=== PATIENT | male | born 1960 | race Caucasian/White ===

== ENCOUNTER → 2021-03-15 12:26 | Outpatient (CLI) | payer MEDICARE, SELFPAY ==
--- NOTE | ~2021-03-15 | MR_ITS ---
EXAMINATION: MR lumbar spine wo con DATE: 03/15/2021 13:18 INDICATION: Lumbar radicular pain. TECHNIQUE: Magnetic resonance imaging (MRI) of the lumbar spine was performed without intravenous con trast. Sequences included sagittal T2-weighted FSE, sagittal STIR FSE, sagittal T2-weighted FS FSE, s agittal T1-weighted FSE, and axial T2-weighted FSE. COMPARISON: Lumbar spine MRI 03/05/2014 FINDINGS: There is 3 degrees levocurvature of lumbar spine. There are chronic bilateral L5 pars defec ts. There is 10 mm anterolisthesis of L5 on S1. There is 3 mm retrolisthesis of L3 on L4 and L4 on L5 . Vertebral body heights are normal. There is moderately decreased disc height at L3-L4 and L5-S1 wit h endplate remodeling. Osseous central spinal canal developmentally small from L2 to L4. The distal s jhon cord signal intensity is normal. The conus medullaris is at T12-L1. The following disc levels a re specifically discussed: L1-L2: The disc is bulging and has an annular fissure. There is severe bilateral facet joint osteoart hritis. There is mild bilateral neural foraminal stenosis. There is mild central canal stenosis. L2-L3: The disc is bulging and has an annular fissure. There is mild bilateral facet joint osteoarthr itis. There is mild bilateral neural foraminal stenosis. There is mild central canal stenosis. L3-L4: The disc is bulging and has an annular fissure. There is moderate right and mild left facet miguel int osteoarthritis. There is moderate bilateral neural foraminal stenosis. There is mild central miah l stenosis. L4-L5: The disc is bulging and has an annular fissure. There is severe bilateral facet joint osteoart hritis. There is moderate bilateral neural foraminal stenosis. There is mild central canal stenosis. L5-S1: The disc is bulging and has an annular fissure. There is moderate bilateral facet joint osteoa rthritis. There is moderate bilateral neural foraminal stenosis. There is no central canal stenosis. IMPRESSION: 1. Moderate lumbar spondylosis, stable from 03/05/2014. 2. Chronic bilateral L5 pars defects with grade 1 anterolisthesis of L5 on S1. Reviewed, dictated and finalized at location D. [employer]
== END ==
PROVIDERS: PCP Internal Medicine
DX: M47.26 Other spondylosis with radiculopathy, lumbar region (principal)
CPT/HCPCS: 72148

== ENCOUNTER 2021-05-31 07:35 | Outpatient (CLI) | payer MEDICARE, SELFPAY ==
--- NOTE | ~2021-05-31 | CT_ITS ---
EXAMINATION: CT lung screening DATE: 05/31/2021 07:56 INDICATION: Personal history of tobacco dependence. TECHNIQUE: Computed tomography (CT) of the chest was performed without intravenous contrast. The dose -length product was 563.54 mGy-cm. Automated exposure control and iterative reconstruction technique were employed. COMPARISON: Chest dated 02/20/2007 FINDINGS: There are pleural calcifications, consistent with previous asbestos exposure. Heart size no rmal. No significant pleural or pericardial effusion. There are gallstones with distention of the gal lbladder. No thoracic lymphadenopathy. There is mediastinal lipomatosis. There is focal sclerosis of the left humerus proximally. Recommend plain film correlation. There are degenerative changes of the acromioclavicular joints. Mild thoracic spondylosis.There is a 2 mm right upper lobe nodule, image 51 . There is a 2 mm left upper lobe nodule, image 30. There is a 4 mm left lower lobe nodule, image 102 . There is mild nodular thickening of the minor fissure. No endobronchial lesions. IMPRESSION: 1. Lung-RADS category 2: Benign appearance or behavior. Continue annual screening with noncontrast lo w-dose chest CT in 12 months. Reviewed, dictated and finalized at location B. IMPRESSION: 1. Lung-RADS category 2: Benign appearance or behavior. Continue annual screeni ng with noncontrast low-dose chest CT in 12 months.
== END 2021-05-31 07:36 | disposition home or self-care (01) ==
PROVIDERS: PCP Internal Medicine; Visit Provider Internal Medicine
DX: Z12.2 Encounter for screening for malignant neoplasm of respiratory organs (principal); Z87.891 Personal history of nicotine dependence
CPT/HCPCS: 71271

== ENCOUNTER 2022-08-06 10:09 | Outpatient (CLI) | payer MEDICARE, SELFPAY ==
--- NOTE | ~2022-08-06 | CT_ITS ---
EXAMINATION: CT lung screening DATE: 08/06/2022 10:29 INDICATION: TECHNIQUE: Computed tomography (CT) of the chest was performed without intravenous contrast. The dose -length product was 598.13 mGy-cm. Automated exposure control and iterative reconstruction technique were employed. COMPARISON: CT dated 05/31/2021 9 FINDINGS: Interval development of enlarged mediastinal lymph nodes. For example right paratracheal ly mph node measures 12 mm short axis compared with 7 mm on prior examination. No significant pleural or pericardial effusion. Heart size normal. No significant pleural or pericardial effusion. There are g allstones. There are pleural calcifications on the left. There are new areas of patchy airspace conso lidation in both lungs, which may represent atelectasis and/or pneumonia. Mildly elevated right diaph ragm. There are left pleural calcifications, consistent with previous asbestos exposure. Stable 4 mm left lower lobe nodule, axial image 91 and coronal image 81. No new pulmonary nodules or masses. IMPRESSION: 1. Lung-RADS category 2: Benign appearance or behavior. Continue annual screening with noncontrast lo w-dose chest CT in 12 months. 2: Interval development of patchy bilateral consolidation in both lungs which may represent atelecta sis and/or pneumonia. 3: Interval development of mediastinal lymph node enlargement, likely reactive. 4: Cholelithiasis. Reviewed, dictated and finalized at location B. IMPRESSION: 1. Lung-RADS category 2: Benign appearance or behavior. Continue annual screeni ng with noncontrast low-dose chest CT in 12 months. 2: Interval development of patchy bilateral consolidation in both lungs which may represent atelectasis and/or pneumonia. 3: Interval development of mediastinal lymph node enlargement, likely reactive. 4: Cholelithiasis.
== END 2022-08-06 10:10 | disposition home or self-care (01) ==
PROVIDERS: PCP Family Medicine; Visit Provider Nurse Practitioner
DX: Z12.2 Encounter for screening for malignant neoplasm of respiratory organs (principal); Z87.891 Personal history of nicotine dependence; K80.20 Calculus of gallbladder without cholecystitis without obstruction
CPT/HCPCS: 71271

== ENCOUNTER 2022-09-19 09:15 | Outpatient (CLI) | payer MEDICARE, SELFPAY ==
--- NOTE | 2022-10-08 16:43 | WPDHOMESLEEP ---
Sleep Study - Home Unattended Date of Study: 09/19/22 Ordering Provider: Christopher Kirk APRN Interpreting Provider: Cici Kasper, DO Home Sleep Study Type: Watch PAT Height: 1.78 m Weight: 140.614 kg Body Mass Index: 44.4 Neck Circumference (inches): 21 [place]: 11 Reason for Sleep Study Daytime hypersomnia Sleep History The patient is a 62-year-old male with diabetes, hypertension, hyperlipidemia, neuropathy, chronic pain and history of tobacco use that had a sleep study ordered by his primary care for evaluation of sleep apnea. The patient denies awakening from sleep short of breath. He denies awakening at night with heartburn, belching or cough. He constantly snores loudly enough that others complain. He denies having trouble sleeping when he has a cold. He denies waking up gasping for air throughout the night. He denies having breathing problems at night observed by himself or others. He denies sweating excessively at night. He denies having heart palpitations or irregular heartbeats during the night. He constantly falls asleep during the day but never while driving. He denies sleep paralysis and cataplexy. He denies having trouble at school or work due to sleepiness. He rarely experiences vivid dreamlike scenes upon awakening or falling asleep. He denies feeling afraid of going to sleep. He denies having nightmares. He occasionally remembers his dreams. He occasionally has thoughts racing through his mind. He occasionally feels sad, depressed and anxious. He rarely has muscular tension. He occasionally notices parts of his body jerk. He denies kicking during the night. He frequently has crawling and aching feelings in his legs and frequently has leg pain during the night. He denies grinding his teeth during sleep and denies awakening with morning jaw pain. He is constantly bothered by pain during the day and frequently awakened by pain during the night. He frequently wakes up feeling stiff in the morning. He constantly wakes up with sore or achy muscles. He constantly wakes up with pain in the neck, spine or other joints. He goes to bed between 9-10 p.m. on both weekdays and weekends. It takes him 10 minutes to fall asleep. He wakes up 4-5 times throughout the night for unknown reasons and is able to fall back asleep within 5-10 minutes. He wakes up between 5-6 a.m. on both weekdays and weekends. He typically gets 6 hours of sleep per night. He will stay in bed for 5-10 minutes after waking up in the morning. He currently lives with his sister. He does not consume any caffeinated beverages within 2 hours of bedtime. He does not engage in physical exercise before bedtime. He will watch television before falling asleep. He will take naps in the afternoon or the evening but they are refreshing. He consumes 12 oz of caffeinated beverage per day. He quit smoking cigarettes 2 years ago. He denies alcohol and recreational drug use. [facility] Past Medical History Medical History Arthritis Change in bowel function Drowsiness High blood sugar High cholesterol Hypertension Leg pain Numbness Sexual dysfunction Snoring Swollen feet Tired Surgical History Surgical History History of tonsillectomy Family History Family History Father Diabetes mellitus Hypertension Mother Cancer of kidney Sibling Malignant neoplasm of prostate Grandparent Lung cancer Grandparent Lung cancer Other Family history of arthritis Social History Social History Smoking packs per day: 1.5 Smoking cigarettes per day: 30.0 Years smoked: 40 Smoking pack-years: 60.00 Smoking status: Former smoker Tobacco type: cigarettes Second hand tobacco smoke exposure: Yes Smoking end da
[2022-10-08 16:56] VITALS: BMI 44.4
--- NOTE | 2022-10-24 11:35 | SLEEP ---
NEW CALLS [id number]
== END 2022-09-21 09:50 | disposition home or self-care (01) ==
LOC: ANHCSM 09:15
PROVIDERS: PCP Family Medicine; Visit Provider Nurse Practitioner
DX: R06.83 Snoring (principal); R53.83 Other fatigue; G47.33 Obstructive sleep apnea (adult) (pediatric)
CPT/HCPCS: 95800

== ENCOUNTER 2022-10-16 08:43 | Outpatient (CLI) | payer MEDICARE, SELFPAY ==
--- NOTE | ~2022-10-16 | XR_ITS ---
Clinical Indication: Smoking history PA and lateral views of the chest: Comparison: 02/20/2007 Findings: There is linear scarring or atelectasis right midlung. The lungs are otherwise clear, witho ut evidence of focal consolidation or pleural effusion. Cardiomediastinal silhouette is within mariangel l limits. Bones and soft tissues are unremarkable. Impression: Linear scarring or atelectasis right midlung, otherwise unremarkable exam. Reviewed, dictated and finalized at location M. Impression: Linear scarring or atelectasis right midlung, otherwise unremarkable exam.
== END 2022-10-16 08:44 | disposition home or self-care (01) ==
PROVIDERS: PCP Family Medicine; Visit Provider Nurse Practitioner
DX: Z12.2 Encounter for screening for malignant neoplasm of respiratory organs (principal); Z87.891 Personal history of nicotine dependence; J98.4 Other disorders of lung
CPT/HCPCS: 71046

== ENCOUNTER 2023-08-14 19:50 | Inpatient (IN) | payer MEDICARE, SELFPAY ==
[2023-08-14] VITALS (9 sets, daily range): BP systolic 100–158; BP diastolic 55–84; PULSE 92–110; RESP 19–26; TEMP 35.6–36.5; O2SAT 90–97; BMI 49.8
--- NOTE | ~2023-08-14 | CT_ITS ---
EXAMINATION:CT diagnostic chest wo con DATE: 08/15/2023 14:41 INDICATION: Congestive heart failure. Pleural effusion. TECHNIQUE: Computed tomography (CT) of the chest was performed without intravenous contrast. Automate d exposure control and iterative reconstruction technique were employed. The dose-length product (DLP ) was 1133.18 mGy-cm. COMPARISON: Chest CT 08/06/2022 FINDINGS: There is moderate atelectasis in the lungs with a dependent predominance. There is a calcif ied pleural plaque on the left. There is a small right pleural effusion. The heart size is normal. Th ere are coronary artery calcifications. No pericardial effusion. The central pulmonary arteries are e nlarged, consistent with pulmonary arterial hypertension. There are gallstones in the gallbladder, wh ich is distended. Body wall edema is noted. There are old healed right rib fractures. There is mild t horacic spondylosis. IMPRESSION: 1. Small right pleural effusion. 2. Cholelithiasis. Gallbladder distention may be secondary to fasting. Correlate with physical exam t o exclude acute cholecystitis. Reviewed, dictated and finalized at location A. IMPRESSION: 1. Small right pleural effusion. 2. Cholelithiasis. Gallbladder distention may be secondary to fasting. Correlat e with physical exam to exclude acute cholecystitis.
--- NOTE | ~2023-08-14 | US_ITS ---
EXAMINATION: US renal BI DATE: 08/16/2023 09:03 INDICATION: Acute on chronic kidney disease. TECHNIQUE: Multiple ultrasound grayscale images of the kidneys were obtained. COMPARISON: Chest CT 08/15/2023 FINDINGS: The right kidney measures 12.0 x 5.9 x 5.9 cm. The left kidney measures 12.6 x 6.1 x 5.3 cm. The kidn eys demonstrate normal parenchymal echogenicity. There is no hydronephrosis. The bladder is decompres sed by a Chan catheter. IMPRESSION: 1. Normal kidneys. No hydronephrosis. Reviewed, dictated and finalized at location A.
--- NOTE | ~2023-08-14 | US_ITS ---
BILATERAL LOWER EXTREMITY VENOUS ULTRASOUND Ordering provider: Rasta Diaz MD History: . R/O DVT . Comparison: None. FINDINGS: RIGHT LOWER EXTREMITY VEINS: --COMMON FEMORAL: Patent and free of thrombus. Normal compressibility, phasic flow and augmentation. --PROXIMAL SUPERFICIAL FEMORAL: Patent and free of thrombus. Normal compressibility, phasic flow and augmentation. --DISTAL SUPERFICIAL FEMORAL: Patent and free of thrombus. Normal compressibility, phasic flow and au gmentation. --POPLITEAL: Patent and free of thrombus. Normal compressibility, phasic flow and augmentation. --POSTERIOR TIBIAL: Patent and free of thrombus. Normal compressibility, phasic flow and augmentation . Solidus is not demonstrated. Lesser saphenous is also not demonstrated. LEFT LOWER EXTREMITY VEINS: --COMMON FEMORAL: Patent and free of thrombus. Normal compressibility, phasic flow and augmentation. --PROXIMAL SUPERFICIAL FEMORAL: Patent and free of thrombus. Normal compressibility, phasic flow and augmentation. --DISTAL SUPERFICIAL FEMORAL: Patent and free of thrombus. Normal compressibility, phasic flow and au gmentation. --POPLITEAL: Patent and free of thrombus. Normal compressibility, phasic flow and augmentation. --POSTERIOR TIBIAL: Patent and free of thrombus. Normal compressibility, phasic flow and augmentation . Solidus is not demonstrated. Lesser saphenous is also not demonstrated. IMPRESSION: Negative bilateral lower extremity venous US. No deep vein thrombosis. Reviewed, dictated and finalized at location A.
--- NOTE | ~2023-08-14 | US_ITS ---
EXAMINATION: US venous doppler [facility] DATE: 08/15/2023 16:06 INDICATION: Right lower limb pain and swelling. TECHNIQUE: Grayscale ultrasound images without and with compression and Doppler ultrasound images of the bilateral lower extremity veins were obtained. COMPARISON: None. FINDINGS: The visualized portions of right common femoral vein, profunda (deep) femoral vein, femoral vein, pop liteal vein, peroneal veins, posterior tibial veins, and greater saphenous vein outflow are patent. The visualized portions of left common femoral vein, profunda femoral vein, femoral vein, popliteal v ein, peroneal veins, posterior tibial veins, and greater saphenous vein outflow are patent. IMPRESSION: 1. No deep venous thrombosis. Reviewed, dictated and finalized at location A.
--- NOTE | ~2023-08-14 | XR_ITS ---
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 RESULT: Lines, tubes, and devices: None. Lungs and pleura: Low volumes with crowding. Patchy subsegmental bibasilar airspace disease. Linear lower lung opacities, likely representing atelectasis. Mild bilateral costophrenic angle blunting. Cardiomediastinal silhouette: Stable. Other: No acute osseous or upper abdominal finding. IMPRESSION: Subsegmental bibasilar atelectasis/consolidation. Possible small bilateral effusions. Reviewed, dictated and finalized at location K. IMPRESSION: Subsegmental bibasilar atelectasis/consolidation. Possible small bilateral effu sions.
--- NOTE | ~2023-08-14 | XR_ITS ---
EXAMINATION: XR chest 1V portable DATE: 08/22/2023 11:11 INDICATION: Hypoxia. TECHNIQUE: A single frontal view of the chest was obtained. COMPARISON: Chest single view 08/14/2023, chest CT 08/15/2023 FINDINGS: There is mild atelectasis in the mid and lower lung zones. No pleural effusion or pneumotho rax. The heart size is normal. IMPRESSION: 1. Mild atelectasis in the mid and lower lung zones. Reviewed, dictated and finalized at location A.
--- NOTE | ~2023-08-14 | CT_ITS ---
EXAMINATION: CTA chest PE protocol DATE: 08/22/2023 16:27 INDICATION: Hypoxia. TECHNIQUE: Computed tomography angiography (CTA) of the chest was performed with 200 mL Omnipaque-350 intravenous contrast timed to evaluate the pulmonary arteries. Coronal maximum intensity projection 3D-reconstructions were created by the technologist. Automated exposure control and iterative reconst ruction technique were employed. The dose-length product was 2027.88 mGy-cm. COMPARISON: Chest CT 08/15/2023 FINDINGS: The lungs demonstrate moderate atelectasis with dependent predominance. There is a calcifie d pleural plaque at left lung base. No pleural effusion. The heart size is normal. No pericardial eff usion. There is no pulmonary embolus. The gallbladder is distended and contains gallstones. There is mildly enlarged right hilar lymph node, likely reactive. There is mild thoracic spondylosis. IMPRESSION: 1. No pulmonary embolus. 2. Moderate atelectasis in the lungs again seen. 3. Cholelithiasis. Gallbladder distention may secondary to fasting. Correlate with physical exam for evidence of acute cholecystitis. Reviewed, dictated and finalized at location A. IMPRESSION: 1. No pulmonary embolus. 2. Moderate atelectasis in the lungs again seen. 3. Cholelithiasis. Gallbladder distention may secondary to fasting. Correlate w ith physical exam for evidence of acute cholecystitis.
--- NOTE | 2023-08-14 19:54 | ECG_ITS ---
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 Measurements Intervals [place] Rate: 104 P: 53 DC: 185 QRS: 24 QRSD: 105 T: 34 QT: 326 QTc: 430 Interpretive Statements SINUS TACHYCARDIA DELAYED PRECORDIAL R/S TRANSITION POSSIBLE INFERIOR MYOCARDIAL INFARCTION , PROBABLY OLD BORDERLINE ST-T WAVE ABNORMALITY- LAT/HIGH LAT LEADS ABNORMAL ECG No previous ECG available for comparison Electronically Signed On 08-15-2023 09:23:58 CDT by Onesimo Pedraza D.O.
[2023-08-14] MEDS: FUROSEMIDE INJ 40 MG/4 ML VIAL IV PUSH (20:05)
[2023-08-14] MEDS: Please add drug allergy info to patient profile. 1 EACH XX (20:06)
[2023-08-14 20:14] LABS: Basophils Absolute Auto 0.1 K/mm3 (0.0-0.1); Basophils Percent Auto 0.4 % (0.2-1.2); Hemoglobin 17.6 g/dL (14.0-18.0); Immature Granulocyte Absolute 0.19 K/mm3 (0.00-0.031); Immature Granulocyte Percent A 1.5 % (0-0.5); Lymphocytes Absolute Auto 0.92 K/mm3 (0.9-3.2); Lymphocytes Percent Auto 7.2 % (18.3-44.2); Mean Corpuscular HGB Conc 29.8 g/dl (32-36); Mean Corpuscular Hemoglobin 31.3 pg (26-34); Mean Platelet Volume 10.6 fl (7.4-10.4); Monocytes Absolute Auto 2.1 K/mm3 (0.1-0.6); Monocytes Percent Auto 16.5 % (2.6-8.5); Neutrophils Absolute Auto 9.4 K/mm3 (1.3-6.7); Neutrophils Percent Auto 74.4 % (45.5-73.1); Platelet Count Result 214 k/mm3 (150-375); Red Blood Count 5.62 M/mm3 (4.6-6.20); Red Cell Distribution Width 16.9 % (11.5-14.5); White Blood Count 12.7 K/mm3 (4.5-10.0)
[2023-08-14 20:24] LABS: Ethanol < 10 mg/dL (<10)
[2023-08-14 20:25] LABS: Alanine Aminotransferase 38 U/L (6-50); Albumin Level 4.7 g/dL (3.5-5.1); Alkaline Phosphatase 92 U/L (38-126); Anion Gap 14 mmol/L (4-12); Aspartate Amino Transferase 71 U/L (17-59); Bilirubin,Total 2.1 mg/dL (0.2-1.3); Blood Urea Nitrogen 24 mg/dL (9-20); Calcium 8.4 mg/dL (8.4-10.2); Carbon Dioxide 23 mmol/L (22-30); Chloride 101 mmol/L (98-107); Estimated CRCL calculation 64 ml/min; Estimated Glomerular Filt Rate 47; Glucose 336 mg/dL (65-110); INR 1.3; Lipase 272 U/L (23-300); Magnesium 2.4 mg/dL (1.6-2.3); Potassium 5.4 mmol/L (3.4-5.0); Sodium 138 mmol/L (137-145)
[2023-08-14 20:26] LABS: Partial Thromboplastin Time 29.6 Seconds (22.3-36.8)
[2023-08-14 20:35] LABS: Lactic Acid Reflex 5.5 mmol/L (0.7-2.0)
[2023-08-14 20:40] LABS: Alveolar/Arterial O2 Gradient 567.1 mmHg; Base Excess ABG -8.1 mEq/l (+/-2.0); Fractional Inspired Oxygen 100 %; HCO3 ABG 23.3 mEq/l (22.0-26.0); Oxygen Content ABG 22.4 %vol (16.0-22.0); Oxygen Saturation ABG 88.5 % (95.0-100.0); Oxyhemoglobin 89.2 % THb (90.0-100.0); PO2 ABG 72.6 mmHg (80.0-100.0); PO2 FiO2 Ratio Arterial Blood 0.73 %; Total Hemoglobin 17.9 g/dL (12.0-18.0)
[2023-08-14 20:43] LABS: Device BIPAP; Modified Allen's Test Pass; PCO2 ABG 73.3 mmHg (35.0-45.0); Site Drawn RIGHT RADIAL; pH ABG 7.121 (7.350-7.450)
[2023-08-14 20:44] LABS: Expiratory Pressure 8 cmH2O; Inspiratory Pressure 18 cmH2O
[2023-08-14 20:50] LABS: NT Pro B Type Natriuretic Pept 5670 pg/mL (19.9-100); Troponin I 0.091 ng/mL (0.000-0.034)
[2023-08-14 20:50] LABS: Influenza A QL RT-PCR Negative (Negative); Influenza B QL RT-PCR Negative (Negative); RSV RNA, RT-PCR Negative (Negative); SARS-CoV-2 RNA PCR Negative (Negative)
[2023-08-14 20:55] LABS: Procalcitonin 0.3 ng/mL
--- NOTE | 2023-08-14 21:16 | PM.IMHP ---
H&P: HPI History of Present Illness Date/Time: 08/14/23 21:16 Chief Complaint: shortness of breath Narrative: This is a 62-year-old male with past medical history significant for obstructive sleep apnea, on CPAP, morbid obesity, congestive heart failure, patient was brought to the emergency room due to altered mental status History taking is limited as patient is on BiPAP at the time of my visit. Preliminary workup was significant for CBC with WBC count of 12, ABG was significant for a pH of 7.121, pCO2 of 73, PO2 of 70 patient was placed on BiPAP. A chest x-ray showed infiltrates. EXAMINATION:? XR chest 1V portable Exam Date/Time:? 08/14/2023 20:25 CDT HISTORY: dyspnea LOW O2 STATS [employer] [place] ? Comparison:? 10/16/2022. RESULT: Lines, tubes, and devices:? None. Lungs and pleura:? Low volumes with crowding. Patchy subsegmental bibasilar airspace disease. Linear lower lung opacities, likely representing atelectasis. Mild bilateral costophrenic angle blunting. Cardiomediastinal silhouette:? Stable. Other:? No acute osseous or upper abdominal finding. ? IMPRESSION: Subsegmental bibasilar atelectasis/consolidation. Possible small bilateral effusions. Review of Systems Review of Systems: shortness of breath ROS unobtainable: Yes unobtainable due to mental status and other ( patient on BiPAP) [facility] Social History Social History Smoking status: Former smoker Alcohol intake: never Substance use: never Do You Feel Safe in your Home?: Yes Lack of Transportation: No Lack of Food: Never True Current Housing: I Have Housing Concerned About Future Housing: No Difficulty Paying Gas/Electric Bills: No Difficulty Paying for Meds: No Currently Unemployed: No Education: High School Diploma/GED Difficulty w/ Childcare or Family Care: No Spiritual care concerns: No Meds Home Medications and Allergies Allergies Allergy/AdvReac Type Severity Reaction Status Date / Time No Known Allergies Allergy Verified 08/14/23 20:05 Vital Signs Vital Signs - 24 hr 08/14/23 19:48 08/14/23 19:58 08/14/23 19:58 Temperature 96.1 F L Pulse Rate 104 H 105 H Respiratory Rate 19 Blood Pressure 128/55 L Pulse Oximetry 96 97 Oxygen Delivery Non-Rebreather Mask Non-Rebreather Mask Oxygen Flow Rate 15 15 08/14/23 20:00 08/14/23 20:02 Temperature 96.1 F L Pulse Rate 110 H Respiratory Rate 19 Blood Pressure 128/55 L Pulse Oximetry 97 97 Oxygen Delivery BiPAP Oxygen Flow Rate Exam Narrative: patient is laying in a stretcher Const: General: comfortable, no acute distress, well developed, awake, ill appearing chronically, obese and other ( on BiPAP) Nutritional Appearance: obese morbidly obese Orientation/consciousness: oriented to person HENMT: Head: normal to inspection, normocephalic and atraumatic Ears: hearing grossly normal bilaterally Face/Nose/Sinus: normal facial exam Face and sinus: normal facial exam Eyes: General: appearance normal, both eyes and all related structures Pupils: Equal, round and reactive pupils present EOM: EOMs intact bilaterally Neck: Neck: full ROM, no lymphadenopathy and no JVD Thyroid: thyroid normal Lymphatic: no lymphadenopathy noted Resp: Effort & Inspection: normal respiratory effort, not labored, no paradoxical thoraco-abdom movements, no respiratory distress, not tachypneic, no use of accessory muscles, symmetric chest movement and other ( on BiPAP) Auscultation: clear to auscultation bilaterally Cardio: Jugular venous distension: no JVD Rate: regular rate Rhythm: regular rhythm Heart sounds: S1 normal heart sound present and S2 normal heart sound present GI: Inspection: Pannus present and obesity GI Palp: Yes Soft to palpation and Yes No hepatosplenomegaly present : General: Yes deferred Skin: Rashes: no rashes Wounds: no wounds Neuro: General: orie
--- NOTE | 2023-08-14 21:22 | ED.GENADULT ---
HPI - General Adult General Chief complaint: Shortness of Breath/Dyspnea Stated complaint: LOW O2, LETHARGIC, NOT ACTING RIGHT Time Seen by Provider: 08/14/23 19:53 History of Present Illness HPI narrative: Patient is a 62-year-old gentleman presents emergency department chief complaint of shortness of breath. Family reports the patient has been short of breath for some time and is actually been having shortness of breath with exertion for several months patient used swim a lot and now is at a point where he cannot even go swimming the patient has had significant increasing edema over the last several weeks and now has been short of breath with any form of ambulation. Related Data Allergies Allergy/AdvReac Type Severity Reaction Status Date / Time No Known Allergies Allergy Verified 08/14/23 20:05 Review of Systems Review of Systems: A 10 system review of systems was completed on the patient and is negative except for what is stated in the HPI. Nursing and ancillary documentation was reviewed. Exam Narrative: GENERAL: ill-appearing, well-nourished, and in mild acute respiratorydistress. HEAD: Normocephalic, atraumatic. EYES: PERRLA and EOMI. ENT: Nares clear, no rhinorrhea or epistaxis. Mucous membranes moist. NECK: Supple. CHEST: crackles to auscultation. mild respiratory distress. HEART: Regular rate and rhythm. No murmur heard. Normal peripheral pulses. ABDOMEN: Soft, nontender, nondistended, normal active bowel sounds. EXTREMITIES: Normal range of motion. 3+ edema. SKIN: Warm, dry, no rash. NEURO: No focal deficits. Alert and oriented x3. PSYCH: Normal mood and affect. Course Vital Signs Vital signs: Vital Signs Temperature 35.6 C L 08/14/23 19:48 Pulse Rate 104 H 08/14/23 19:48 Respiratory Rate 08/14/23 19:48 Blood Pressure 128/55 L 08/14/23 19:48 Pulse Oximetry 96 08/14/23 19:48 Oxygen Delivery Non-Rebreather Mask 08/14/23 19:48 Oxygen Flow Rate 15 08/14/23 19:48 Temperature 35.6 C L 08/14/23 20:00 Pulse Rate 110 H 08/14/23 20:00 Respiratory Rate 19 08/14/23 20:00 Blood Pressure 128/55 L 08/14/23 20:00 Pulse Oximetry 97 05/29/24 20:02 Oxygen Delivery BiPAP 08/14/23 20:02 Oxygen Flow Rate 15 08/14/23 19:[address] [facility] Narrative Medical decision making narrative: differential diagnosis includes pneumonia, CHF, ACS, electrolyte abnormality, renal failure, viral illness laboratory studies were obtained on the patient showed a white count 12.7 lactate was elevated ABG showed pH 7.121 pCO2 was 73.3. The patient was started on BiPAP electrolytes showed a BUN of 24 and creatinine 1.5 patient's lactate was 5.5 troponin 0.091 BNP was 5670 patient received IV Lasix in the emergency department also given the patient does have some consolidation on the chest x-ray and also a leukocytosis and elevated lactate the patient was empirically covered for community-acquired pneumonia. Case was discussed with the hospitalist the patient will receive further care in the inpatient setting Vital Signs Vital Signs: Vital Signs Temperature 35.6 C L 08/14/23 19:48 Pulse Rate 104 H 08/14/23 19:48 Respiratory Rate 08/14/23 19:48 Blood Pressure 128/55 L 08/14/23 19:48 Pulse Oximetry 96 08/14/23 19:48 Oxygen Delivery Non-Rebreather Mask 08/14/23 19:48 Oxygen Flow Rate 15 08/14/23 19:48 Temperature 35.6 C L 08/14/23 20:00 Pulse Rate 110 H 08/14/23 20:00 Respiratory Rate 08/14/23 20:00 Blood Pressure 128/55 L 08/14/23 20:00 Pulse Oximetry 97 08/14/23 20:02 Oxygen Delivery BiPAP 08/14/23 20:02 Oxygen Flow Rate 15 08/14/23 19:58 Lab Data 08/14/23 20:00 08/14/23 20:00 Labs: Lab Results 08/14/23 08/14/23 08/14/23 Range/Units 20:00 20:03 20:33 WBC 12.7 H (4.5-10.0) K/mm3 RBC 5.62 (4.6-6.20) M/mm3 Hgb 17.6 (14.0-18.0) g/dL Hct 59.0 H
[2023-08-14] MEDS: ASPIRIN 81 MG CHEWABLE TABLET 324 MG PO (21:26)
--- NOTE | 2023-08-14 21:42 | PC.NURSE ---
Pt O2 at 88% on bipap. MD Miguel notified. ED Respiratory notified that MD would like bipap settings changed.
[2023-08-14 22:34] LABS: Amphetamine Screen Urine Negative (Negative); Barbiturate Screen Urine Negative (Negative); Benzodiazepines Screen Urine Negative (Negative); Cannabinoid Screen Urine Negative (Negative); Cocaine Screen Urine Negative (Negative); Methadone Screen Urine Negative (Negative); Opiate Screen Urine Positive (Negative); Phencyclidine Screen Urine Negative (Negative)
[2023-08-14 22:50] LABS: Appearance Urine Clear (Clear); Bacteria Urine None Seen /hpf; Bilirubin Urine 1+ (Negative); Blood Urine Negative (Negative); Color Urine Dark Yellow (Yellow); Glucose Urine UA 3+ mg/dL (Negative); Ketones Urine Negative (Negative); Leukocyte Esterase Ur Negative LEU/UL (Negative); Need Manual Microscopic Reviewed; Nitrate Urine Negative (Negative); Non Pathogenic Casts >20; Protein Urine 1+ mg/dL (Negative); RBC Urine 0-2 /hpf (0-2); Specific Grav Ur 1.021 (1.001-1.035); Squamous Epithelial Cell Urine None Seen /hpf (Few); WBC Urine 0-5 /hpf (0-3)
[2023-08-14 22:51] LABS: Add Urine Microscopic? YES
--- NOTE | 2023-08-14 22:58 | ADMGEN ---
This patient, Walter Chavez, was admitted to IMU Room 203-01. Patient/family oriented to hospital policies and general routines including ID bracelet, bed and alarms, visiting hours, pain management, procedures, bathroom and other care routines, personal items, smoking policy, room service/diet, and visiting hours. Information on how to activate the Rapid Response Team has been discussed. Patient/Family are encouraged to report perceived risks to care and to ask questions if they do not understand what they are told or what they should do.
[2023-08-14 23:12] LABS: Reflex Lactic Acid Yes or No Add Lactic
[2023-08-14] MEDS: AZITHROMYCIN 500 MG/NS 250 ML 500 MG/250 ML BAG 250 MG IVPB (23:13)
[2023-08-14 23:51] LABS: Lactic Acid 2.1 mmol/L (0.7-2.0)
[2023-08-15] VITALS (31 sets, daily range): BP systolic 110–138; BP diastolic 61–112; PULSE 71–93; RESP 20–33; TEMP 36.5–36.9; O2SAT 88–97
[2023-08-15 00:10] LABS: Troponin I 0.576 ng/mL (0.000-0.034)
[2023-08-15] MEDS: FUROSEMIDE INJ 40 MG/4 ML VIAL IV PUSH ×3 (01:13→20:22)
[2023-08-15 01:49] LABS: Base Excess ABG -3.8 mEq/l (+/-2.0); Fractional Inspired Oxygen 100 %; HCO3 ABG 26.3 mEq/l (22.0-26.0); Oxygen Content ABG 22.7 %vol (16.0-22.0); Oxygen Saturation ABG 88.6 % (95.0-100.0); Oxyhemoglobin 89.8 % THb (90.0-100.0); PO2 ABG 67.2 mmHg (80.0-100.0); PO2 FiO2 Ratio Arterial Blood 0.67 %
[2023-08-15 01:50] LABS: PCO2 ABG 67.8 mmHg (35.0-45.0); pH ABG 7.206 (7.350-7.450)
[2023-08-15 01:51] LABS: Device NON-INVASIVE VENT; Modified Allen's Test Pass; Site Drawn RIGHT RADIAL
[2023-08-15 01:52] LABS: Non-Invasive Expiratory Pressure 12 CMH2O; Non-Invasive Inspiratory Pressure 22 CMH2O; Non-Invasive Vent Rate 25 /MIN
--- NOTE | 2023-08-15 06:00 | ECHO_ITS ---
Patient Info Name: Walter Chavez Age: 62 years : 1960 Gender: Male Ht: 70 in Wt: 347 lbs BSA: 2.87 m2 HR: 78 bpm BP: 142 / 65 mmHg Technical Quality: Fair Exam Date: 08/15/2023 7:44 AM Exam Location: Echo Lab Patient Status: Inpatient Admit Date: 08/14/2023 Staff Ordering Physician: Alen Rivera MD Palliative Nurse: Gaetano Franco RDCS Attending Provider: Bryn Alvarez MD Referring Physician: Miguel SZYMANSKI; Exam Type: CA echo dop color flow w con Study Info Indications - dyspnea - new onset chf Complete two-dimensional, color flow and Doppler transthoracic echocardiogram is performed with contrast to opacify the left ventricle and to improve the deliniation of the left ventricle endocardial borders. Contrast/Agitated Saline Contrast/Ag. Saline: Definity Amount: 5.00 ml Summary 1. Definity contrast administered improved wall motion interpretation. 2. Left ventricular chamber dimension is normal. 3. Left ventricular systolic function is normal, estimated at 60-65%. 4. There is mild concentric increased left ventricular wall thickness. 5. The left ventricular diastolic function is grade I diastolic dysfunction. 6. E/e' 7 is not elevated. 7. The mitral valve has mildly calcified leaflets. 8. No pulmonary hypertension, estimated pulmonary arterial systolic pressure is 35 mmHg. 9. Dilated inferior vena cava with >50% collapse upon inspiration consistent with elevated right atrial pressure, 10 mmHg. Left Ventricle Definity contrast administered improved wall motion interpretation. E/e' 7 is not elevated. Left ventricular chamber dimension is normal. Left ventricular systolic function is normal, estimated at 60-65%. There is mild concentric increased left ventricular wall thickness. The left ventricular diastolic function is grade I diastolic dysfunction. Right Ventricle Right ventricular chamber dimension is not well visualized. Left Atria Left atrial chamber dimension is normal. Right Atria Right atrial chamber dimension is normal. Aortic Valve The aortic valve is trileaflet. There is no aortic valve stenosis. There is no aortic valve regurgitation. Pulmonic Valve There is no pulmonic regurgitation. Mitral Valve The mitral valve has mildly calcified leaflets. There is no mitral valve stenosis. There is no mitral valve regurgitation. Tricuspid Valve There is no tricuspid valve regurgitation. No pulmonary hypertension, estimated pulmonary arterial systolic pressure is 35 mmHg. Pericardium/Pleural There is no pericardial effusion. Inferior Vena Cava Dilated inferior vena cava with >50% collapse upon inspiration consistent with elevated right atrial pressure, 10 mmHg. Aorta The aortic root size at the sinus of Valsalva is normal. Left Ventricular Outflow Tract Name Value Normal LVOT 2D LVOT Diameter 2.40 cm LVOT Doppler LVOT Peak Gradient 4 mmHg LVOT Mean Gradient 2 mmHg LVOT VTI 19.65 cm LVOT VTI/AV VTI Ratio 1.18 LVOT Stroke Volume 88.65 ml LVOT CO
[2023-08-15] MEDS: ASPIRIN 81 MG CHEWABLE TABLET PO (08:20)
[2023-08-15] MEDS: PERFLUTREN LIPID MICROSPHERES 1.5 ML VIAL DILUTED TO 10 ML TOTAL VOLUME IV PUSH (08:57)
--- NOTE | 2023-08-15 08:57 | IVDEFINITY ---
Prior to administration of IV Definity the patient was educated on the risks and benefits of the imaging enhancing agent including potential adverse side effects. The patient verbalized understanding. Allergies were verified. No exclusion criteria were identified and at least one of the following inclusion criteria were met: 1) physician request, 2) patient technically difficult to image (per the [place] [employer] guidelines of two or more segments not discernable within the apical view), or 3) questionable left ventricular function. ?
[2023-08-15 09:10] LABS: Alveolar/Arterial O2 Gradient 521.8 mmHg; Base Excess ABG -1.3 mEq/l (+/-2.0); Device NON-INVASIVE VENT; Fractional Inspired Oxygen 90 %; HCO3 ABG 26.4 mEq/l (22.0-26.0); Oxygen Content ABG 22.8 %vol (16.0-22.0); Oxygen Saturation ABG 89.9 % (95.0-100.0); Oxyhemoglobin 90.8 % THb (90.0-100.0); PCO2 ABG 54.8 mmHg (35.0-45.0); PO2 ABG 63.7 mmHg (80.0-100.0); PO2 FiO2 Ratio Arterial Blood 0.71 %; Site Drawn LEFT BRACHIAL; Total Hemoglobin 17.9 g/dL (12.0-18.0); pH ABG 7.301 (7.350-7.450)
[2023-08-15 09:11] LABS: Non-Invasive Expiratory Pressure 12 CMH2O; Non-Invasive Inspiratory Pressure 22 CMH2O; Non-Invasive Vent Rate 25 /MIN
[2023-08-15 09:42] LABS: Basophils Percent Auto 0.4 % (0.2-1.2); Eosinophils Percent Auto 0.2 % (0-4.4); Hematocrit 55.1 % (42.0-52.0); Immature Granulocyte Absolute 0.06 K/mm3 (0.00-0.031); Immature Granulocyte Percent A 0.6 % (0-0.5); Lymphocytes Absolute Auto 1.12 K/mm3 (0.9-3.2); Lymphocytes Percent Auto 10.8 % (18.3-44.2); Mean Corpuscular HGB Conc 30.9 g/dl (32-36); Mean Corpuscular Hemoglobin 31.2 pg (26-34); Mean Corpuscular Volume 101.1 fl (80-100); Mean Platelet Volume 10.6 fl (7.4-10.4); Monocytes Absolute Auto 1.5 K/mm3 (0.1-0.6); Monocytes Percent Auto 14.8 % (2.6-8.5); Neutrophils Absolute Auto 7.6 K/mm3 (1.3-6.7); Neutrophils Percent Auto 73.2 % (45.5-73.1); Nucleated Red Blood Cells Perc 1.6 % (0.0-0.2); Platelet Count Result 161 k/mm3 (150-375); Red Blood Count 5.45 M/mm3 (4.6-6.20); Red Cell Distribution Width 16.5 % (11.5-14.5); White Blood Count 10.3 K/mm3 (4.5-10.0)
[2023-08-15 10:01] LABS: Lactic Acid Reflex 1.3 mmol/L (0.7-2.0)
[2023-08-15 10:06] LABS: Anion Gap 6 mmol/L (4-12); Blood Urea Nitrogen 33 mg/dL (9-20); Calcium 8.4 mg/dL (8.4-10.2); Carbon Dioxide 32 mmol/L (22-30); Chloride 101 mmol/L (98-107); Estimated CRCL calculation 70 ml/min; Estimated Glomerular Filt Rate 47; Glucose 127 mg/dL (65-110); Magnesium 2.2 mg/dL (1.6-2.3); Phosphorus 3.6 mg/dL (2.5-4.5); Potassium 4.4 mmol/L (3.4-5.0); Sodium 139 mmol/L (137-145)
--- NOTE | 2023-08-15 11:24 | PC.NURSE ---
Spoke with Dr. Alvarez regarding pt's home medications. New order to continue all home medications starting now, except for the meloxicam and metformin; hold those medications until further notice. May start pt on moderate dose sliding scale. Orders enterd by AIDA
[2023-08-15 11:35] LABS: Glucose Point of Care 125 mg/dl (65-105)
--- NOTE | 2023-08-15 12:01 | PC.NURSE ---
Updated Dr. Brown with pt's condition. New order to continue to trend troponin until they peak. No need to call Field Test Engineer with critical troponin results, unless pt develops of chest pain.
--- NOTE | 2023-08-15 12:13 | PM.CNCAR ---
Assessment and Plan Assessment and plan (1) Acute hypercapnic respiratory failure: Code(s): J96.02 - Acute respiratory failure with hypercapnia Status: Acute Assessment and Plan: On BIPAP. Pulmonary has been consulted. (2) Congestive heart failure: Code(s): I50.9 - Heart failure, unspecified Status: Acute Assessment and Plan: Agree with IV Lasix for now. Please monitor strict I/Os. Continue Jardiance. (3) Lung infiltrate: Code(s): R91.8 - Other nonspecific abnormal finding of lung field Status: Acute Assessment and Plan: On antibiotics for possible pneumonia, management as per primary team. (4) NILDA (acute kidney injury): Code(s): N17.9 - Acute kidney failure, unspecified Status: Acute Assessment and Plan: SCr elevated at 1.5. Baseline levels unknown. (5) Elevated troponin: Code(s): R79.89 - Other specified abnormal findings of blood chemistry Status: Acute Assessment and Plan: No chest pain, EKG without ischemic changes. Echocardiogram with LVEF 60-65% without appreciable wall motion abnormalities. In setting of altered mental status, acute hypercarbic respiratory failure with pH of 7.1 on blood gas, CHF, NILDA. Will continue to trend troponins until peak. Continue ASA 81mg once daily. Will stop home Lovastatin and start high-intensity statin instead. Continue Toprol. Will determine need for ischemic evaluation depending on clinical course. (6) Morbid obesity with BMI of 45.0-49.9, adult: Code(s): E66.01 - Morbid (severe) obesity due to excess calories; Z68.42 - Body mass index [BMI] 45.0-49.9, adult Status: Acute Assessment and Plan: Recommend weight loss. Consider weight loss medication as an outpatient or outpatient referral to Bariatric surgery. (7) Diabetes mellitus: Code(s): E11.9 - Type 2 diabetes mellitus without complications Status: Acute Assessment and Plan: Management as per primary team. Will check Hgb A1c level. History of Present Illness History of Present Illness Consult date/time: 08/15/23 12:13 Requesting physician: Bryn Alvarez MD Consult reason: Other (Elevated troponin) Reason For Visit: Shortness of breath, CHF, Hypercapnic respiratory Narrative: We are consulted for elevated troponin. This is a 62 year old male with morbid obesity with BMI of 50, GIRISH, hypertension, diabetes who presented with altered mental status and acute respiratory failure. Patient reports shortness of breath for the past few weeks, mostly with exertion. Has chronic lower extremity edema, but thinks the swelling has been worse. Patient states he used to go swimming 1 mile a day, everyday, but has not been able to do that now; last time he went swimming was 2 months ago. Workup in the ER showed WBC 12.7, lactate was elevated at 2.1. ABG showed pH of 7.121, pCO2 73. CXR showed patchy subsegmental bibasilar airspace disease, possible small bilateral pleural effusions. The patient was placed on BIPAP. He was given IV Lasix. Patient denies any prior cardiac issues, does not see a warehouse operator. Troponins are 0.091, 0.576, 1.290, 2.090. NT pro BNP elevated at 5670. UDS is positive for opiates (Hydrocodone-Acetaminophen is listed as a home medication). EKG shows sinus tachycardia, nonspecific STTW abnormality. No prior EKG available for comparison. Echocardiogram shows LVEF 60-65%, grade 1 diastolic dysfunction, dilated IVC with >50% collapse. Review of Systems Review of Systems: All systems reviewed & are unremarkable except as noted in HPI and below (HPI) [facility] Social History Social History Smoking status: Former smoker Alcohol intake: never Substance use: never Do You Feel Safe in your Home?: Yes Lack of Transportation: No Lack of Food: Never True Current Housing: I Have Housing Concerned About Future Housing: No Difficulty Paying Ga
[2023-08-15 12:57] LABS: Hemoglobin A1C 6.4 % (<5.7)
[2023-08-15] MEDS: GABAPENTIN 300 MG CAPSULE PO ×2 (13:05→16:47)
[2023-08-15] MEDS: amLODIPine BESYLATE 5 MG TABLET PO (13:06)
[2023-08-15] MEDS: GLIMEPIRIDE 2 MG TABLET 4 MG PO (13:06)
[2023-08-15] MEDS: EMPAGLIFLOZIN 10 MG TABLET BY MOUTH (13:06)
[2023-08-15] MEDS: METOPROLOL TARTRATE 50 MG TAB PO ×2 (13:06→20:22)
[2023-08-15] MEDS: PIOGLITAZONE HCL 45 MG TABLET PO (13:06)
[2023-08-15] MEDS: CYCLOBENZAPRINE HCL 10 MG TABLET PO (13:06)
[2023-08-15 13:07] LABS: Cholesterol 107 mg/dL (0-200); HDL Direct 27 mg/dL; Triglycerides 119 mg/dL (<150)
[2023-08-15 13:18] LABS: LDL Cholesterol Direct 65 mg/dL
--- NOTE | 2023-08-15 13:19 | PM.CNPUL ---
Assessment and Plan Assessment and plan (1) Morbid obesity with BMI of 45.0-49.9, adult: Code(s): E66.01 - Morbid (severe) obesity due to excess calories; Z68.42 - Body mass index [BMI] 45.0-49.9, adult Status: Acute (2) Acute hypercapnic respiratory failure: Code(s): J96.02 - Acute respiratory failure with hypercapnia Status: Acute Assessment and Plan: The patient, who has a history of severe obesity and potential obstructive sleep apnea without home ventilation support, has been experiencing a gradually increasing shortness of breath over several weeks. The diagnosis is hypercapnic and hypoxemic respiratory failure, likely due to obesity hypoventilation and congestive heart failure. Initial arterial blood gases revealed both respiratory and metabolic acidosis due to elevated lactic acid levels. Since his admission, the patient's lactic acid levels have decreased and he has been receiving diuretics for his congestive heart failure. He is also being treated with antibiotics for a suspected lower respiratory tract infection, despite the absence of infection symptoms. As for the treatment plan, we will proceed with a non-contrast chest CT scan. The BiPAP settings and FiO2 have been adjusted to reduce pressure and FiO2 levels. We concur with the diuretic treatment. New blood gases will be drawn. A lower extremity study for DVT will also be conducted. Needs to go on DVT prophylaxis. I would repeat PT INR. The patient's condition will be closely monitored in collaboration with you. (3) Congestive heart failure: Code(s): I50.9 - Heart failure, unspecified Status: Acute (4) Lactic acidosis: Code(s): E87.20 - Acidosis, unspecified Status: Acute (5) Lung infiltrate: Code(s): R91.8 - Other nonspecific abnormal finding of lung field Status: Acute (6) Elevated troponin: Code(s): R79.89 - Other specified abnormal findings of blood chemistry Status: Acute (7) Diabetes mellitus: Code(s): E11.9 - Type 2 diabetes mellitus without complications Status: Acute History of Present Illness History of Present Illness Consult date: 08/15/23 Chief complaint: Shortness of breath, CHF, Hypercapnic respiratory Narrative: A 62-year-old male presented with escalating shortness of breath and increasing lower extremity edema over several weeks. He reported experiencing breathlessness during activities, which began 3-4 weeks prior to his admission, along with worsening lower extremity edema. He denied having any fever, chills, hemoptysis, chest pain, cough, or wheezing. Upon examination in the emergency room, he was diagnosed with hypoxemic hypercapnic respiratory failure and was provided with BiPAP support. He exhibited some acute changes in his mental state; however, his cognitive function has improved over the last 24 hours with BiPAP support. Currently, he is fully conscious while receiving BiPAP support with pressures set at 22/12, a respiratory rate of 25, and an FiO2 of 0.8. Initial chest x-ray revealed bilateral lower lobe infiltrates, likely atelectasis, small bilateral pleural effusions, and possible cardiomegaly. His BNP was significantly elevated, exceeding 5000. Admission arterial blood gases indicated combined respiratory and metabolic acidosis, likely chronic respiratory with an additional metabolic acidosis. His lactic acid levels were also high upon admission. He mentioned having undergone a sleep study elsewhere but he is not on home ventilatory support. Review of Systems Review of Systems: All systems reviewed & are unremarkable except as noted in HPI and below PMFSH Social History Social History Smoking status: Former smoker Alcohol intake: never Substance use: never Do You Feel Safe in your Home?: Yes Lack of Transportation: No Lack of Food: Never True Current Housing: I Have Housing Concerned Abo
[2023-08-15 13:37] LABS: Thyroid Stimulating Hormone 0.095 uIU/mL (0.465-4.680)
[2023-08-15 14:13] LABS: Alveolar/Arterial O2 Gradient 308.8 mmHg; Base Excess ABG 0.4 mEq/l (+/-2.0); Fractional Inspired Oxygen 60 %; HCO3 ABG 27.3 mEq/l (22.0-26.0); Oxygen Content ABG 22.3 %vol (16.0-22.0); Oxygen Saturation ABG 89.9 % (95.0-100.0); Oxyhemoglobin 90.2 % THb (90.0-100.0); PCO2 ABG 52.2 mmHg (35.0-45.0); PO2 ABG 61.6 mmHg (80.0-100.0); PO2 FiO2 Ratio Arterial Blood 1.03 %; Total Hemoglobin 17.6 g/dL (12.0-18.0); pH ABG 7.337 (7.350-7.450)
[2023-08-15 14:14] LABS: Device NON-INVASIVE VENT; Modified Allen's Test Pass; Site Drawn LEFT RADIAL
[2023-08-15 14:15] LABS: Non-Invasive Expiratory Pressure 6 CMH2O; Non-Invasive Inspiratory Pressure 14 CMH2O; Non-Invasive Vent Rate 16 /MIN
[2023-08-15] MEDS: HYDROcodone/acetaminophen (*CRX) 10-325 MG TABLET 1 TAB PO (16:48)
--- NOTE | 2023-08-15 19:07 | PM.IMPN ---
Progress Note: A&P Assessment and Plan (1) Acute hypercapnic respiratory failure: Code(s): J96.02 - Acute respiratory failure with hypercapnia Status: Acute Assessment and Plan: Admit to IMU under full inpatient status On continuous BiPAP Serial ABGs show slow improvement Pulmonary consult given for evaluation (2) Lung infiltrate: Code(s): R91.8 - Other nonspecific abnormal finding of lung field Status: Acute Assessment and Plan: patient started on antibiotics cultures in progress Follow-up with Pulmonary (3) Congestive heart failure: Code(s): I50.9 - Heart failure, unspecified Status: Acute Assessment and Plan: Continue with IV diuresis Daily intake and output Cardiology consult given for evaluation (4) Morbid obesity with BMI of 45.0-49.9, adult: Code(s): E66.01 - Morbid (severe) obesity due to excess calories; Z68.42 - Body mass index [BMI] 45.0-49.9, adult Status: Acute Assessment and Plan: lifestyle and diet modifications (5) Lactic acidosis: Code(s): E87.20 - Acidosis, unspecified Status: Acute Assessment and Plan: will hold metformin likely multifactorial Downtrending 5.5 > 2.1 > 1.3 ... Resolved (6) NIDLA (acute kidney injury): Code(s): N17.9 - Acute kidney failure, unspecified Status: Acute Assessment and Plan: will hold meloxicam daily intake and output renal ultrasound in a.m. Considered Nephrology evaluation (7) Diabetes mellitus: Code(s): E11.9 - Type 2 diabetes mellitus without complications Status: Acute Assessment and Plan: Continue diabetic meds Hold metformin Accu-Cheks qAC and qHS ordered with low-dose insulin coverage as per protocol (8) Elevated troponin: Code(s): R79.89 - Other specified abnormal findings of blood chemistry Status: Acute Assessment and Plan: Patient has elevated troponins secondary to likely myocardial demand ischemia versus NSTEMI Troponin peaked at 2.090, now slowly downtrending 2D echo ordered Cardiology evaluated the patient and monitor closely Ischemic evaluation as per Cardiology once patient is more stable Plan ? Patient seen and examined at bedside during my morning rounds ? Collaborated with patient's nurse at the bedside in detail and addressed all concerns ? Labs, electrolytes, radiology, investigations and test results reviewed ? Consult/Nursing/Ancilliary notes on the chart reviewed and appreciated ? Spoke with patient/sister at the bedside and answered all the questions that they had Repeat labs in a.m. Electrolyte replacement as per protocol. Patient will be monitored very closely on the floor. Further recommendations as per the hospital course. Time Spent With Patient Time with patient: 15 - 25 minutes Subjective Date/time seen: 08/15/23 19:07 Interval history: Patient seen and evaluated bedside. Continuing with BiPAP which is helping with his breathing. Seen by both Pulmonary and Cardiology for his breathing and elevated cardiac enzymes. Spoke with both patient and the sister at bedside in detail. Review of Systems Review of Systems: 14 systems were reviewed with pertinent positives and negatives per HPI. Except as documented in the HPI/progress notes, all other systems were reviewed and are negative. All systems reviewed & are unremarkable except as noted in HPI and below Exam Narrative: PHYSICAL EXAMINATION: Vital signs: Please see the chart General physical exam: Morbidly obese male, lying in bed with BiPAP in place, feels tired and fatigued Head/eyes: Atraumatic, EOMI, PERRLA ENT: Moist mucous membranes, nasal passages clear Neck: Supple, full range of motion, trachea midline CVS: S1 + S2, regular rate and rhythm, no murmurs Respiratory: Bilaterally poor air entry in both lung zarate, mild B/L crackles, +++ scattered bilateral rales and rhonchi, coarse bilateral breath so
[2023-08-15] MEDS: ENOXAPARIN 30 MG/0.3 ML SYRINGE SUB-Q (20:22)
[2023-08-15] MEDS: AZITHROMYCIN 500 MG/NS 250 ML 500 MG/250 ML BAG 250 MG IVPB (21:28)
[2023-08-15 21:37] LABS: Glucose Point of Care 111 mg/dl (65-105)
[2023-08-16] VITALS (28 sets, daily range): BP systolic 119–145; BP diastolic 59–76; PULSE 65–96; RESP 18–27; TEMP 36.2–36.5; O2SAT 91–97
[2023-08-16 00:05] LABS: Glucose Point of Care 101 mg/dl (65-105)
[2023-08-16] MEDS: HYDROcodone/acetaminophen (*CRX) 10-325 MG TABLET 1 TAB PO ×2 (00:52→08:21)
[2023-08-16 05:51] LABS: Basophils Percent Auto 0.3 % (0.2-1.2); Eosinophils Absolute Auto 0.1 K/mm3 (0-0.3); Hematocrit 52.9 % (42.0-52.0); Hemoglobin 16.7 g/dL (14.0-18.0); Immature Granulocyte Absolute 0.05 K/mm3 (0.00-0.031); Immature Granulocyte Percent A 0.5 % (0-0.5); Lymphocytes Absolute Auto 1.22 K/mm3 (0.9-3.2); Lymphocytes Percent Auto 12.2 % (18.3-44.2); Mean Corpuscular HGB Conc 31.6 g/dl (32-36); Mean Corpuscular Volume 98.1 fl (80-100); Mean Platelet Volume 10.8 fl (7.4-10.4); Monocytes Absolute Auto 1.7 K/mm3 (0.1-0.6); Monocytes Percent Auto 16.6 % (2.6-8.5); Neutrophils Percent Auto 69.4 % (45.5-73.1); Nucleated Red Blood Cells Perc 0.5 % (0.0-0.2); Platelet Count Result 161 k/mm3 (150-375); Red Blood Count 5.39 M/mm3 (4.6-6.20); Red Cell Distribution Width 15.9 % (11.5-14.5)
[2023-08-16 06:31] LABS: Anion Gap 6 mmol/L (4-12); Blood Urea Nitrogen 33 mg/dL (9-20); Calcium 8.4 mg/dL (8.4-10.2); Carbon Dioxide 32 mmol/L (22-30); Chloride 103 mmol/L (98-107); Estimated CRCL calculation 94 ml/min; Estimated Glomerular Filt Rate > 60; Glucose 52 mg/dL (65-110); Potassium 3.5 mmol/L (3.4-5.0); Sodium 141 mmol/L (137-145); Troponin I 0.809 ng/mL (0.000-0.034)
[2023-08-16] MEDS: DEXTROSE 50% 25 GM/50 ML SYRINGE IV PUSH ×2 (06:42→20:34)
[2023-08-16 07:03] LABS: Glucose Point of Care 92 mg/dl (65-105)
[2023-08-16] MEDS: GABAPENTIN 300 MG CAPSULE PO ×3 (08:21→18:00)
[2023-08-16] MEDS: amLODIPine BESYLATE 5 MG TABLET PO (08:21)
[2023-08-16] MEDS: FLUTICASONE PROPIONATE 0.05% NA SPR 16 GM BTL (*BKC) 1 SPRAY NASAL (08:21)
[2023-08-16] MEDS: EMPAGLIFLOZIN 10 MG TABLET BY MOUTH (08:21)
[2023-08-16] MEDS: ATORVASTATIN 40 MG TABLET 80 MG PO (08:22)
[2023-08-16] MEDS: METOPROLOL TARTRATE 50 MG TAB PO ×2 (08:22→20:45)
[2023-08-16] MEDS: PIOGLITAZONE HCL 45 MG TABLET PO (08:22)
[2023-08-16] MEDS: ASPIRIN 81 MG CHEWABLE TABLET PO (08:22)
[2023-08-16] MEDS: FUROSEMIDE INJ 40 MG/4 ML VIAL IV PUSH ×2 (08:22→20:45)
--- NOTE | 2023-08-16 09:18 | PM.PNPUL ---
Progress Note: A&P Assessment and Plan (1) Acute hypercapnic respiratory failure: Code(s): J96.02 - Acute respiratory failure with hypercapnia Status: Acute (2) Morbid obesity with BMI of 45.0-49.9, adult: Code(s): E66.01 - Morbid (severe) obesity due to excess calories; Z68.42 - Body mass index [BMI] 45.0-49.9, adult Status: Acute (3) Obesity hypoventilation syndrome: Code(s): E66.2 - Morbid (severe) obesity with alveolar hypoventilation Status: Acute Assessment and Plan: A 62-year-old male with a medical history of severe obesity and chronic lower limb edema has been suffering from progressively worsening shortness of breath spanning several weeks. Upon his admission, he was diagnosed with acute on chronic hypercapnic respiratory failure and metabolic acidosis, caused by high lactic acid levels. He has responded positively to noninvasive ventilatory support via BiPAP, although his pCO2 levels remain elevated according to the most recent ABG test. His respiratory status has been slowly improving with the aid of BiPAP and diuretics. A chest CT scan has shown predominantly atelectatic changes in the bases of his lungs, more notably on the right side. The treatment plan includes the continuation of BiPAP support at night, moving from the bed to a chair, and the addition of incentive spirometry. Considering the patient's clinical history and current symptoms, the case suggests a diagnosis of obesity hypoventilation syndrome. This syndrome refers to the combination of obesity and hypoventilation, which can lead to hypercapnia. To manage this condition, the use of a home ventilator with AVAPS mode seems appropriate. This mode of treatment differs from the traditional use of BiPAP support as it provides consistent ventilatory support adapted to the patient's needs, enhancing CO2 elimination, improving the symptoms and quality of life, and decreasing rate of hospitalizations associated with obesity hypoventilation syndrome. (4) Congestive heart failure: Code(s): I50.9 - Heart failure, unspecified Status: Acute (5) Lung infiltrate: Code(s): R91.8 - Other nonspecific abnormal finding of lung field Status: Acute (6) Diabetes mellitus: Code(s): E11.9 - Type 2 diabetes mellitus without complications Status: Acute Subjective Date/time seen: 08/16/23 09:18 Interval history: Patient has no new respiratory symptoms at this a.m.. Slept well last night on BiPAP support. Currently on chest supplemental oxygen. Exam Narrative: GENERAL APPEARANCE: Well developed, well nourished, alert and cooperative, appears to be in mild respiratory distress while on room air SKIN: Inspection of the skin reveals no rashes, ulcerations or petechiae. HEENT: Sclerae anicteric and conjunctivae pink and moist. Extraocular movements were intact and pupils were equal. NECK: Supple. There was no thyroid enlargement, and no tenderness, or masses were felt. LUNGS: Decreased breath sounds and crackles at bases posteriorly no wheezing CARDIAC: There was a regular rate and rhythm without any murmurs, gallops, rubs. ABDOMEN: Soft and nontender with normal bowel sounds. LYMPH NODES: No lymphadenopathy was appreciated in the neck. EXTREMITIES: No cyanosis, clubbing; chronic stasis dermatitis changes along with edema in lower extremities. NEUROLOGIC: Alert and oriented x 3, moving all extremities. Objective Data Vital Signs Vital Signs: Vital Signs - 24 hr 08/15/23 10:00 08/15/23 11:17 08/15/23 12:00 Temperature 36.8 C Pulse Rate 86 84 Respiratory Rate 26 H Blood Pressure 113/66 Pulse Oximetry 97 92 Oxygen Delivery BiPAP Oxygen Flow Rate Fraction of Inspired Oxygen 80 08/15/23 11:47 08/15/23 12:01 08/15/23 13:06 Temperature Pulse Rate 84 87 Respiratory Rate 26 H Blood Pressure Pulse Oximetry 94 93 Oxygen Delivery BiPAP BiPAP Oxygen Flow Rate Fraction
[2023-08-16 10:52] LABS: Free T4 Free Thyroxine 1.92 ng/mL (0.78-2.19)
[2023-08-16 11:59] LABS: Glucose Point of Care 49 mg/dl (65-105)
[2023-08-16 12:18] LABS: MRSA (PCR) NOT DETECTED (NOT DETECTE)
[2023-08-16 12:19] LABS: Glucose Point of Care 344 mg/dl (65-105)
--- NOTE | 2023-08-16 12:26 | PM.PNCARD ---
Progress Note: A&P Assessment and Plan (1) Obesity hypoventilation syndrome: Code(s): E66.2 - Morbid (severe) obesity with alveolar hypoventilation Status: Acute (2) Elevated troponin: Code(s): R79.89 - Other specified abnormal findings of blood chemistry Status: Acute Plan This is a 62-year-old man with obesity hypoventilation syndrome and hypercapnic respiratory failure with severe acidosis on presentation. His troponin levels were sampled and are moderately elevated now declining. This is the situation known as type 2 myocardial infarction related to the primary problem which is hypoventilation, hypercapnic respiratory failure and acidosis. Noninvasive ventilator support has been recommended and is being arranged. I do not believe there is any other reason to suspect an acute coronary syndrome. I would tend not to pursue ischemia evaluation at this point because given his body habitus there are no great options for noninvasive testing, Lexiscan nuclear stress test can be done at some point but the likelihood of there being a normal scan in this patient's body habitus are close to 0. This would lead to a difficult conversation regarding an angiogram which would be otherwise unnecessary. Will follow with you while he is in the hospital but at this point I do not believe further cardiac testing is needed Rasta Smith MD [facility] Subjective Date/time seen: Date of service: 08/16/23 12:26 Interval history: Follow-up visit in this 62-year-old man with: Elevated troponin appears to be the result of hypercapnic respiratory failure with morbid obesity and obstructive apnea. Patient has no symptoms of ischemia, no ECG changes of ACS and troponin levels that were elevated in this setting. Laboratory data on arrival also was remarkable for severe acidemia. He currently is comfortable, essentially asymptomatic and currently just on nasal cannula oxygen. Exam Const: General: comfortable and no acute distress Other: Morbidly obese white male watching television in no distress at this time HENMT: Mouth: Yes moist mucous membranes Eyes: Sclera: sclerae normal Neck: Neck: supple Other: No ability to assess venous distention given his body habitus Resp: Effort & Inspection: normal respiratory effort Other: Breath sounds are distant but essentially clear Cardio: Rate: regular rate Rhythm: regular rhythm Other: PMI is not palpable GI: GI Palp: Yes Soft to palpation Auscultation: normal bowel sounds Skin: General skin exam: normal color Neuro: Other: Alert and oriented x3 Extrem: Other: Adequate perfusion, chronic venous insufficiency noted Objective Data Vital Signs Vital Signs: Vital Signs - 24 hr 08/15/23 13:06 08/15/23 13:06 08/15/23 14:00 Temperature Pulse Rate 87 86 74 Respiratory Rate 26 H Blood Pressure Pulse Oximetry 92 Oxygen Delivery BiPAP Oxygen Flow Rate Fraction of Inspired Oxygen 08/15/23 14:08 08/15/23 14:47 08/15/23 16:00 Temperature 36.9 C Pulse Rate 71 74 74 Respiratory Rate 25 H 29 H 26 H Blood Pressure 138/112 H Pulse Oximetry 92 92 93 Oxygen Delivery BiPAP BiPAP Oxygen Flow Rate Fraction of Inspired Oxygen 08/15/23 16:10 08/15/23 16:00 08/15/23 16:20 Temperature Pulse Rate 71 Respiratory Rate 27 H Blood Pressure Pulse Oximetry 92 90 89 L Oxygen Delivery BiPAP BiPAP High Flow Nasal Cannula Oxygen Flow Rate 10 Fraction of Inspired Oxygen 50 08/15/23 16:00 08/15/23 17:53 08/15/23 20:18 Temperature Pulse Rate 72 76 93 Respiratory Rate 20 Blood Pressure Pulse Oximetry 90 Oxygen Delivery High Flow Nasal Cannula Oxygen Flow Rate 10 Fraction of Inspired Oxygen 08/15/23 20:22 08/15/23 20:24 08/15/23 20:00 Temperature 36.6 C Pulse Rate 83 81 81 Respiratory Rate 22 H 22 H Blood Pressure 124/65 Pulse Oximetry 96 96 Oxygen Deliv
--- NOTE | 2023-08-16 12:35 | PC.NURSE ---
Follow-up blood glucose after treatment was 78.
[2023-08-16 12:39] LABS: Glucose Point of Care 78 mg/dl (65-105)
[2023-08-16] MEDS: GLIMEPIRIDE 2 MG TABLET 4 MG PO (13:02)
[2023-08-16] MEDS: POTASSIUM CHLORIDE 20 MEQ ER TABLET 40 MEQ PO (13:02)
[2023-08-16] MEDS: ENOXAPARIN 30 MG/0.3 ML SYRINGE SUB-Q ×2 (13:06→20:45)
--- NOTE | 2023-08-16 14:45 | PCRCNOTE ---
Pt has been approved for non-invasive vent for home use thru [facility]. Setting and order has been scanned into EMR. JAKI WITH [facility] WILL HAVE RT SET UP PT ON MACHINE IN HOSPITAL THE NIGHT PRIOR TO D/C TO ENSURE HE IS COMFORTABLE WITH IT. CONTACT JAKI WITH [employer] FOR ASSISTANCE AT [facility] SETTINGS: Vt 550ML MAX PRESSURE 25 cmH2o MIN PRESSURE 12 cmH2o EPAP MAX 18 cm H2o EPAP MIN 5 cmH2o
[2023-08-16 15:59] LABS: Glucose Point of Care 94 mg/dl (65-105)
--- NOTE | 2023-08-16 17:32 | PM.IMPN ---
Progress Note: A&P Assessment and Plan (1) Acute hypercapnic respiratory failure: Code(s): J96.02 - Acute respiratory failure with hypercapnia Status: Acute Assessment and Plan: Admit to IMU under full inpatient status Patient weaned off from continuous BiPAP ... Now on a high flow oxygen Serial ABGs show slow improvement Pulmonary consult given for evaluation (2) Lung infiltrate: Code(s): R91.8 - Other nonspecific abnormal finding of lung field Status: Acute Assessment and Plan: patient started on antibiotics cultures in progress Follow-up with Pulmonary (3) Congestive heart failure: Code(s): I50.9 - Heart failure, unspecified Status: Acute Assessment and Plan: Continue with IV diuresis Daily intake and output Cardiology consult given for evaluation (4) Morbid obesity with BMI of 45.0-49.9, adult: Code(s): E66.01 - Morbid (severe) obesity due to excess calories; Z68.42 - Body mass index [BMI] 45.0-49.9, adult Status: Acute Assessment and Plan: lifestyle and diet modifications (5) Lactic acidosis: Code(s): E87.20 - Acidosis, unspecified Status: Acute Assessment and Plan: will hold metformin likely multifactorial Downtrending 5.5 > 2.1 > 1.3 ... Resolved (6) NILDA (acute kidney injury): Code(s): N17.9 - Acute kidney failure, unspecified Status: Acute Assessment and Plan: will hold meloxicam daily intake and output renal ultrasound in a.m. Considered Nephrology evaluation (7) Diabetes mellitus: Code(s): E11.9 - Type 2 diabetes mellitus without complications Status: Acute Assessment and Plan: Continue diabetic meds Hold metformin Accu-Cheks qAC and qHS ordered with low-dose insulin coverage as per protocol (8) Elevated troponin: Code(s): R79.89 - Other specified abnormal findings of blood chemistry Status: Acute Assessment and Plan: Patient has elevated troponins secondary to likely myocardial demand ischemia versus NSTEMI Troponin peaked at 2.090, now slowly downtrending 2D echo ordered which showed preserved left ventricular function with EF 60-65 % Patient has the mild concentric increased left ventricular wall thickness consistent with LVH Continue with beta-randy and cardiac meds as per cardiology Cardiology evaluated the patient and want to monitor him closely He is not a candidate for aggressive workup and intervention given his obesity-hypoventilation syndrome and multiple chronic medical issues Plan ? Patient seen and examined at bedside during my morning rounds ? Collaborated with patient's nurse at the bedside in detail and addressed all concerns ? Labs, electrolytes, radiology, investigations and test results reviewed ? Consult/Nursing/Ancilliary notes on the chart reviewed and appreciated ? Spoke with patient/sister at the bedside and answered all the questions that they had Repeat labs in a.m. Electrolyte replacement as per protocol. Patient will be monitored very closely on the floor. Further recommendations as per the hospital course. Time Spent With Patient Time with patient: 15 - 25 minutes Subjective Date/time seen: 08/16/23 17:32 Interval history: Patient lying in bed during my morning rounds. He has been weaned off his BiPAP. Currently on high-flow oxygen. Followed closely by Cardiology and Pulmonary. Review of Systems Review of Systems: 14 systems were reviewed with pertinent positives and negatives per HPI. Except as documented in the HPI/progress notes, all other systems were reviewed and are negative. All systems reviewed & are unremarkable except as noted in HPI and below ROS unobtainable: Yes other ( patient on BiPAP) Exam Narrative: PHYSICAL EXAMINATION: Vital signs: Please see the chart General physical exam: Morbidly obese male, lying in bed with BiPAP in place, feels tired and fatigued Head/eyes: Atra
[2023-08-16 20:20] LABS: Glucose Point of Care 41 mg/dl (65-105)
[2023-08-16] MEDS: CYCLOBENZAPRINE HCL 10 MG TABLET PO (20:45)
[2023-08-16 21:06] LABS: Glucose Point of Care 118 mg/dl (65-105)
[2023-08-16 21:06] LABS: Glucose Point of Care 57 mg/dl (65-105)
[2023-08-16] MEDS: AZITHROMYCIN 500 MG/NS 250 ML 500 MG/250 ML BAG 250 MG IVPB (21:24)
[2023-08-16] MEDS: DEXTROSE 10% 1,000 ML 75 ML IV CONT (22:21)
[2023-08-16 23:32] LABS: Glucose Point of Care 84 mg/dl (65-105)
[2023-08-16 23:39] LABS: Glucose Point of Care 107 mg/dl (65-105)
[2023-08-17] VITALS (27 sets, daily range): BP systolic 101–133; BP diastolic 64–92; PULSE 71–93; RESP 20–35; TEMP 36.4–37.4; O2SAT 89–96
[2023-08-17 02:03] LABS: Glucose Point of Care 89 mg/dl (65-105)
[2023-08-17 04:28] LABS: Basophils Percent Auto 0.4 % (0.2-1.2); Eosinophils Absolute Auto 0.1 K/mm3 (0-0.3); Eosinophils Percent Auto 1.6 % (0-4.4); Hematocrit 53.4 % (42.0-52.0); Hemoglobin 16.7 g/dL (14.0-18.0); Immature Granulocyte Absolute 0.03 K/mm3 (0.00-0.031); Immature Granulocyte Percent A 0.4 % (0-0.5); Lymphocytes Absolute Auto 0.94 K/mm3 (0.9-3.2); Lymphocytes Percent Auto 11.5 % (18.3-44.2); Mean Corpuscular HGB Conc 31.3 g/dl (32-36); Mean Corpuscular Hemoglobin 30.4 pg (26-34); Mean Corpuscular Volume 97.3 fl (80-100); Mean Platelet Volume 10.6 fl (7.4-10.4); Monocytes Absolute Auto 1.5 K/mm3 (0.1-0.6); Monocytes Percent Auto 18.4 % (2.6-8.5); Neutrophils Absolute Auto 5.5 K/mm3 (1.3-6.7); Neutrophils Percent Auto 67.7 % (45.5-73.1); Nucleated Red Blood Cells Perc 0.4 % (0.0-0.2); Platelet Count Result 168 k/mm3 (150-375); Red Blood Count 5.49 M/mm3 (4.6-6.20); Red Cell Distribution Width 15.5 % (11.5-14.5); White Blood Count 8.2 K/mm3 (4.5-10.0)
[2023-08-17 04:44] LABS: Anion Gap 6 mmol/L (4-12); Blood Urea Nitrogen 26 mg/dL (9-20); Calcium 8.3 mg/dL (8.4-10.2); Carbon Dioxide 34 mmol/L (22-30); Chloride 100 mmol/L (98-107); Estimated CRCL calculation 126 ml/min; Estimated Glomerular Filt Rate > 60; Glucose 67 mg/dL (65-110); Potassium 3.5 mmol/L (3.4-5.0); Sodium 140 mmol/L (137-145)
[2023-08-17 04:54] LABS: Glucose Point of Care 67 mg/dl (65-105)
[2023-08-17 05:30] LABS: Glucose Point of Care 91 mg/dl (65-105)
[2023-08-17] MEDS: HYDROcodone/acetaminophen (*CRX) 10-325 MG TABLET 1 TAB PO ×2 (05:31→15:06)
[2023-08-17 07:14] LABS: Glucose Point of Care 102 mg/dl (65-105)
[2023-08-17 07:28] LABS: Glucose Point of Care 91 mg/dl (65-105)
[2023-08-17] MEDS: POTASSIUM CHLORIDE 20 MEQ ER TABLET 40 MEQ PO (09:44)
[2023-08-17] MEDS: ATORVASTATIN 40 MG TABLET 80 MG PO (09:44)
[2023-08-17] MEDS: amLODIPine BESYLATE 5 MG TABLET PO (09:45)
[2023-08-17] MEDS: GABAPENTIN 300 MG CAPSULE PO ×3 (09:45→17:00)
[2023-08-17] MEDS: ASPIRIN 81 MG CHEWABLE TABLET PO (09:45)
[2023-08-17] MEDS: METOPROLOL TARTRATE 50 MG TAB PO ×2 (09:45→21:06)
[2023-08-17] MEDS: FUROSEMIDE INJ 40 MG/4 ML VIAL IV PUSH ×2 (09:47→21:06)
[2023-08-17] MEDS: ENOXAPARIN 30 MG/0.3 ML SYRINGE SUB-Q ×2 (09:48→09:50)
[2023-08-17] MEDS: FLUTICASONE PROPIONATE 0.05% NA SPR 16 GM BTL (*BKC) 1 SPRAY NASAL (09:55)
[2023-08-17 09:56] LABS: Glucose Point of Care 122 mg/dl (65-105)
[2023-08-17 11:44] LABS: Glucose Point of Care 100 mg/dl (65-105)
[2023-08-17 14:19] LABS: Glucose Point of Care 185 mg/dl (65-105)
[2023-08-17] MEDS: DEXTROSE 10% 1,000 ML 75 ML IV CONT (15:12)
--- NOTE | 2023-08-17 15:21 | PM.IMPN ---
Progress Note: A&P Assessment and Plan (1) Acute hypercapnic respiratory failure: Code(s): J96.02 - Acute respiratory failure with hypercapnia Status: Acute Assessment and Plan: Admit to IMU under full inpatient status Patient weaned off from continuous BiPAP ... Now on high flow oxygen to be weaned off as tolerated keeping O2 sats around 94% Serial ABGs show slow improvement Pulmonary consult and recommendations reviewed, appreciated and agreed with (2) Lung infiltrate: Code(s): R91.8 - Other nonspecific abnormal finding of lung field Status: Acute Assessment and Plan: patient started on antibiotics in the form of IV Rocephin and Zithromax cultures in progress Follow-up closely with Pulmonary (3) Congestive heart failure: Code(s): I50.9 - Heart failure, unspecified Status: Acute Assessment and Plan: Continue with IV diuresis Daily intake and output Cardiology consult and recommendations reviewed, appreciated and agreed with (4) Morbid obesity with BMI of 45.0-49.9, adult: Code(s): E66.01 - Morbid (severe) obesity due to excess calories; Z68.42 - Body mass index [BMI] 45.0-49.9, adult Status: Acute Assessment and Plan: lifestyle and diet modifications (5) Lactic acidosis: Code(s): E87.20 - Acidosis, unspecified Status: Acute Assessment and Plan: will hold metformin likely multifactorial Lactic acidosis Downtrending 5.5 > 2.1 > 1.3 ... Resolved (6) NILDA (acute kidney injury): Code(s): N17.9 - Acute kidney failure, unspecified Status: Acute Assessment and Plan: will hold meloxicam daily intake and output renal ultrasound shows normal kidneys with The renal functions are slowly improving and currently stable (7) Diabetes mellitus: Code(s): E11.9 - Type 2 diabetes mellitus without complications Status: Acute Assessment and Plan: Continue diabetic meds Hold metformin Accu-Cheks qAC and qHS ordered with low-dose insulin coverage as per protocol (8) Elevated troponin: Code(s): R79.89 - Other specified abnormal findings of blood chemistry Status: Acute Assessment and Plan: Patient has elevated troponins secondary to likely myocardial demand ischemia versus NSTEMI Troponin peaked at 2.090, now slowly downtrending 2D echo ordered which showed preserved left ventricular function with EF 60-65 % Patient has the mild concentric increased left ventricular wall thickness consistent with LVH Continue with beta-randy and cardiac meds as per cardiology Cardiology evaluated the patient and want to monitor him closely He is not a candidate for aggressive workup and intervention given his obesity-hypoventilation syndrome and multiple chronic medical issues Plan ? Patient seen and examined at bedside during my morning rounds ? Collaborated with patient's nurse at the bedside in detail and addressed all concerns ? Labs, electrolytes, radiology, investigations and test results reviewed ? Consult/Nursing/Ancilliary notes on the chart reviewed and appreciated ? Spoke with patient/sister at the bedside and answered all the questions that they had Repeat labs in a.m. Electrolyte replacement as per protocol. Patient will be monitored very closely on the floor. Further recommendations as per the hospital course. I am signing off. Patient's medical care will be taken over by my covering hospitalist provider in am. Time Spent With Patient Time with patient: 15 - 25 minutes Subjective Date/time seen: 08/17/23 15:21 Interval history: Patient seen and evaluated at bedside. Shortness of breath continues to improve gradually. He is still on high-flow oxygen via nasal cannula. Review of Systems Review of Systems: 14 systems were reviewed with pertinent positives and negatives per HPI. Except as documented in the HPI/progress notes, all other systems were reviewed and are negative.
[2023-08-17 16:44] LABS: Glucose Point of Care 128 mg/dl (65-105)
[2023-08-17 20:56] LABS: Glucose Point of Care 144 mg/dl (65-105)
[2023-08-17] MEDS: AZITHROMYCIN 500 MG/NS 250 ML 500 MG/250 ML BAG 250 MG IVPB (21:04)
[2023-08-17] MEDS: CYCLOBENZAPRINE HCL 10 MG TABLET PO (21:06)
[2023-08-17 23:37] LABS: Glucose Point of Care 139 mg/dl (65-105)
[2023-08-18] VITALS (19 sets, daily range): BP systolic 116–149; BP diastolic 63–77; PULSE 76–106; RESP 16–32; TEMP 36.1–37.2; O2SAT 91–98
[2023-08-18] MEDS: HYDROcodone/acetaminophen (*CRX) 10-325 MG TABLET 1 TAB PO ×3 (03:44→20:18)
[2023-08-18 04:42] LABS: Basophils Percent Auto 0.3 % (0.2-1.2); Eosinophils Absolute Auto 0.1 K/mm3 (0-0.3); Eosinophils Percent Auto 1.1 % (0-4.4); Hematocrit 51.2 % (42.0-52.0); Hemoglobin 16.3 g/dL (14.0-18.0); Immature Granulocyte Absolute 0.02 K/mm3 (0.00-0.031); Immature Granulocyte Percent A 0.2 % (0-0.5); Lymphocytes Absolute Auto 0.85 K/mm3 (0.9-3.2); Lymphocytes Percent Auto 8.7 % (18.3-44.2); Mean Corpuscular HGB Conc 31.8 g/dl (32-36); Mean Corpuscular Hemoglobin 30.7 pg (26-34); Mean Corpuscular Volume 96.4 fl (80-100); Mean Platelet Volume 10.7 fl (7.4-10.4); Monocytes Percent Auto 20.7 % (2.6-8.5); Neutrophils Absolute Auto 6.7 K/mm3 (1.3-6.7); Nucleated Red Blood Cells Perc 0.2 % (0.0-0.2); Platelet Count Result 150 k/mm3 (150-375); Red Blood Count 5.31 M/mm3 (4.6-6.20); Red Cell Distribution Width 15.2 % (11.5-14.5); White Blood Count 9.8 K/mm3 (4.5-10.0)
[2023-08-18 05:00] LABS: Anion Gap 4 mmol/L (4-12); Blood Urea Nitrogen 18 mg/dL (9-20); Calcium 8.4 mg/dL (8.4-10.2); Carbon Dioxide 38 mmol/L (22-30); Chloride 96 mmol/L (98-107); Estimated CRCL calculation 140 ml/min; Estimated Glomerular Filt Rate > 60; Glucose 107 mg/dL (65-110); Potassium 3.5 mmol/L (3.4-5.0); Sodium 138 mmol/L (137-145)
[2023-08-18 07:59] LABS: Glucose Point of Care 97 mg/dl (65-105)
--- NOTE | 2023-08-18 08:35 | PM.IMPN ---
Progress Note: A&P Assessment and Plan (1) Obesity hypoventilation syndrome: Code(s): E66.2 - Morbid (severe) obesity with alveolar hypoventilation Status: Acute (2) Diabetes mellitus: Code(s): E11.9 - Type 2 diabetes mellitus without complications Status: Acute (3) Elevated troponin: Code(s): R79.89 - Other specified abnormal findings of blood chemistry Status: Acute (4) NILDA (acute kidney injury): Code(s): N17.9 - Acute kidney failure, unspecified Status: Acute (5) Lung infiltrate: Code(s): R91.8 - Other nonspecific abnormal finding of lung field Status: Acute (6) Lactic acidosis: Code(s): E87.20 - Acidosis, unspecified Status: Acute (7) Morbid obesity with BMI of 45.0-49.9, adult: Code(s): E66.01 - Morbid (severe) obesity due to excess calories; Z68.42 - Body mass index [BMI] 45.0-49.9, adult Status: Acute (8) Acute hypercapnic respiratory failure: Code(s): J96.02 - Acute respiratory failure with hypercapnia Status: Acute Plan (1) Acute hypercapnic respiratory failure: ?Code(s): J96.02 - Acute respiratory failure with hypercapnia ?Status:?Acute ?Assessment and Plan: Admit to IMU under full inpatient status Patient weaned off from continuous BiPAP ...? Now on high flow oxygen to be weaned off as tolerated keeping O2 sats around 94% Serial ABGs show slow improvement Pulmonary consult and recommendations reviewed, appreciated and agreed with (2) Lung infiltrate: ?Code(s): R91.8 - Other nonspecific abnormal finding of lung field ?Status:?Acute ?Assessment and Plan: ?patient started on antibiotics in the form of IV Rocephin and Zithromax ?cultures in progress ?Follow-up closely with Pulmonary (3) Congestive heart failure: ?Code(s): I50.9 - Heart failure, unspecified ?Status:?Acute ?Assessment and Plan: Continue with IV diuresis Daily intake and output Cardiology consult and recommendations reviewed, appreciated and agreed with (4) Morbid obesity with BMI of 45.0-49.9, adult: ?Code(s): E66.01 - Morbid (severe) obesity due to excess calories; Z68.42 - Body mass index [BMI] 45.0-49.9, adult ?Status:?Acute ?Assessment and Plan: ?lifestyle and diet modifications (5) Lactic acidosis: ?Code(s): E87.20 - Acidosis, unspecified ?Status:?Acute ?Assessment and Plan: ?will hold metformin ?likely multifactorial Lactic acidosis Downtrending 5.5 > 2.1 > 1.3 ...? Resolved (6) NILDA (acute kidney injury): ?Code(s): N17.9 - Acute kidney failure, unspecified ?Status:?Acute ?Assessment and Plan: ?will hold meloxicam ?daily intake and output ?renal ultrasound shows normal kidneys with The renal functions are slowly improving and currently stable (7) Diabetes mellitus: ?Code(s): E11.9 - Type 2 diabetes mellitus without complications ?Status:?Acute ?Assessment and Plan: Continue diabetic meds Hold metformin Accu-Cheks qAC and qHS ordered with low-dose insulin coverage as per protocol (8) Elevated troponin: ?Code(s): R79.89 - Other specified abnormal findings of blood chemistry ?Status:?Acute ?Assessment and Plan: Patient has elevated troponins secondary to likely myocardial demand ischemia versus NSTEMI Troponin peaked at 2.090, now slowly downtrending 2D echo ordered which showed preserved left ventricular function with EF 60-65 % Patient has the mild concentric increased left ventricular wall thickness consistent with LVH Continue with beta-randy and cardiac meds as per cardiology Cardiology evaluated the patient and want to monitor him closely He is not a candidate for aggressive workup and intervention given his obesity-hypoventilation syndrome and multiple chronic medical issues consult PT OT Subjective Date/time seen: 08/18/23 08:35 Interval history: I saw and exam patient today. Vandana
[2023-08-18] MEDS: METOPROLOL TARTRATE 50 MG TAB PO ×2 (10:08→20:21)
[2023-08-18] MEDS: ENOXAPARIN 30 MG/0.3 ML SYRINGE SUB-Q ×2 (10:08→20:26)
[2023-08-18] MEDS: GABAPENTIN 300 MG CAPSULE PO ×3 (10:08→18:01)
[2023-08-18] MEDS: FUROSEMIDE INJ 40 MG/4 ML VIAL IV PUSH ×2 (10:08→20:22)
[2023-08-18] MEDS: FLUTICASONE PROPIONATE 0.05% NA SPR 16 GM BTL (*BKC) 1 SPRAY NASAL ×2 (10:08→20:23)
[2023-08-18] MEDS: amLODIPine BESYLATE 5 MG TABLET PO (10:08)
[2023-08-18] MEDS: ATORVASTATIN 40 MG TABLET 80 MG PO (10:09)
[2023-08-18] MEDS: ASPIRIN 81 MG CHEWABLE TABLET PO (10:09)
[2023-08-18 12:13] LABS: Glucose Point of Care 164 mg/dl (65-105)
[2023-08-18 15:49] LABS: Glucose Point of Care 171 mg/dl (65-105)
[2023-08-18] MEDS: CYCLOBENZAPRINE HCL 10 MG TABLET PO (20:21)
[2023-08-18 20:29] LABS: Glucose Point of Care 195 mg/dl (65-105)
[2023-08-18] MEDS: AZITHROMYCIN 500 MG/NS 250 ML 500 MG/250 ML BAG 250 MG IVPB (22:21)
[2023-08-19] VITALS (19 sets, daily range): BP systolic 120–142; BP diastolic 53–68; PULSE 72–107; RESP 19–28; TEMP 36.4–37.1; O2SAT 90–98
[2023-08-19 04:35] LABS: Basophils Percent Auto 0.3 % (0.2-1.2); Eosinophils Absolute Auto 0.1 K/mm3 (0-0.3); Eosinophils Percent Auto 0.7 % (0-4.4); Hematocrit 51.7 % (42.0-52.0); Hemoglobin 16.5 g/dL (14.0-18.0); Immature Granulocyte Absolute 0.04 K/mm3 (0.00-0.031); Immature Granulocyte Percent A 0.4 % (0-0.5); Lymphocytes Absolute Auto 0.67 K/mm3 (0.9-3.2); Lymphocytes Percent Auto 6.3 % (18.3-44.2); Mean Corpuscular HGB Conc 31.9 g/dl (32-36); Mean Corpuscular Hemoglobin 30.4 pg (26-34); Mean Corpuscular Volume 95.2 fl (80-100); Monocytes Absolute Auto 2.6 K/mm3 (0.1-0.6); Monocytes Percent Auto 24.1 % (2.6-8.5); Neutrophils Absolute Auto 7.3 K/mm3 (1.3-6.7); Neutrophils Percent Auto 68.2 % (45.5-73.1); Platelet Count Result 151 k/mm3 (150-375); Red Blood Count 5.43 M/mm3 (4.6-6.20); Red Cell Distribution Width 14.9 % (11.5-14.5); White Blood Count 10.6 K/mm3 (4.5-10.0)
[2023-08-19 05:24] LABS: Anion Gap 4 mmol/L (4-12); Blood Urea Nitrogen 18 mg/dL (9-20); Calcium 8.3 mg/dL (8.4-10.2); Carbon Dioxide 39 mmol/L (22-30); Chloride 93 mmol/L (98-107); Estimated CRCL calculation 123 ml/min; Estimated Glomerular Filt Rate > 60; Glucose 187 mg/dL (65-110); Potassium 3.3 mmol/L (3.4-5.0); Sodium 136 mmol/L (137-145)
[2023-08-19 07:47] LABS: Glucose Point of Care 223 mg/dl (65-105)
[2023-08-19 08:22] LABS: NT Pro B Type Natriuretic Pept 641 pg/mL (19.9-100)
[2023-08-19] MEDS: amLODIPine BESYLATE 5 MG TABLET PO (08:25)
[2023-08-19] MEDS: METOPROLOL TARTRATE 50 MG TAB PO ×2 (08:25→21:00)
[2023-08-19] MEDS: ENOXAPARIN 30 MG/0.3 ML SYRINGE SUB-Q ×2 (08:25→20:58)
[2023-08-19] MEDS: FUROSEMIDE INJ 40 MG/4 ML VIAL IV PUSH (08:25)
[2023-08-19] MEDS: ASPIRIN 81 MG CHEWABLE TABLET PO (08:25)
[2023-08-19] MEDS: ATORVASTATIN 40 MG TABLET 80 MG PO (08:25)
[2023-08-19] MEDS: GABAPENTIN 300 MG CAPSULE PO ×3 (08:25→16:29)
[2023-08-19] MEDS: INSULIN ASPART (*BKC) 100 UNITS/ML SUB-Q (08:26)
[2023-08-19] MEDS: HYDROcodone/acetaminophen (*CRX) 10-325 MG TABLET 1 TAB PO ×2 (09:20→20:59)
--- NOTE | 2023-08-19 09:25 | PM.IMPN ---
Progress Note: A&P Assessment and Plan (1) Obesity hypoventilation syndrome: Code(s): E66.2 - Morbid (severe) obesity with alveolar hypoventilation Status: Acute (2) Diabetes mellitus: Code(s): E11.9 - Type 2 diabetes mellitus without complications Status: Acute (3) Elevated troponin: Code(s): R79.89 - Other specified abnormal findings of blood chemistry Status: Acute (4) NILDA (acute kidney injury): Code(s): N17.9 - Acute kidney failure, unspecified Status: Acute (5) Lung infiltrate: Code(s): R91.8 - Other nonspecific abnormal finding of lung field Status: Acute (6) Lactic acidosis: Code(s): E87.20 - Acidosis, unspecified Status: Acute (7) Morbid obesity with BMI of 45.0-49.9, adult: Code(s): E66.01 - Morbid (severe) obesity due to excess calories; Z68.42 - Body mass index [BMI] 45.0-49.9, adult Status: Acute (8) Acute hypercapnic respiratory failure: Code(s): J96.02 - Acute respiratory failure with hypercapnia Status: Acute Plan (1) Acute hypercapnic respiratory failure: ?Code(s): J96.02 - Acute respiratory failure with hypercapnia ?Status:?Acute ?Assessment and Plan: Admit to IMU under full inpatient status Patient weaned off from continuous BiPAP ...? Now on high flow oxygen to be weaned off as tolerated keeping O2 sats around 94% Serial ABGs show slow improvement Pulmonary consult and recommendations reviewed, appreciated and agreed with (2) Lung infiltrate: ?Code(s): R91.8 - Other nonspecific abnormal finding of lung field ?Status:?Acute ?Assessment and Plan: ?patient started on antibiotics in the form of IV Rocephin and Zithromax ?cultures in progress ?Follow-up closely with Pulmonary, vertical borer considers less likely infection, discontinue antibiotics (3) Congestive heart failure: ?Code(s): I50.9 - Heart failure, unspecified ?Status:?Acute ?Assessment and Plan: Continue with IV diuresis Daily intake and output Cardiology consult patient still has a significant fluid overload, will increase his Lasix from 40 mg b.i.d. to 60 mg b.i.d., and Bumex 1 mg once and daily follow-up input output (4) Morbid obesity with BMI of 45.0-49.9, adult: ?Code(s): E66.01 - Morbid (severe) obesity due to excess calories; Z68.42 - Body mass index [BMI] 45.0-49.9, adult ?Status:?Acute ?Assessment and Plan: ?lifestyle and diet modifications (5) Lactic acidosis: ?Code(s): E87.20 - Acidosis, unspecified ?Status:?Acute ?Assessment and Plan: ?will hold metformin ?likely multifactorial Lactic acidosis Downtrending 5.5 > 2.1 > 1.3 ...? Resolved (6) NILDA (acute kidney injury): ?Code(s): N17.9 - Acute kidney failure, unspecified ?Status:?Acute ?Assessment and Plan: ?will hold meloxicam ?daily intake and output ?renal ultrasound shows normal kidneys with The renal functions are slowly improving and currently stable (7) Diabetes mellitus: ?Code(s): E11.9 - Type 2 diabetes mellitus without complications ?Status:?Acute ?Assessment and Plan: Continue diabetic meds Hold metformin Accu-Cheks qAC and qHS ordered with low-dose insulin coverage as per protocol (8) Elevated troponin: ?Code(s): R79.89 - Other specified abnormal findings of blood chemistry ?Status:?Acute ?Assessment and Plan: Patient has elevated troponins secondary to likely myocardial demand ischemia versus NSTEMI Troponin peaked at 2.090, now slowly downtrending 2D echo ordered which showed preserved left ventricular function with EF 60-65 % Patient has the mild concentric increased left ventricular wall thickness consistent with LVH Continue with beta-randy and cardiac meds as per cardiology Cardiology evaluated the patient and want to monitor him closely He is not a candidate for aggressive workup and intervention given his obesity-hypove
[2023-08-19 10:14] LABS: Alveolar/Arterial O2 Gradient 340.4 mmHg; Base Excess ABG 12.3 mEq/l (+/-2.0); HCO3 ABG 38.3 mEq/l (22.0-26.0); Oxygen Content ABG 23.6 %vol (16.0-22.0); Oxygen Saturation ABG 94.3 % (95.0-100.0); Oxyhemoglobin 93.4 % THb (90.0-100.0); PCO2 ABG 51.8 mmHg (35.0-45.0); PO2 ABG 66.7 mmHg (80.0-100.0); PO2 FiO2 Ratio Arterial Blood 1.03 %; pH ABG 7.487 (7.350-7.450)
[2023-08-19 10:15] LABS: Device HIGH FLOW NASAL CANN; Fractional Inspired Oxygen 60 %; Modified Allen's Test Pass; Site Drawn RIGHT RADIAL
[2023-08-19 11:31] LABS: Glucose Point of Care 148 mg/dl (65-105)
--- NOTE | 2023-08-19 11:38 | PM.PNPUL ---
Progress Note: A&P Assessment and Plan (1) Obesity hypoventilation syndrome: Code(s): E66.2 - Morbid (severe) obesity with alveolar hypoventilation Status: Acute Assessment and Plan: A 62-year-old male with a medical history of severe obesity and chronic lower limb edema has been suffering from progressively worsening shortness of breath spanning several weeks. Upon his admission, he was diagnosed with acute on chronic hypercapnic respiratory failure and metabolic acidosis, caused by high lactic acid levels. He has responded positively to noninvasive ventilatory support via BiPAP, although his pCO2 levels remain elevated according to the most recent ABG test. His respiratory status has been slowly improving with the aid of BiPAP and diuretics. A chest CT scan has shown predominantly atelectatic changes in the bases of his lungs, more notably on the right side. TSH 0.95 on 08/16/2023. Free T4 1.92 on 08/16/2023. 08/16/23: The treatment plan includes the continuation of BiPAP support at night, moving from the bed to a chair, and the addition of incentive spirometry. Considering the patient's clinical history and current symptoms, the case suggests a diagnosis of obesity hypoventilation syndrome. This syndrome refers to the combination of obesity and hypoventilation, which can lead to hypercapnia. To manage this condition, the use of a home ventilator with AVAPS mode seems appropriate. This mode of treatment differs from the traditional use of BiPAP support as it provides consistent ventilatory support adapted to the patient's needs, enhancing CO2 elimination, improving the symptoms and quality of life, and decreasing rate of hospitalizations associated with obesity hypoventilation syndrome. noninvasive ventilation order form was placed through via [employer]. Rate auto, target tidal volume 550, EPAP minimum 5, EPAP maximum 18, pressure support minimum 12, pressure support maximum 25. 08/19/23: patient has been on BiPAP last night and said that he wore it for about 4 hours and then woke up anxious. I switched him to an AVAPS mode setting and he said this was more comfortable. Currently the patient is on 10 L nasal cannula saturations 95%. Plan: I will change the patient to hospital AVAPS with a rate of 20, tidal volume 550, EPAP 5, minimal inspiratory pressure 12, maximal inspiratory pressure 25 and 44% FiO2. I will check an ABG prior to removal in the morning and an overnight oximetry. I have spoken with the loan coordinator and per [facility] and they can set up his home machine the night prior to his discharge. Will discuss with the hospitalist team and once we have a discharge date will implement this plan. Discussed with Dr. Pang, Will follow with you. (2) Congestive heart failure: Code(s): I50.9 - Heart failure, unspecified Status: Acute Assessment and Plan: 08/19/23: Creatinine 0.8, white blood cell count 10.6, net diuresis since admission is 6.7 L on Lasix 40 L b.i.d.. BNP has improved from 5670 to 641 today. his weight today is 151.6 kg with an admission weight of 157.8 kg. plan: agree with as aggressive diuresis as tolerated by his cardiac and renal systems per the hospitalist team (3) Lung infiltrate: Code(s): R91.8 - Other nonspecific abnormal finding of lung field Status: Acute Assessment and Plan: 08/19/23: Patient was initially treated for community-acquired pneumonia with ceftriaxone and azithromycin started on 08/14/2023. He has no evidence of a focal infiltrate and has bibasilar dependent atelectasis. Plan: Today is day 6 of antibiotics and I will discontinue his antibiotics. Subjective Date/time seen: 08/19/23 11:38 Interval history: 08/14 New pulmonary consult A 62-year-old male presented with escalating shortness of breath and increasing lower extremity edema over several weeks. He reported experiencing breathlessness during activities, which bega
[2023-08-19] MEDS: BUMETANIDE INJ 1 MG/4 ML VIAL IV PUSH (16:29)
[2023-08-19 16:34] LABS: Glucose Point of Care 135 mg/dl (65-105)
[2023-08-19 19:22] LABS: T3 Free 2.6
[2023-08-19 20:43] LABS: Glucose Point of Care 188 mg/dl (65-105)
[2023-08-19] MEDS: FUROSEMIDE INJ 40 MG/4 ML VIAL 60 MG IV PUSH (20:55)
[2023-08-19] MEDS: CYCLOBENZAPRINE HCL 10 MG TABLET PO (21:00)
[2023-08-19] MEDS: FLUTICASONE PROPIONATE 0.05% NA SPR 16 GM BTL (*BKC) 1 SPRAY NASAL (21:23)
[2023-08-20] VITALS (21 sets, daily range): BP systolic 105–144; BP diastolic 48–79; PULSE 72–97; RESP 12–26; TEMP 36.4–36.7; O2SAT 88–100
[2023-08-20 05:07] LABS: Basophils Percent Auto 0.4 % (0.2-1.2); Eosinophils Absolute Auto 0.2 K/mm3 (0-0.3); Hematocrit 55.4 % (42.0-52.0); Hemoglobin 17.4 g/dL (14.0-18.0); Immature Granulocyte Absolute 0.04 K/mm3 (0.00-0.031); Immature Granulocyte Percent A 0.4 % (0-0.5); Lymphocytes Percent Auto 8.3 % (18.3-44.2); Mean Corpuscular HGB Conc 31.4 g/dl (32-36); Mean Corpuscular Hemoglobin 30.5 pg (26-34); Mean Platelet Volume 10.8 fl (7.4-10.4); Monocytes Absolute Auto 2.1 K/mm3 (0.1-0.6); Monocytes Percent Auto 21.3 % (2.6-8.5); Neutrophils Absolute Auto 6.5 K/mm3 (1.3-6.7); Neutrophils Percent Auto 67.6 % (45.5-73.1); Platelet Count Result 162 k/mm3 (150-375); Red Blood Count 5.71 M/mm3 (4.6-6.20); Red Cell Distribution Width 14.8 % (11.5-14.5); White Blood Count 9.7 K/mm3 (4.5-10.0)
[2023-08-20 05:24] LABS: Blood Urea Nitrogen 20 mg/dL (9-20); Calcium 8.6 mg/dL (8.4-10.2); Carbon Dioxide > 40 mmol/L (22-30); Chloride 90 mmol/L (98-107); Estimated CRCL calculation 123 ml/min; Estimated Glomerular Filt Rate > 60; Glucose 163 mg/dL (65-110); Potassium 3.1 mmol/L (3.4-5.0); Sodium 137 mmol/L (137-145)
[2023-08-20 08:01] LABS: Glucose Point of Care 181 mg/dl (65-105)
--- NOTE | 2023-08-20 08:46 | PM.IMPN ---
Progress Note: A&P Assessment and Plan (1) Obesity hypoventilation syndrome: Code(s): E66.2 - Morbid (severe) obesity with alveolar hypoventilation Status: Acute (2) Diabetes mellitus: Code(s): E11.9 - Type 2 diabetes mellitus without complications Status: Acute (3) Elevated troponin: Code(s): R79.89 - Other specified abnormal findings of blood chemistry Status: Acute (4) NILDA (acute kidney injury): Code(s): N17.9 - Acute kidney failure, unspecified Status: Acute (5) Lung infiltrate: Code(s): R91.8 - Other nonspecific abnormal finding of lung field Status: Acute (6) Lactic acidosis: Code(s): E87.20 - Acidosis, unspecified Status: Acute (7) Morbid obesity with BMI of 45.0-49.9, adult: Code(s): E66.01 - Morbid (severe) obesity due to excess calories; Z68.42 - Body mass index [BMI] 45.0-49.9, adult Status: Acute (8) Acute hypercapnic respiratory failure: Code(s): J96.02 - Acute respiratory failure with hypercapnia Status: Acute Plan (1) Acute hypercapnic respiratory failure: ?Code(s): J96.02 - Acute respiratory failure with hypercapnia ?Status:?Acute ?Assessment and Plan: Admit to IMU under full inpatient status Patient weaned off from continuous BiPAP ...? Now on high flow oxygen to be weaned off as tolerated keeping O2 sats around 94% Serial ABGs show slow improvement Pulmonary consult and recommendations reviewed, appreciated and agreed with (2) Lung infiltrate: ?Code(s): R91.8 - Other nonspecific abnormal finding of lung field ?Status:?Acute ?Assessment and Plan: ?patient started on antibiotics in the form of IV Rocephin and Zithromax ?cultures in progress ?Follow-up closely with Pulmonary, design engineering specialist considers less likely infection, discontinue antibiotics (3) Congestive heart failure: ?Code(s): I50.9 - Heart failure, unspecified ?Status:?Acute ?Assessment and Plan: Continue with IV diuresis Daily intake and output Cardiology consult patient still has a significant fluid overload, will increase his Lasix from 40 mg b.i.d. to 60 mg b.i.d., and Bumex 1 mg once and daily follow-up input output: -ve 4310 ml till 4 pm today c/w current treatment (4) Morbid obesity with BMI of 45.0-49.9, adult: ?Code(s): E66.01 - Morbid (severe) obesity due to excess calories; Z68.42 - Body mass index [BMI] 45.0-49.9, adult ?Status:?Acute ?Assessment and Plan: ?lifestyle and diet modifications (5) Lactic acidosis: ?Code(s): E87.20 - Acidosis, unspecified ?Status:?Acute ?Assessment and Plan: ?will hold metformin ?likely multifactorial Lactic acidosis Downtrending 5.5 > 2.1 > 1.3 ...? Resolved (6) NILDA (acute kidney injury): ?Code(s): N17.9 - Acute kidney failure, unspecified ?Status:?Acute ?Assessment and Plan: ?will hold meloxicam ?daily intake and output ?renal ultrasound shows normal kidneys with The renal functions are slowly improving and currently stable (7) Diabetes mellitus: ?Code(s): E11.9 - Type 2 diabetes mellitus without complications ?Status:?Acute ?Assessment and Plan: Continue diabetic meds Hold metformin Accu-Cheks qAC and qHS ordered with low-dose insulin coverage as per protocol (8) Elevated troponin: ?Code(s): R79.89 - Other specified abnormal findings of blood chemistry ?Status:?Acute ?Assessment and Plan: Patient has elevated troponins secondary to likely myocardial demand ischemia versus NSTEMI Troponin peaked at 2.090, now slowly downtrending 2D echo ordered which showed preserved left ventricular function with EF 60-65 % Patient has the mild concentric increased left ventricular wall thickness consistent with LVH Continue with beta-randy and cardiac meds as per cardiology Cardiology evaluated the patient and want to monitor him closely He is not a candidate for aggre
[2023-08-20] MEDS: ASPIRIN 81 MG CHEWABLE TABLET PO (08:57)
[2023-08-20] MEDS: METOPROLOL TARTRATE 50 MG TAB PO ×2 (08:58→20:58)
[2023-08-20] MEDS: GABAPENTIN 300 MG CAPSULE PO ×3 (08:58→16:38)
[2023-08-20] MEDS: amLODIPine BESYLATE 5 MG TABLET PO (08:58)
[2023-08-20] MEDS: POTASSIUM CHLORIDE 20 MEQ PACKET (FOR LIQUID) 40 MEQ PO (08:58)
[2023-08-20] MEDS: BUMETANIDE INJ 1 MG/4 ML VIAL IV PUSH (08:59)
[2023-08-20] MEDS: ATORVASTATIN 40 MG TABLET 80 MG PO (08:59)
[2023-08-20] MEDS: FUROSEMIDE INJ 40 MG/4 ML VIAL 60 MG IV PUSH ×2 (08:59→20:58)
[2023-08-20] MEDS: FLUTICASONE PROPIONATE 0.05% NA SPR 16 GM BTL (*BKC) 1 SPRAY NASAL ×2 (09:00→20:58)
[2023-08-20] MEDS: ENOXAPARIN 30 MG/0.3 ML SYRINGE SUB-Q ×2 (09:00→20:58)
[2023-08-20] MEDS: HYDROcodone/acetaminophen (*CRX) 10-325 MG TABLET 1 TAB PO ×3 (10:20→22:11)
[2023-08-20 12:04] LABS: Glucose Point of Care 245 mg/dl (65-105)
[2023-08-20] MEDS: LORATADINE 10 MG TABLET PO (12:08)
[2023-08-20] MEDS: INSULIN ASPART (*BKC) 100 UNITS/ML SUB-Q ×2 (12:08→20:59)
--- NOTE | 2023-08-20 13:54 | PC.NURSE ---
pt's oxygen level was at 80%, pt on 5L of oxygen, placed pt on bipap, oxygen level increased to 91%.
--- NOTE | 2023-08-20 14:39 | PCPTNOTE ---
Attempted to see patyient for PT, however patient was getting set up with [facility] and reported it will be 20 minutes. Patient unable to be seen at this time.
--- NOTE | 2023-08-20 16:02 | PM.PNPUL ---
Progress Note: A&P Assessment and Plan (1) Obesity hypoventilation syndrome: Code(s): E66.2 - Morbid (severe) obesity with alveolar hypoventilation Status: Acute Assessment and Plan: A 62-year-old male with a medical history of severe obesity and chronic lower limb edema has been suffering from progressively worsening shortness of breath spanning several weeks. Upon his admission, he was diagnosed with acute on chronic hypercapnic respiratory failure and metabolic acidosis, caused by high lactic acid levels. He has responded positively to noninvasive ventilatory support via BiPAP, although his pCO2 levels remain elevated according to the most recent ABG test. His respiratory status has been slowly improving with the aid of BiPAP and diuretics. A chest CT scan has shown predominantly atelectatic changes in the bases of his lungs, more notably on the right side. TSH 0.95 on 08/16/2023. Free T4 1.92 on 08/16/2023. 08/16/23: The treatment plan includes the continuation of BiPAP support at night, moving from the bed to a chair, and the addition of incentive spirometry. Considering the patient's clinical history and current symptoms, the case suggests a diagnosis of obesity hypoventilation syndrome. This syndrome refers to the combination of obesity and hypoventilation, which can lead to hypercapnia. To manage this condition, the use of a home ventilator with AVAPS mode seems appropriate. This mode of treatment differs from the traditional use of BiPAP support as it provides consistent ventilatory support adapted to the patient's needs, enhancing CO2 elimination, improving the symptoms and quality of life, and decreasing rate of hospitalizations associated with obesity hypoventilation syndrome. noninvasive ventilation order form was placed through via [employer]. Rate auto, target tidal volume 550, EPAP minimum 5, EPAP maximum 18, pressure support minimum 12, pressure support maximum 25. 08/19/23: patient has been on BiPAP last night and said that he wore it for about 4 hours and then woke up anxious. I switched him to an AVAPS mode setting and he said this was more comfortable. Currently the patient is on 10 L nasal cannula saturations 95%. Plan: I will change the patient to hospital AVAPS with a rate of 20, tidal volume 550, EPAP 5, minimal inspiratory pressure 12, maximal inspiratory pressure 25 and 44% FiO2. I will check an ABG prior to removal in the morning and an overnight oximetry. I have spoken with the digital marketing coordinator and per Kirsten and they can set up his home machine the night prior to his discharge. Will discuss with the hospitalist team and once we have a discharge date will implement this plan. 08/20/2023: Patient wore the hospital noninvasive ventilator with the AVAPS mode last night and said he did well with this. Patient has dyspnea on exertion. Plan: Patient is scheduled to have his home noninvasive ventilator set up in the hospital today with the above-mentioned settings with 6 L bleed in. Will obtain ABG prior to removal an overnight oximetry on these settings to assess oxygenation. Is oxygenation in ABG are acceptable on 08/21/2023 would be stable from discharge from a pulmonary perspective. Discussed with Dr. Pang, Will follow with you. (2) Congestive heart failure: Code(s): I50.9 - Heart failure, unspecified Status: Acute Assessment and Plan: 08/19/23: Creatinine 0.8, white blood cell count 10.6, net diuresis since admission is 6.7 L on Lasix 40 L b.i.d.. BNP has improved from 5670 to 641 today. his weight today is 151.6 kg with an admission weight of 157.8 kg. plan: agree with as aggressive diuresis as tolerated by his cardiac and renal systems per the hospitalist team. 08/20/23:Bumex was added and his Lasix was increased per the hospitalist team and he diuresed 2.7 L yesterday and cumulative diuresis since admission is 10 L. he still has anasarca. Plan: As ag
[2023-08-20] MEDS: POTASSIUM CHLORIDE 20 MEQ PACKET (FOR LIQUID) PO (16:38)
[2023-08-20 16:39] LABS: Glucose Point of Care 160 mg/dl (65-105)
[2023-08-20 20:44] LABS: Glucose Point of Care 245 mg/dl (65-105)
[2023-08-20] MEDS: CYCLOBENZAPRINE HCL 10 MG TABLET PO (20:58)
[2023-08-21] VITALS (25 sets, daily range): BP systolic 105–146; BP diastolic 51–90; PULSE 72–95; RESP 12–24; TEMP 36.4–36.9; O2SAT 88–95
[2023-08-21 04:53] LABS: Alveolar/Arterial O2 Gradient 202.1 mmHg; Base Excess ABG 14.3 mEq/l (+/-2.0); Fractional Inspired Oxygen 45 %; HCO3 ABG 40.6 mEq/l (22.0-26.0); Oxygen Content ABG 22.2 %vol (16.0-22.0); Oxygen Saturation ABG 90.4 % (95.0-100.0); Oxyhemoglobin 88.9 % THb (90.0-100.0); PCO2 ABG 53.2 mmHg (35.0-45.0); PO2 ABG 54.6 mmHg (80.0-100.0); PO2 FiO2 Ratio Arterial Blood 1.23 %; Total Hemoglobin 17.8 g/dL (12.0-18.0)
[2023-08-21 04:54] LABS: Device OTHER DEVICE; Modified Allen's Test Pass; Site Drawn RIGHT RADIAL
[2023-08-21 04:55] LABS: Liters per Minute 6.5 LPM
[2023-08-21 07:42] LABS: Glucose Point of Care 175 mg/dl (65-105)
--- NOTE | 2023-08-21 08:34 | P.PNIM_ITS ---
Progress Note: A&P Assessment and Plan (1) Obesity hypoventilation syndrome: Code(s): E66.2 - Morbid (severe) obesity with alveolar hypoventilation Status: Acute (2) Diabetes mellitus: Code(s): E11.9 - Type 2 diabetes mellitus without complications Status: Acute (3) Elevated troponin: Code(s): R79.89 - Other specified abnormal findings of blood chemistry Status: Acute (4) NILDA (acute kidney injury): Code(s): N17.9 - Acute kidney failure, unspecified Status: Acute (5) Lung infiltrate: Code(s): R91.8 - Other nonspecific abnormal finding of lung field Status: Acute (6) Lactic acidosis: Code(s): E87.20 - Acidosis, unspecified Status: Acute (7) Morbid obesity with BMI of 45.0-49.9, adult: Code(s): E66.01 - Morbid (severe) obesity due to excess calories; Z68.42 - Body mass index [BMI] 45.0-49.9, adult Status: Acute (8) Acute hypercapnic respiratory failure: Code(s): J96.02 - Acute respiratory failure with hypercapnia Status: Acute Plan (1) Acute hypercapnic respiratory failure: ?Code(s): J96.02 - Acute respiratory failure with hypercapnia ?Status:?Acute ?Assessment and Plan: Admit to IMU under full inpatient status Patient weaned off from continuous BiPAP ...? Now on high flow oxygen to be weaned off as tolerated keeping O2 sats around 94% Serial ABGs show slow improvement Pulmonary consult and recommendations reviewed, appreciated and agreed with (2) Lung infiltrate: ?Code(s): R91.8 - Other nonspecific abnormal finding of lung field ?Status:?Acute ?Assessment and Plan: ?patient started on antibiotics in the form of IV Rocephin and Zithromax ?cultures in progress ?Follow-up closely with Pulmonary, endoscopy support specialist considers less likely infection, discontinue antibiotics (3) Congestive heart failure: ?Code(s): I50.9 - Heart failure, unspecified ?Status:?Acute ?Assessment and Plan: Continue with IV diuresis Daily intake and output Cardiology consult patient still has a significant fluid overload, will increase his Lasix from 40 mg b.i.d. to 60 mg b.i.d., and Bumex 1 mg once and daily follow-up input output: -ve 4540 ml till today c/w current treatment (4) Morbid obesity with BMI of 45.0-49.9, adult: ?Code(s): E66.01 - Morbid (severe) obesity due to excess calories; Z68.42 - Body mass index [BMI] 45.0-49.9, adult ?Status:?Acute ?Assessment and Plan: ?lifestyle and diet modifications (5) Lactic acidosis: ?Code(s): E87.20 - Acidosis, unspecified ?Status:?Acute ?Assessment and Plan: ?will hold metformin ?likely multifactorial Lactic acidosis Downtrending 5.5 > 2.1 > 1.3 ...? Resolved (6) NILDA (acute kidney injury): ?Code(s): N17.9 - Acute kidney failure, unspecified ?Status:?Acute ?Assessment and Plan: ?will hold meloxicam ?daily intake and output ?renal ultrasound shows normal kidneys with The renal functions are slowly improving and currently stable (7) Diabetes mellitus: ?Code(s): E11.9 - Type 2 diabetes mellitus without complications ?Status:?Acute ?Assessment and Plan: Continue diabetic meds Hold metformin Accu-Cheks qAC and qHS ordered with low-dose insulin coverage as per protocol (8) Elevated troponin: ?Code(s): R79.89 - Other specified abnormal findings of blood chemistry ?Status:?Acute ?Assessment and Plan: Patient has elevated t
[2023-08-21 09:07] LABS: Basophils Percent Auto 0.2 % (0.2-1.2); Eosinophils Absolute Auto 0.2 K/mm3 (0-0.3); Eosinophils Percent Auto 2.8 % (0-4.4); Hematocrit 52.2 % (42.0-52.0); Hemoglobin 16.4 g/dL (14.0-18.0); Immature Granulocyte Absolute 0.02 K/mm3 (0.00-0.031); Immature Granulocyte Percent A 0.2 % (0-0.5); Lymphocytes Absolute Auto 0.66 K/mm3 (0.9-3.2); Lymphocytes Percent Auto 7.7 % (18.3-44.2); Mean Corpuscular HGB Conc 31.4 g/dl (32-36); Mean Corpuscular Hemoglobin 29.9 pg (26-34); Mean Corpuscular Volume 95.3 fl (80-100); Mean Platelet Volume 10.8 fl (7.4-10.4); Monocytes Absolute Auto 1.6 K/mm3 (0.1-0.6); Monocytes Percent Auto 18.3 % (2.6-8.5); Neutrophils Percent Auto 70.8 % (45.5-73.1); Platelet Count Result 186 k/mm3 (150-375); Red Blood Count 5.48 M/mm3 (4.6-6.20); Red Cell Distribution Width 14.5 % (11.5-14.5); White Blood Count 8.5 K/mm3 (4.5-10.0)
[2023-08-21] MEDS: LORATADINE 10 MG TABLET PO (09:14)
[2023-08-21] MEDS: ASPIRIN 81 MG CHEWABLE TABLET PO (09:14)
[2023-08-21] MEDS: ATORVASTATIN 40 MG TABLET 80 MG PO (09:14)
[2023-08-21] MEDS: HYDROcodone/acetaminophen (*CRX) 10-325 MG TABLET 1 TAB PO ×2 (09:14→20:48)
[2023-08-21] MEDS: FUROSEMIDE INJ 40 MG/4 ML VIAL 60 MG IV PUSH ×2 (09:18→20:49)
[2023-08-21] MEDS: FLUTICASONE PROPIONATE 0.05% NA SPR 16 GM BTL (*BKC) 1 SPRAY NASAL ×2 (09:24→21:00)
[2023-08-21] MEDS: BUMETANIDE INJ 1 MG/4 ML VIAL IV PUSH (09:25)
[2023-08-21] MEDS: ENOXAPARIN 30 MG/0.3 ML SYRINGE SUB-Q ×2 (09:25→20:49)
[2023-08-21] MEDS: METOPROLOL TARTRATE 50 MG TAB PO ×2 (09:25→20:48)
[2023-08-21] MEDS: amLODIPine BESYLATE 5 MG TABLET PO (09:25)
[2023-08-21] MEDS: GABAPENTIN 300 MG CAPSULE PO ×3 (09:25→17:29)
[2023-08-21] MEDS: POTASSIUM CHLORIDE 20 MEQ PACKET (FOR LIQUID) PO (09:26)
[2023-08-21 09:30] LABS: Blood Urea Nitrogen 23 mg/dL (9-20); Calcium 8.4 mg/dL (8.4-10.2); Carbon Dioxide > 40 mmol/L (22-30); Chloride 88 mmol/L (98-107); Estimated CRCL calculation 98 ml/min; Estimated Glomerular Filt Rate > 60; Glucose 266 mg/dL (65-110); Magnesium 1.9 mg/dL (1.6-2.3); Phosphorus 2.8 mg/dL (2.5-4.5); Potassium 3.3 mmol/L (3.4-5.0); Sodium 135 mmol/L (137-145)
--- NOTE | 2023-08-21 09:39 | PM.PNPUL ---
Progress Note: A&P Assessment and Plan (1) Obesity hypoventilation syndrome: Code(s): E66.2 - Morbid (severe) obesity with alveolar hypoventilation Status: Acute Assessment and Plan: A 62-year-old male with a medical history of severe obesity and chronic lower limb edema has been suffering from progressively worsening shortness of breath spanning several weeks. Upon his admission, he was diagnosed with acute on chronic hypercapnic respiratory failure and metabolic acidosis, caused by high lactic acid levels. He has responded positively to noninvasive ventilatory support via BiPAP, although his pCO2 levels remain elevated according to the most recent ABG test. His respiratory status has been slowly improving with the aid of BiPAP and diuretics. A chest CT scan has shown predominantly atelectatic changes in the bases of his lungs, more notably on the right side. TSH 0.95 on 08/16/2023. Free T4 1.92 on 08/16/2023. 08/16/23: The treatment plan includes the continuation of BiPAP support at night, moving from the bed to a chair, and the addition of incentive spirometry. Considering the patient's clinical history and current symptoms, the case suggests a diagnosis of obesity hypoventilation syndrome. This syndrome refers to the combination of obesity and hypoventilation, which can lead to hypercapnia. To manage this condition, the use of a home ventilator with AVAPS mode seems appropriate. This mode of treatment differs from the traditional use of BiPAP support as it provides consistent ventilatory support adapted to the patient's needs, enhancing CO2 elimination, improving the symptoms and quality of life, and decreasing rate of hospitalizations associated with obesity hypoventilation syndrome. noninvasive ventilation order form was placed through via [employer]. Rate auto, target tidal volume 550, EPAP minimum 5, EPAP maximum 18, pressure support minimum 12, pressure support maximum 25. 08/19/23: patient has been on BiPAP last night and said that he wore it for about 4 hours and then woke up anxious. I switched him to an AVAPS mode setting and he said this was more comfortable. Currently the patient is on 10 L nasal cannula saturations 95%. Plan: I will change the patient to hospital AVAPS with a rate of 20, tidal volume 550, EPAP 5, minimal inspiratory pressure 12, maximal inspiratory pressure 25 and 44% FiO2. I will check an ABG prior to removal in the morning and an overnight oximetry. I have spoken with the customer supply coordinator and per Kirsten and they can set up his home machine the night prior to his discharge. Will discuss with the hospitalist team and once we have a discharge date will implement this plan. 08/20/2023: Patient wore the hospital noninvasive ventilator with the AVAPS mode last night and said he did well with this. Patient has dyspnea on exertion. Plan: Patient is scheduled to have his home noninvasive ventilator set up in the hospital today with the above-mentioned settings with 6 L bleed in. Will obtain ABG prior to removal an overnight oximetry on these settings to assess oxygenation. Is oxygenation in ABG are acceptable on 08/21/2023 would be stable from discharge from a pulmonary perspective. Later in the day his [employer] via [employer] set up his home noninvasive ventilator with AVAPS AE with a rate of auto, tidal volume 550, EPAP minimum 5, EPAP maximum 18, pressure support minimum 12, pressure support maximum 25. 08/21/23 patient wore his home noninvasive ventilator with 6 L bleed in last night and said he did well and slept well. Patient had an overnight oximetry on these settings with recording duration of 8 hours and 6 minutes. Average saturation 90%. Low saturation 83%. Time with saturation less than or equal to 88% was 110 minutes and his oxygen desaturation index was 5.1. ABG prior to removal was 7.50/53/55. He still complains of sinus congestion on Flonase 1 spray each nostril twice
--- NOTE | 2023-08-21 09:48 | PCNWS ---
Weekly nutritional screen. Patient is tolerating current diet with adequate intake, 100% all meals on heart healthy, consistent carbs. No weight loss reported. No nutritional needs at this time.
[2023-08-21 11:50] LABS: Glucose Point of Care 314 mg/dl (65-105)
[2023-08-21] MEDS: INSULIN ASPART (*BKC) 100 UNITS/ML SUB-Q ×2 (12:11→20:49)
--- NOTE | 2023-08-21 15:00 | PCOTNOTE ---
Patient declined more therapy this date. Patient is up in the chair and content.
[2023-08-21 20:21] LABS: Glucose Point of Care 245 mg/dl (65-105)
[2023-08-21] MEDS: CYCLOBENZAPRINE HCL 10 MG TABLET PO (20:49)
[2023-08-22] VITALS (20 sets, daily range): BP systolic 112–147; BP diastolic 56–70; PULSE 71–97; RESP 16–22; TEMP 35.6–37.7; O2SAT 90–96
--- NOTE | 2023-08-22 | ECHO_ITS ---
Patient Info Name: Walter Chavez Age: 62 years : 1960 Gender: Male Ht: 70 in Wt: 324 lbs BSA: 2.77 m2 HR: 87 bpm BP: 118 / 70 mmHg Technical Quality: Poor Exam Date: 08/22/2023 10:34 AM Exam Location: Echo Lab Patient Status: Inpatient Admit Date: 08/14/2023 Staff Ordering Physician: Rasta Diaz MD [employer] Consultant: Gaetano Franco RDCS Attending Provider: Bryn Alvarez MD Referring Physician: Joe SHAY; Exam Type: CA echo limited w bubble study Study Info Indications - r/o shunt - hypoxia Complete two-dimensional, color flow and Doppler transthoracic echocardiogram is performed with agitated saline. Contrast/Agitated Saline Contrast/Ag. Saline: Agitated Saline Amount: 20.00 ml Reason for Poor Study: patient body habitus Summary 1. Negative bubble study. Atrial Septum Intact interatrial septum visualized by agitated saline imaging. Report Signatures
[2023-08-22 07:54] LABS: Glucose Point of Care 163 mg/dl (65-105)
[2023-08-22 08:01] LABS: Basophils Percent Auto 0.4 % (0.2-1.2); Eosinophils Absolute Auto 0.3 K/mm3 (0-0.3); Eosinophils Percent Auto 3.4 % (0-4.4); Hematocrit 52.5 % (42.0-52.0); Hemoglobin 16.5 g/dL (14.0-18.0); Immature Granulocyte Absolute 0.04 K/mm3 (0.00-0.031); Immature Granulocyte Percent A 0.5 % (0-0.5); Lymphocytes Absolute Auto 0.95 K/mm3 (0.9-3.2); Mean Corpuscular HGB Conc 31.4 g/dl (32-36); Mean Corpuscular Hemoglobin 30.3 pg (26-34); Mean Corpuscular Volume 96.3 fl (80-100); Mean Platelet Volume 10.8 fl (7.4-10.4); Monocytes Absolute Auto 1.4 K/mm3 (0.1-0.6); Monocytes Percent Auto 18.2 % (2.6-8.5); Neutrophils Absolute Auto 5.2 K/mm3 (1.3-6.7); Neutrophils Percent Auto 65.5 % (45.5-73.1); Platelet Count Result 217 k/mm3 (150-375); Red Blood Count 5.45 M/mm3 (4.6-6.20); Red Cell Distribution Width 14.5 % (11.5-14.5); White Blood Count 7.9 K/mm3 (4.5-10.0)
[2023-08-22 08:31] LABS: Blood Urea Nitrogen 25 mg/dL (9-20); Calcium 8.6 mg/dL (8.4-10.2); Carbon Dioxide > 40 mmol/L (22-30); Chloride 88 mmol/L (98-107); Estimated CRCL calculation 98 ml/min; Estimated Glomerular Filt Rate > 60; Glucose 182 mg/dL (65-110); Phosphorus 3.1 mg/dL (2.5-4.5); Sodium 137 mmol/L (137-145)
[2023-08-22] MEDS: HYDROcodone/acetaminophen (*CRX) 10-325 MG TABLET 1 TAB PO ×3 (08:40→18:21)
[2023-08-22] MEDS: GABAPENTIN 300 MG CAPSULE PO ×3 (08:42→18:18)
[2023-08-22] MEDS: amLODIPine BESYLATE 5 MG TABLET PO (08:42)
[2023-08-22] MEDS: METOPROLOL TARTRATE 50 MG TAB PO ×2 (08:42→21:56)
[2023-08-22] MEDS: ASPIRIN 81 MG CHEWABLE TABLET PO (08:42)
[2023-08-22] MEDS: LORATADINE 10 MG TABLET PO (08:42)
--- NOTE | 2023-08-22 08:43 | PM.IMPN ---
Progress Note: A&P Assessment and Plan (1) Obesity hypoventilation syndrome: Code(s): E66.2 - Morbid (severe) obesity with alveolar hypoventilation Status: Acute (2) Diabetes mellitus: Code(s): E11.9 - Type 2 diabetes mellitus without complications Status: Acute (3) Elevated troponin: Code(s): R79.89 - Other specified abnormal findings of blood chemistry Status: Acute (4) NILDA (acute kidney injury): Code(s): N17.9 - Acute kidney failure, unspecified Status: Acute (5) Lung infiltrate: Code(s): R91.8 - Other nonspecific abnormal finding of lung field Status: Acute (6) Lactic acidosis: Code(s): E87.20 - Acidosis, unspecified Status: Acute (7) Morbid obesity with BMI of 45.0-49.9, adult: Code(s): E66.01 - Morbid (severe) obesity due to excess calories; Z68.42 - Body mass index [BMI] 45.0-49.9, adult Status: Acute (8) Acute hypercapnic respiratory failure: Code(s): J96.02 - Acute respiratory failure with hypercapnia Status: Acute Plan (1) Acute hypercapnic respiratory failure: ?Code(s): J96.02 - Acute respiratory failure with hypercapnia ?Status:?Acute ?Assessment and Plan: Admit to IMU under full inpatient status Patient weaned off from continuous BiPAP ...? Now on high flow oxygen to be weaned off as tolerated keeping O2 sats around 94% Serial ABGs show slow improvement Pulmonary consult and recommendations reviewed, appreciated patient need a higher flow oxygen today, 8 L per minutes with nasal cannular positive D-dimer, CT of chest was ordered per electric truck crane operator (2) Lung infiltrate: ?Code(s): R91.8 - Other nonspecific abnormal finding of lung field ?Status:?Acute ?Assessment and Plan: ?patient started on antibiotics in the form of IV Rocephin and Zithromax ?cultures in progress ?Follow-up closely with Pulmonary, electric truck crane operator considers less likely infection, discontinue antibiotics (3) Congestive heart failure: ?Code(s): I50.9 - Heart failure, unspecified ?Status:?Acute ?Assessment and Plan: Continue with IV diuresis Daily intake and output Cardiology consult patient still has a significant fluid overload, patient is on 60 mg b.i.d., and Bumex 1 mg once a daily edema has improved significantly, changed to Lasix 60 mg b.i.d. p.o. follow-up input output: c/w current treatment (4) Morbid obesity with BMI of 45.0-49.9, adult: ?Code(s): E66.01 - Morbid (severe) obesity due to excess calories; Z68.42 - Body mass index [BMI] 45.0-49.9, adult ?Status:?Acute ?Assessment and Plan: ?lifestyle and diet modifications (5) Lactic acidosis: ?Code(s): E87.20 - Acidosis, unspecified ?Status:?Acute ?Assessment and Plan: ?will hold metformin ?likely multifactorial Lactic acidosis Downtrending 5.5 > 2.1 > 1.3 ...? Resolved (6) NILDA (acute kidney injury): ?Code(s): N17.9 - Acute kidney failure, unspecified ?Status:?Acute ?Assessment and Plan: ?will hold meloxicam ?daily intake and output ?renal ultrasound shows normal kidneys with The renal functions are slowly improving and currently stable (7) Diabetes mellitus: ?Code(s): E11.9 - Type 2 diabetes mellitus without complications ?Status:?Acute ?Assessment and Plan: Continue diabetic meds Hold metformin Accu-Cheks qAC and qHS ordered with low-dose insulin coverage as per protocol (8) Elevated troponin: ?Code(s): R79.89 - Other specified abnormal findings of blood chemistry ?Status:?Acute ?Assessment and Plan: Patient has elevated troponins secondary to likely myocardial demand ischemia versus NSTEMI Troponin peaked at 2.090, now slowly downtrending 2D echo ordered which showed preserved left ventricular function with EF 60-65 % Patient has the mild concentric increased left ventricular wall thickness consistent with LVH Continue with beta-block
--- NOTE | 2023-08-22 08:44 | PM.DS ---
DS: Summary Time Spent with Patient Time attestation: Total time spent providing and/or coordinating discharge services: DS: Data Data Completed and Pending Labs on day of discharge: Labs from last 24 hours 08/22/23 08/22/23 08/21/23 07:41 07:36 19:33 WBC 7.9 RBC 5.45 Hgb 16.5 Hct 52.5 H MCV 96.3 MCH 30.3 MCHC 31.4 L RDW 14.5 Plt Count 217 MPV 10.8 H Immature Gran % (Auto) 0.5 Neut % (Auto) 65.5 Lymph % (Auto) 12.0 L O'Brien % (Auto) 18.2 H Eos % (Auto) 3.4 Baso % (Auto) 0.4 Lymph # (Auto) 0.95 O'Brien # (Auto) 1.4 H Eos # (Auto) 0.3 Baso # (Auto) 0.0 Abs Immat Gran (auto) 0.04 H Absolute Neuts (auto) 5.2 Absolute Nucleated RBC 0.000 Nucleated RBC % 0.0 Sodium 137 Potassium 3.0 L Chloride 88 L Carbon Dioxide > 40 H Anion Gap BUN 25 H Creatinine 1.00 Estim Creat Clear Calc 98 Estimated GFR > 60 Glucose 182 H POC Capillary Glucose 163 H 245 H Calcium 8.6 Phosphorus 3.1 Magnesium 2.0 08/21/23 08/21/23 11:43 08:58 WBC 8.5 RBC 5.48 Hgb 16.4 Hct 52.2 H MCV 95.3 MCH 29.9 MCHC 31.4 L RDW 14.5 Plt Count 186 MPV 10.8 H Immature Gran % (Auto) 0.2 Neut % (Auto) 70.8 Lymph % (Auto) 7.7 L O'Brien % (Auto) 18.3 H Eos % (Auto) 2.8 Baso % (Auto) 0.2 Lymph # (Auto) 0.66 L O'Brien # (Auto) 1.6 H Eos # (Auto) 0.2 Baso # (Auto) 0.0 Abs Immat Gran (auto) 0.02 Absolute Neuts (auto) 6.0 Absolute Nucleated RBC 0.000 Nucleated RBC % 0.0 Sodium 135 L Potassium 3.3 L Chloride 88 L Carbon Dioxide > 40 H Anion Gap BUN 23 H Creatinine 1.00 Estim Creat Clear Calc 98 Estimated GFR > 60 Glucose 266 H POC Capillary Glucose 314 H Calcium 8.4 Phosphorus 2.8 Magnesium 1.9 Discharge Plan Discharge Consulting providers: Alejandra Brown; Tong Marshall Discharge Instructions: CHF, Respiratory Failure. Patient Instructions: Heart Failure (DC), Heart Failure (GEN) Discharge Medications: No Action cyclobenzaprine 10 mg tablet 10 mg PO HS meloxicam 15 mg tablet 15 mg PO DAILY lovastatin 40 mg tablet 40 mg PO DAILY pioglitazone 45 mg tablet 45 mg PO DAILY amlodipine 5 mg tablet 5 mg PO DAILY hydrocodone-acetaminophen 10-325 mg tablet 1 tablet PO TID PRN (Reason: Pain (Scale Score 4-6)) metformin 1,000 mg tablet 1,000 mg PO BID glimepiride 4 mg tablet 4 mg PO DAILY metoprolol tartrate 50 mg tablet 50 mg PO Q12H gabapentin 300 mg capsule 300 mg PO TID dapagliflozin propanediol [Farxiga] 10 mg tablet 10 mg PO DAILY Rx Instructions: Pt uses for medication renal failure pramipexole 0.5 mg tablet 0.5 mg PO QHS PRN (Reason: Restless Leg(S)) Date of admission: 08/14/23 21:19 Primary Care Provider: Christopher Kirk Admitting Provider: Laura Roper V. Attending physician on admission: Bryn Alvarez Condition: Stable
[2023-08-22] MEDS: ENOXAPARIN 30 MG/0.3 ML SYRINGE SUB-Q ×2 (09:51→21:56)
[2023-08-22] MEDS: ATORVASTATIN 40 MG TABLET 80 MG PO (09:53)
[2023-08-22] MEDS: POTASSIUM CHLORIDE 20 MEQ PACKET (FOR LIQUID) PO ×2 (09:54→18:18)
[2023-08-22] MEDS: POTASSIUM CHLORIDE 20 MEQ PACKET (FOR LIQUID) 40 MEQ PO (09:56)
[2023-08-22] MEDS: FLUTICASONE PROPIONATE 0.05% NA SPR 16 GM BTL (*BKC) 2 SPRAY NASAL ×2 (09:56→21:42)
--- NOTE | 2023-08-22 10:19 | PM.PNPUL ---
Progress Note: A&P Assessment and Plan (1) Obesity hypoventilation syndrome: Code(s): E66.2 - Morbid (severe) obesity with alveolar hypoventilation Status: Acute Assessment and Plan: A 62-year-old male with a medical history of severe obesity and chronic lower limb edema has been suffering from progressively worsening shortness of breath spanning several weeks. Upon his admission, he was diagnosed with acute on chronic hypercapnic respiratory failure and metabolic acidosis, caused by high lactic acid levels. He has responded positively to noninvasive ventilatory support via BiPAP, although his pCO2 levels remain elevated according to the most recent ABG test. His respiratory status has been slowly improving with the aid of BiPAP and diuretics. A chest CT scan has shown predominantly atelectatic changes in the bases of his lungs, more notably on the right side. TSH 0.95 on 08/16/2023. Free T4 1.92 on 08/16/2023. 08/16/23: The treatment plan includes the continuation of BiPAP support at night, moving from the bed to a chair, and the addition of incentive spirometry. Considering the patient's clinical history and current symptoms, the case suggests a diagnosis of obesity hypoventilation syndrome. This syndrome refers to the combination of obesity and hypoventilation, which can lead to hypercapnia. To manage this condition, the use of a home ventilator with AVAPS mode seems appropriate. This mode of treatment differs from the traditional use of BiPAP support as it provides consistent ventilatory support adapted to the patient's needs, enhancing CO2 elimination, improving the symptoms and quality of life, and decreasing rate of hospitalizations associated with obesity hypoventilation syndrome. noninvasive ventilation order form was placed through via [employer]. Rate auto, target tidal volume 550, EPAP minimum 5, EPAP maximum 18, pressure support minimum 12, pressure support maximum 25. 08/19/23: patient has been on BiPAP last night and said that he wore it for about 4 hours and then woke up anxious. I switched him to an AVAPS mode setting and he said this was more comfortable. Currently the patient is on 10 L nasal cannula saturations 95%. Plan: I will change the patient to hospital AVAPS with a rate of 20, tidal volume 550, EPAP 5, minimal inspiratory pressure 12, maximal inspiratory pressure 25 and 44% FiO2. I will check an ABG prior to removal in the morning and an overnight oximetry. I have spoken with the respiratory assistant and per Kirsten and they can set up his home machine the night prior to his discharge. Will discuss with the hospitalist team and once we have a discharge date will implement this plan. 08/20/2023: Patient wore the hospital noninvasive ventilator with the AVAPS mode last night and said he did well with this. Patient has dyspnea on exertion. Plan: Patient is scheduled to have his home noninvasive ventilator set up in the hospital today with the above-mentioned settings with 6 L bleed in. Will obtain ABG prior to removal an overnight oximetry on these settings to assess oxygenation. Is oxygenation in ABG are acceptable on 08/21/2023 would be stable from discharge from a pulmonary perspective. Later in the day his [employer] company via [employer] set up his home noninvasive ventilator with AVAPS AE with a rate of auto, tidal volume 550, EPAP minimum 5, EPAP maximum 18, pressure support minimum 12, pressure support maximum 25. 08/21/23 patient wore his home noninvasive ventilator with 6 L bleed in last night and said he did well and slept well. Patient had an overnight oximetry on these settings with recording duration of 8 hours and 6 minutes. Average saturation 90%. Low saturation 83%. Time with saturation less than or equal to 88% was 110 minutes and his oxygen desaturation index was 5.1. ABG prior to removal was 7.50/53/55. He still complains of sinus congestion on Flonase 1 spray each nostril twice
[2023-08-22] MEDS: FUROSEMIDE 40 MG TABLET PO (10:30)
[2023-08-22] MEDS: POTASSIUM CHLORIDE INJ 40 MEQ in SODIUM CHLORIDE 0.9% IV 500 ML 130 MEQ IVPB (10:40)
[2023-08-22] MEDS: INSULIN ASPART (*BKC) 100 UNITS/ML SUB-Q ×2 (13:03→21:57)
[2023-08-22 13:24] LABS: NT Pro B Type Natriuretic Pept 292 pg/mL (19.9-100)
[2023-08-22 13:27] LABS: D Dimer 1.12 ug/mL (<0.48)
[2023-08-22 13:33] LABS: Blood Urea Nitrogen 29 mg/dL (9-20); Calcium 8.6 mg/dL (8.4-10.2); Carbon Dioxide > 40 mmol/L (22-30); Chloride 88 mmol/L (98-107); Estimated CRCL calculation 98 ml/min; Estimated Glomerular Filt Rate > 60; Glucose 325 mg/dL (65-110); Potassium 3.5 mmol/L (3.4-5.0); Sodium 134 mmol/L (137-145)
[2023-08-22 14:33] LABS: Glucose Point of Care 303 mg/dl (65-105)
[2023-08-22 17:39] LABS: Glucose Point of Care 252 mg/dl (65-105)
[2023-08-22] MEDS: FUROSEMIDE 20 MG TABLET 60 MG PO (18:19)
--- NOTE | 2023-08-22 19:01 | PC.NURSE ---
This patient, aWlter Chavez, was received from [facility] on 08/22/23 at 18:48. Patient/family oriented to unit policies and routines. Patient placed in chair per their request.
[2023-08-22 21:28] LABS: Glucose Point of Care 263 mg/dl (65-105)
[2023-08-22] MEDS: CYCLOBENZAPRINE HCL 10 MG TABLET PO (21:56)
[2023-08-22] MEDS: ACETAMINOPHEN 325 MG TABLET 650 MG PO (21:56)
[2023-08-23] VITALS (13 sets, daily range): BP systolic 95–122; BP diastolic 54–80; PULSE 67–89; RESP 13–20; TEMP 36.1–36.4; O2SAT 91–100
[2023-08-23] MEDS: GABAPENTIN 300 MG CAPSULE PO ×3 (07:49→16:12)
[2023-08-23] MEDS: METOPROLOL TARTRATE 50 MG TAB PO (07:49)
[2023-08-23] MEDS: ASPIRIN 81 MG CHEWABLE TABLET PO (07:49)
[2023-08-23] MEDS: ATORVASTATIN 40 MG TABLET 80 MG PO (07:49)
[2023-08-23] MEDS: LORATADINE 10 MG TABLET PO (07:49)
[2023-08-23] MEDS: FUROSEMIDE 20 MG TABLET 60 MG PO ×2 (07:50→16:12)
[2023-08-23] MEDS: POTASSIUM CHLORIDE 20 MEQ PACKET (FOR LIQUID) PO (07:50)
[2023-08-23] MEDS: ENOXAPARIN 30 MG/0.3 ML SYRINGE SUB-Q ×2 (07:50→21:09)
[2023-08-23] MEDS: ACETAMINOPHEN 325 MG TABLET 650 MG PO (07:50)
[2023-08-23] MEDS: FLUTICASONE PROPIONATE 0.05% NA SPR 16 GM BTL (*BKC) 2 SPRAY NASAL ×2 (07:51→20:53)
[2023-08-23] MEDS: INSULIN ASPART (*BKC) 100 UNITS/ML SUB-Q ×4 (08:03→21:10)
[2023-08-23 08:05] LABS: Basophils Percent Auto 0.5 % (0.2-1.2); Eosinophils Absolute Auto 0.3 K/mm3 (0-0.3); Eosinophils Percent Auto 3.5 % (0-4.4); Hematocrit 51.1 % (42.0-52.0); Hemoglobin 16.2 g/dL (14.0-18.0); Immature Granulocyte Absolute 0.02 K/mm3 (0.00-0.031); Immature Granulocyte Percent A 0.3 % (0-0.5); Lymphocytes Absolute Auto 0.85 K/mm3 (0.9-3.2); Lymphocytes Percent Auto 10.7 % (18.3-44.2); Mean Corpuscular HGB Conc 31.7 g/dl (32-36); Mean Corpuscular Hemoglobin 30.2 pg (26-34); Mean Corpuscular Volume 95.3 fl (80-100); Mean Platelet Volume 10.4 fl (7.4-10.4); Monocytes Absolute Auto 1.5 K/mm3 (0.1-0.6); Monocytes Percent Auto 18.4 % (2.6-8.5); Neutrophils Absolute Auto 5.3 K/mm3 (1.3-6.7); Neutrophils Percent Auto 66.6 % (45.5-73.1); Platelet Count Result 230 k/mm3 (150-375); Red Blood Count 5.36 M/mm3 (4.6-6.20); Red Cell Distribution Width 14.1 % (11.5-14.5)
[2023-08-23 08:06] LABS: Glucose Point of Care 201 mg/dl (65-105)
--- NOTE | 2023-08-23 08:27 | PM.IMPN ---
Progress Note: A&P Assessment and Plan (1) Obesity hypoventilation syndrome: Code(s): E66.2 - Morbid (severe) obesity with alveolar hypoventilation Status: Acute (2) Diabetes mellitus: Code(s): E11.9 - Type 2 diabetes mellitus without complications Status: Acute (3) Elevated troponin: Code(s): R79.89 - Other specified abnormal findings of blood chemistry Status: Acute (4) NILDA (acute kidney injury): Code(s): N17.9 - Acute kidney failure, unspecified Status: Acute (5) Lung infiltrate: Code(s): R91.8 - Other nonspecific abnormal finding of lung field Status: Acute (6) Lactic acidosis: Code(s): E87.20 - Acidosis, unspecified Status: Acute (7) Morbid obesity with BMI of 45.0-49.9, adult: Code(s): E66.01 - Morbid (severe) obesity due to excess calories; Z68.42 - Body mass index [BMI] 45.0-49.9, adult Status: Acute (8) Acute hypercapnic respiratory failure: Code(s): J96.02 - Acute respiratory failure with hypercapnia Status: Acute Plan (1) Acute hypercapnic respiratory failure: ?Code(s): J96.02 - Acute respiratory failure with hypercapnia ?Status:?Acute ?Assessment and Plan: Admit to IMU under full inpatient status Patient weaned off from continuous BiPAP ...? Now on high flow oxygen to be weaned off as tolerated keeping O2 sats around 94% Serial ABGs show slow improvement Pulmonary consult and recommendations reviewed, appreciated patient need a higher flow oxygen today, 8 L per minutes with nasal cannular positive D-dimer, CT of chest was ordered per motion picture scene builder CTA chest shows no PE. But moderate atelectasis in the lungs, venous Doppler shows no DVT patient still on high-flow oxygen (2) Lung infiltrate: ?Code(s): R91.8 - Other nonspecific abnormal finding of lung field ?Status:?Acute ?Assessment and Plan: ?patient started on antibiotics in the form of IV Rocephin and Zithromax ?cultures in progress ?Follow-up closely with Pulmonary, motion picture scene builder considers less likely infection, discontinue antibiotics (3) Congestive heart failure: ?Code(s): I50.9 - Heart failure, unspecified ?Status:?Acute ?Assessment and Plan: Continue with IV diuresis Daily intake and output Cardiology consult patient still has a significant fluid overload, patient is on 60 mg b.i.d., and Bumex 1 mg once a daily edema has improved significantly, changed to Lasix 60 mg b.i.d. p.o. follow-up input output: c/w current treatment Gallstone radiologist's reports cholelithiasis. Gallbladder distention may secondary to fasting. Correlate with physical exam for evidence of acute cholecystitis. consult general surgeon for evaluation and treatment (4) Morbid obesity with BMI of 45.0-49.9, adult: ?Code(s): E66.01 - Morbid (severe) obesity due to excess calories; Z68.42 - Body mass index [BMI] 45.0-49.9, adult ?Status:?Acute ?Assessment and Plan: ?lifestyle and diet modifications (5) Lactic acidosis: ?Code(s): E87.20 - Acidosis, unspecified ?Status:?Acute ?Assessment and Plan: ?will hold metformin ?likely multifactorial Lactic acidosis Downtrending 5.5 > 2.1 > 1.3 ...? Resolved (6) NILDA (acute kidney injury): ?Code(s): N17.9 - Acute kidney failure, unspecified ?Status:?Acute ?Assessment and Plan: ?will hold meloxicam ?daily intake and output ?renal ultrasound shows normal kidneys with The renal functions are slowly improving and currently stable (7) Diabetes mellitus: ?Code(s): E11.9 - Type 2 diabetes mellitus without complications ?Status:?Acute ?Assessment and Plan: Continue diabetic meds Hold metformin Accu-Cheks qAC and qHS ordered with low-dose insulin coverage as per protocol (8) Elevated troponin: ?Code(s): R79.89 - Other specified abnormal findings of blood chemistry ?Status:?Acute ?Assessment an
[2023-08-23 08:34] LABS: Blood Urea Nitrogen 24 mg/dL (9-20); Calcium 8.5 mg/dL (8.4-10.2); Carbon Dioxide > 40 mmol/L (22-30); Chloride 90 mmol/L (98-107); Estimated CRCL calculation 108 ml/min; Estimated Glomerular Filt Rate > 60; Glucose 191 mg/dL (65-110); Magnesium 1.9 mg/dL (1.6-2.3); Phosphorus 3.1 mg/dL (2.5-4.5); Potassium 3.1 mmol/L (3.4-5.0); Sodium 135 mmol/L (137-145)
--- NOTE | 2023-08-23 10:48 | PM.PNPUL ---
Progress Note: A&P Assessment and Plan (1) Obesity hypoventilation syndrome: Code(s): E66.2 - Morbid (severe) obesity with alveolar hypoventilation Status: Acute Assessment and Plan: A 62-year-old male with a medical history of severe obesity and chronic lower limb edema has been suffering from progressively worsening shortness of breath spanning several weeks. Upon his admission, he was diagnosed with acute on chronic hypercapnic respiratory failure and metabolic acidosis, caused by high lactic acid levels. He has responded positively to noninvasive ventilatory support via BiPAP, although his pCO2 levels remain elevated according to the most recent ABG test. His respiratory status has been slowly improving with the aid of BiPAP and diuretics. A chest CT scan has shown predominantly atelectatic changes in the bases of his lungs, more notably on the right side. TSH 0.95 on 08/16/2023. Free T4 1.92 on 08/16/2023. 08/16/23: The treatment plan includes the continuation of BiPAP support at night, moving from the bed to a chair, and the addition of incentive spirometry. Considering the patient's clinical history and current symptoms, the case suggests a diagnosis of obesity hypoventilation syndrome. This syndrome refers to the combination of obesity and hypoventilation, which can lead to hypercapnia. To manage this condition, the use of a home ventilator with AVAPS mode seems appropriate. This mode of treatment differs from the traditional use of BiPAP support as it provides consistent ventilatory support adapted to the patient's needs, enhancing CO2 elimination, improving the symptoms and quality of life, and decreasing rate of hospitalizations associated with obesity hypoventilation syndrome. noninvasive ventilation order form was placed through via [employer]. Rate auto, target tidal volume 550, EPAP minimum 5, EPAP maximum 18, pressure support minimum 12, pressure support maximum 25. 08/19/23: patient has been on BiPAP last night and said that he wore it for about 4 hours and then woke up anxious. I switched him to an AVAPS mode setting and he said this was more comfortable. Currently the patient is on 10 L nasal cannula saturations 95%. Plan: I will change the patient to hospital AVAPS with a rate of 20, tidal volume 550, EPAP 5, minimal inspiratory pressure 12, maximal inspiratory pressure 25 and 44% FiO2. I will check an ABG prior to removal in the morning and an overnight oximetry. I have spoken with the web content coordinator and per Kirsten and they can set up his home machine the night prior to his discharge. Will discuss with the hospitalist team and once we have a discharge date will implement this plan. 08/20/2023: Patient wore the hospital noninvasive ventilator with the AVAPS mode last night and said he did well with this. Patient has dyspnea on exertion. Plan: Patient is scheduled to have his home noninvasive ventilator set up in the hospital today with the above-mentioned settings with 6 L bleed in. Will obtain ABG prior to removal an overnight oximetry on these settings to assess oxygenation. Is oxygenation in ABG are acceptable on 08/21/2023 would be stable from discharge from a pulmonary perspective. Later in the day his [employer] company via [employer] set up his home noninvasive ventilator with AVAPS AE with a rate of auto, tidal volume 550, EPAP minimum 5, EPAP maximum 18, pressure support minimum 12, pressure support maximum 25. 08/21/23 patient wore his home noninvasive ventilator with 6 L bleed in last night and said he did well and slept well. Patient had an overnight oximetry on these settings with recording duration of 8 hours and 6 minutes. Average saturation 90%. Low saturation 83%. Time with saturation less than or equal to 88% was 110 minutes and his oxygen desaturation index was 5.1. ABG prior to removal was 7.50/53/55. He still complains of sinus congestion on Flonase 1 spray each nostril twice
[2023-08-23 11:43] LABS: Glucose Point of Care 233 mg/dl (65-105)
--- NOTE | 2023-08-23 15:04 | PM.CNGS ---
Assessment and Plan Assessment and plan (1) Cholelithiasis: Code(s): K80.20 - Calculus of gallbladder without cholecystitis without obstruction Status: Acute Assessment and Plan: Largely asymptomatic at this time, continue low-fat diet, patient is poor surgical candidate especially currently given CHF exacerbation and respiratory failure, will see as an outpatient once medically optimized (2) Acute hypercapnic respiratory failure: Code(s): J96.02 - Acute respiratory failure with hypercapnia Status: Acute Assessment and Plan: improved, continue medical/pulmonary management (3) Congestive heart failure: Code(s): I50.9 - Heart failure, unspecified Status: Acute Assessment and Plan: improve, continue medical management (4) Morbid obesity with BMI of 45.0-49.9, adult: Code(s): E66.01 - Morbid (severe) obesity due to excess calories; Z68.42 - Body mass index [BMI] 45.0-49.9, adult Status: Acute Assessment and Plan: dietary and lifestyle modifications History of Present Illness Consult details Consult date: 08/23/23 Reason for consult: gallstones Requesting physician: Momo Pang MD Narrative: The patient is a 62-year-old male with multiple medical issues presenting to the hospital with fluid overload, CHF exacerbation, respiratory failure. The patient has been admitted to the medical service and largely stabilized this point. Recent CT of his chest revealed gallbladder distension, cholelithiasis. The patient reports he is not having any abdominal pain at this time. He reports he is somewhat bloated, however this is largely secondary to fluid overload. The patient reports he has been tolerating a diet without issue. The patient reports that he does have some mild postprandial pain with associated nausea and bloating intermittently. Review of Systems Review of Systems: All systems reviewed & are unremarkable except as noted in HPI and below PMFSH Social History Social History Smoking status: Former smoker Alcohol intake: never Substance use: never Do You Feel Safe in your Home?: Yes Lack of Transportation: No Lack of Food: Never True Current Housing: I Have Housing Concerned About Future Housing: No Difficulty Paying Gas/Electric Bills: No Difficulty Paying for Meds: No Currently Unemployed: No Education: High School Diploma/GED Difficulty w/ Childcare or Family Care: No Spiritual care concerns: No Meds Home Medications and Allergies Home Medications Medication Instructions Recorded Confirmed Type amlodipine 5 mg tablet 5 mg PO DAILY 08/14/23 08/14/23 History cyclobenzaprine 10 mg tablet 10 mg PO HS 08/14/23 08/16/23 History dapagliflozin propanediol 10 mg 10 mg PO DAILY 08/14/23 08/14/23 History tablet (Farxiga) gabapentin 300 mg capsule 300 mg PO TID 08/14/23 08/14/23 History glimepiride 4 mg tablet 4 mg PO DAILY 08/14/23 08/14/23 History hydrocodone 10 mg-acetaminophen 1 tablet PO TID PRN Pain (Scale 08/14/23 08/14/23 History 325 mg tablet Score 4-6) lovastatin 40 mg tablet 40 mg PO DAILY 08/14/23 08/14/23 History meloxicam 15 mg tablet 15 mg PO DAILY 08/14/23 08/14/23 History metformin 1,000 mg tablet 1,000 mg PO BID 08/14/23 08/14/23 History metoprolol tartrate 50 mg tablet 50 mg PO Q12H 08/14/23 08/14/23 History pioglitazone 45 mg tablet 45 mg PO DAILY 08/14/23 08/14/23 History pramipexole 0.5 mg tablet 0.5 mg PO QHS PRN Restless Leg(S) 08/15/23 08/15/23 History Allergies Allergy/AdvReac Type Severity Reaction Status Date / Time No Known Allergies Allergy Verified 08/14/23 20:05 Vital Signs Vital Signs - 24 hr 08/22/23 15:42 08/22/23 16:00 08/22/23 18:00 Temperature 35.9 C L Pulse Rate 82 90 87 Respiratory Rate 22 H Blood Pressure 147/64 H Pulse Oximetry 95 Oxygen Delivery Oxygen Flow Rate 08/22/23 18:50 06
[2023-08-23] MEDS: HYDROcodone/acetaminophen (*CRX) 10-325 MG TABLET 1 TAB PO (16:12)
[2023-08-23] MEDS: POTASSIUM CHLORIDE 20 MEQ PACKET (FOR LIQUID) 40 MEQ PO (16:13)
[2023-08-23 16:23] LABS: Glucose Point of Care 226 mg/dl (65-105)
[2023-08-23 20:38] LABS: Glucose Point of Care 277 mg/dl (65-105)
[2023-08-23] MEDS: CYCLOBENZAPRINE HCL 10 MG TABLET PO (20:53)
[2023-08-24] VITALS (16 sets, daily range): BP systolic 114–119; BP diastolic 56–61; PULSE 77–92; RESP 12–16; TEMP 36.1–36.3; O2SAT 91–98
[2023-08-24] MEDS: HYDROcodone/acetaminophen (*CRX) 10-325 MG TABLET 1 TAB PO ×2 (05:18→12:36)
[2023-08-24 07:24] LABS: Glucose Point of Care 189 mg/dl (65-105)
[2023-08-24] MEDS: LORATADINE 10 MG TABLET PO (08:20)
[2023-08-24] MEDS: GABAPENTIN 300 MG CAPSULE PO ×3 (08:20→16:46)
[2023-08-24] MEDS: ASPIRIN 81 MG CHEWABLE TABLET PO (08:20)
[2023-08-24] MEDS: FUROSEMIDE 20 MG TABLET 60 MG PO ×2 (08:20→16:46)
[2023-08-24] MEDS: FLUTICASONE PROPIONATE 0.05% NA SPR 16 GM BTL (*BKC) 2 SPRAY NASAL ×2 (08:21→21:00)
[2023-08-24] MEDS: ENOXAPARIN 30 MG/0.3 ML SYRINGE SUB-Q ×2 (08:21→20:59)
[2023-08-24] MEDS: ATORVASTATIN 40 MG TABLET 80 MG PO (08:21)
[2023-08-24] MEDS: POTASSIUM CHLORIDE 20 MEQ PACKET (FOR LIQUID) 40 MEQ PO ×2 (08:21→16:46)
[2023-08-24] MEDS: ACETAMINOPHEN 325 MG TABLET 650 MG PO ×2 (08:22→16:45)
--- NOTE | 2023-08-24 09:48 | PM.PNGS ---
Progress Note: A&P Assessment and Plan (1) Cholelithiasis: Code(s): K80.20 - Calculus of gallbladder without cholecystitis without obstruction Status: Acute Assessment and Plan: exam benign, paradise low fat diet, cont conservative mgmt, no acute surgical issues, will s/o, call c ?s, issues, f/u as outpt Subjective Subjective Date/Time Seen: 08/24/23 09:48 Interval history: feels better today, paradise low fat diet, no abd pain Review of Systems Review of Systems: All systems reviewed & are unremarkable except as noted in HPI and below Exam Const: General: cooperative, comfortable, no acute distress, ill appearing and obese Resp: Auscultation: diminished lung sounds Cardio: Rate: regular rate Rhythm: regular rhythm GI: Inspection: Abdominal wall edema and distended GI Palp: No abdominal tenderness, Yes Soft to palpation, No Tenderness to palpation present (GI), No Guarding due to palpation present (GI) and No Rigid due to palpation Objective Data Vital Signs Vital Signs: Vital Signs - 24 hr 08/23/23 12:00 08/23/23 14:00 08/23/23 16:00 Temperature 36.1 C L Pulse Rate 75 89 82 Respiratory Rate 18 Blood Pressure 116/67 Pulse Oximetry 100 Oxygen Delivery Oxygen Flow Rate Fraction of Inspired Oxygen 08/23/23 20:00 08/23/23 23:15 08/23/23 22:30 Temperature 36.4 C L Pulse Rate 82 84 83 Respiratory Rate 18 13 Blood Pressure 95/75 L Pulse Oximetry 100 97 100 Oxygen Delivery High Flow Nasal Cannula BiPAP Oxygen Flow Rate 8 Fraction of Inspired Oxygen 60 08/23/23 20:00 08/24/23 00:00 08/24/23 04:08 Temperature Pulse Rate 84 86 80 Respiratory Rate Blood Pressure Pulse Oximetry 98 Oxygen Delivery BiPAP Oxygen Flow Rate Fraction of Inspired Oxygen 08/24/23 05:09 08/24/23 05:16 08/24/23 04:00 Temperature 36.2 C L Pulse Rate 83 83 Respiratory Rate 12 Blood Pressure 119/56 L Pulse Oximetry 94 98 Oxygen Delivery Nasal Cannula Oxygen Flow Rate Fraction of Inspired Oxygen 08/24/23 08:23 08/24/23 09:00 Temperature Pulse Rate Respiratory Rate Blood Pressure Pulse Oximetry 97 96 Oxygen Delivery High Flow Nasal Cannula High Flow Nasal Cannula Oxygen Flow Rate 8 6 Fraction of Inspired Oxygen Intake/Output Intake/Output: Intake & Output 08/21/23 08/22/23 08/23/23 08/24/23 23:59 23:59 23:59 23:59 Intake Total 830 9032 558 0057 Output Total 3550 [address] [facility] -[phone] Meds/Results Medications: Active Medications Generic Name Dose Route Start Last Admin Trade Name Freq PRN Reason Stop Dose Admin Acetaminophen 650 mg 08/14/23 21:19 08/24/23 08:22 Acetaminophen 325 Mg Tablet PO 650 mg Q4H PRN Administration Mild Pain (1-3) or Fever Hydrocodone Bitart/Acetaminophen 1 tab 08/15/23 11:19 08/24/23 05:18 Hydrocodone/Acetaminophen (*Crx) 10-325 Mg Tablet PO 1 tab TID PRN Administration Pain (Scale Score 4-6) Amlodipine Besylate 5 mg 08/15/23 11:20 08/23/23 08:05 Amlodipine Besylate 5 Mg Tablet PO Not Given DAILY LUIZ Aspirin 81 mg 08/15/23 08:00 08/24/23 08:20 Aspirin 81 Mg Chewable Tablet PO 81 mg DAILY@0800 LUIZ Administration Atorvastatin Calcium 80 mg 08/16/23 09:00 08/24/23 08:21 Atorvastatin 40 Mg Tablet PO 80 mg DAILY LUIZ Administration Cyclobenzaprine HCl 10 mg 08/16/23 21:00 08/23/23 20:53 Cyclobenzaprine Hcl 10 Mg Tablet PO 10 mg HS LUIZ Administration Dextrose 12.5 gm 08/15/23 11:17 08/16/23 06:42 Dextrose 50% 25 Gm/50 Ml Syringe IV PUSH 12.5 gm PRN PRN Administration Hypoglycemia Protocol Enoxaparin Sodium 30 mg 08/15/23 21:00 08/24/23 08:21 Enoxaparin 30 Mg/0.3 Ml Syringe SUB-Q 30 mg Q12HR LUIZ Administration Fluticasone Propionate 2 spray 08/22/23 09:00 08/24/23 08:21 Fluticasone Propionate 0.05% Na Spr 16 Gm Btl (*Bkc) NASAL 2 spray Q12HR SC
--- NOTE | 2023-08-24 10:52 | PM.IMPN ---
Progress Note: A&P Assessment and Plan (1) Obesity hypoventilation syndrome: Code(s): E66.2 - Morbid (severe) obesity with alveolar hypoventilation Status: Acute (2) Diabetes mellitus: Code(s): E11.9 - Type 2 diabetes mellitus without complications Status: Acute (3) Elevated troponin: Code(s): R79.89 - Other specified abnormal findings of blood chemistry Status: Acute (4) NILDA (acute kidney injury): Code(s): N17.9 - Acute kidney failure, unspecified Status: Acute (5) Lung infiltrate: Code(s): R91.8 - Other nonspecific abnormal finding of lung field Status: Acute (6) Lactic acidosis: Code(s): E87.20 - Acidosis, unspecified Status: Acute (7) Morbid obesity with BMI of 45.0-49.9, adult: Code(s): E66.01 - Morbid (severe) obesity due to excess calories; Z68.42 - Body mass index [BMI] 45.0-49.9, adult Status: Acute (8) Acute hypercapnic respiratory failure: Code(s): J96.02 - Acute respiratory failure with hypercapnia Status: Acute Plan (1) Acute hypercapnic respiratory failure: ?Code(s): J96.02 - Acute respiratory failure with hypercapnia ?Status:?Acute ?Assessment and Plan: Admit to IMU under full inpatient status Patient weaned off from continuous BiPAP ...? Now on high flow oxygen to be weaned off as tolerated keeping O2 sats around 94% Serial ABGs show slow improvement Pulmonary consult and recommendations reviewed, appreciated positive D-dimer, CT of chest was ordered per card seller CTA chest shows no PE. But moderate atelectasis in the lungs, venous Doppler shows no DVT patient still on high-flow oxygen but continue improved, today patient is on 5-6 L oxygen via nasal cannular (2) Lung infiltrate: ?Code(s): R91.8 - Other nonspecific abnormal finding of lung field ?Status:?Acute ?Assessment and Plan: ?patient started on antibiotics in the form of IV Rocephin and Zithromax ?cultures in progress ?Follow-up closely with Pulmonary, card seller considers less likely infection, discontinue antibiotics (3) Congestive heart failure: ?Code(s): I50.9 - Heart failure, unspecified ?Status:?Acute ?Assessment and Plan: Continue with IV diuresis Daily intake and output Cardiology consult patient still has a significant fluid overload, patient is on 60 mg b.i.d., and Bumex 1 mg once a daily edema has improved significantly, changed to Lasix 60 mg b.i.d. p.o. follow-up input output: c/w current treatment Gallstone radiologist's reports cholelithiasis. Gallbladder distention may secondary to fasting. Correlate with physical exam for evidence of acute cholecystitis. consult general surgeon for evaluation and treatment (4) Morbid obesity with BMI of 45.0-49.9, adult: ?Code(s): E66.01 - Morbid (severe) obesity due to excess calories; Z68.42 - Body mass index [BMI] 45.0-49.9, adult ?Status:?Acute ?Assessment and Plan: ?lifestyle and diet modifications (5) Lactic acidosis: ?Code(s): E87.20 - Acidosis, unspecified ?Status:?Acute ?Assessment and Plan: ?will hold metformin ?likely multifactorial Lactic acidosis Downtrending 5.5 > 2.1 > 1.3 ...? Resolved (6) NILDA (acute kidney injury): ?Code(s): N17.9 - Acute kidney failure, unspecified ?Status:?Acute ?Assessment and Plan: ?will hold meloxicam ?daily intake and output ?renal ultrasound shows normal kidneys with The renal functions are slowly improving and currently stable (7) Diabetes mellitus: ?Code(s): E11.9 - Type 2 diabetes mellitus without complications ?Status:?Acute ?Assessment and Plan: Continue diabetic meds Hold metformin Accu-Cheks qAC and qHS ordered with low-dose insulin coverage as per protocol (8) Elevated troponin: ?Code(s): R79.89 - Other specified abnormal findings of blood chemistry ?Status:?Acute ?Assessment and Fabrizio
[2023-08-24 11:50] LABS: Glucose Point of Care 300 mg/dl (65-105)
[2023-08-24] MEDS: INSULIN ASPART (*BKC) 100 UNITS/ML SUB-Q ×3 (12:35→20:59)
[2023-08-24 16:37] LABS: Glucose Point of Care 292 mg/dl (65-105)
[2023-08-24 20:11] LABS: Glucose Point of Care 266 mg/dl (65-105)
[2023-08-24] MEDS: CYCLOBENZAPRINE HCL 10 MG TABLET PO (20:59)
[2023-08-25] VITALS (13 sets, daily range): BP systolic 116–131; BP diastolic 59–71; PULSE 82–95; RESP 16–18; TEMP 36–36.9; O2SAT 92–98
[2023-08-25 07:33] LABS: Glucose Point of Care 190 mg/dl (65-105)
[2023-08-25] MEDS: POTASSIUM CHLORIDE 20 MEQ PACKET (FOR LIQUID) 40 MEQ PO ×2 (08:25→17:29)
[2023-08-25] MEDS: FUROSEMIDE 20 MG TABLET 60 MG PO ×2 (08:26→17:29)
[2023-08-25] MEDS: ACETAMINOPHEN 325 MG TABLET 650 MG PO ×2 (08:26→17:29)
[2023-08-25] MEDS: ATORVASTATIN 40 MG TABLET 80 MG PO (08:26)
[2023-08-25] MEDS: GABAPENTIN 300 MG CAPSULE PO ×3 (08:27→17:29)
[2023-08-25] MEDS: ENOXAPARIN 30 MG/0.3 ML SYRINGE SUB-Q ×2 (08:27→21:07)
[2023-08-25] MEDS: ASPIRIN 81 MG CHEWABLE TABLET PO (08:27)
[2023-08-25] MEDS: LORATADINE 10 MG TABLET PO (08:27)
[2023-08-25] MEDS: FLUTICASONE PROPIONATE 0.05% NA SPR 16 GM BTL (*BKC) 2 SPRAY NASAL ×2 (08:29→21:07)
--- NOTE | 2023-08-25 10:54 | PM.IMPN ---
Progress Note: A&P Assessment and Plan (1) Obesity hypoventilation syndrome: Code(s): E66.2 - Morbid (severe) obesity with alveolar hypoventilation Status: Acute (2) Diabetes mellitus: Code(s): E11.9 - Type 2 diabetes mellitus without complications Status: Acute (3) Elevated troponin: Code(s): R79.89 - Other specified abnormal findings of blood chemistry Status: Acute (4) NILDA (acute kidney injury): Code(s): N17.9 - Acute kidney failure, unspecified Status: Acute (5) Lung infiltrate: Code(s): R91.8 - Other nonspecific abnormal finding of lung field Status: Acute (6) Lactic acidosis: Code(s): E87.20 - Acidosis, unspecified Status: Acute (7) Morbid obesity with BMI of 45.0-49.9, adult: Code(s): E66.01 - Morbid (severe) obesity due to excess calories; Z68.42 - Body mass index [BMI] 45.0-49.9, adult Status: Acute (8) Acute hypercapnic respiratory failure: Code(s): J96.02 - Acute respiratory failure with hypercapnia Status: Acute Plan # Acute hypercapnic respiratory failure: initially requiring BiPAP Patient weaned off from continuous BiPAP ...? Now on high flow oxygen to be weaned off as tolerated keeping O2 sats around 94% Serial ABGs show slow improvement Pulmonary consult and recommendations reviewed, appreciated positive D-dimer, CTA chest shows no PE. But moderate atelectasis in the lungs, venous Doppler shows no DVT patient still on high-flow oxygen but continue improved, continue to taper down oxygen via nasal cannula # Lung infiltrate: ?patient started on antibiotics in the form of IV Rocephin and Zithromax ?cultures in progress ?Follow-up closely with Pulmonary, asset accountant considers less likely infection, discontinue antibiotics # Congestive heart failure: Continue with IV diuresis Daily intake and output Cardiology consult patient still has a significant fluid overload, patient is on 60 mg b.i.d., and Bumex 1 mg once a daily edema has improved significantly, changed to Lasix 60 mg b.i.d. p.o. follow-up input output: c/w current treatment #[facility] radiologist's reports cholelithiasis. Gallbladder distention may secondary to fasting. Correlate with physical exam for evidence of acute cholecystitis. general surgery consulted # Morbid obesity with BMI of 45.0-49.9, adult: ?lifestyle and diet modifications # Lactic acidosis: ?will hold metformin ?likely multifactorial Lactic acidosis Downtrending 5.5 > 2.1 > 1.3 ...? Resolved # NILDA (acute kidney injury): ?will hold meloxicam ?daily intake and output ?renal ultrasound shows normal kidneys with The renal functions are slowly improving and currently stable # Diabetes mellitus: Continue diabetic meds Hold metformin Accu-Cheks qAC and qHS ordered with low-dose insulin coverage as per protocol # Elevated troponin: Patient has elevated troponins secondary to likely myocardial demand ischemia versus NSTEMI Troponin peaked at 2.090, now slowly downtrending 2D echo ordered which showed preserved left ventricular function with EF 60-65 % Patient has the mild concentric increased left ventricular wall thickness consistent with LVH Continue with beta-randy and cardiac meds as per cardiology Cardiology evaluated the patient and want to monitor him closely He is not a candidate for aggressive workup and intervention given his obesity-hypoventilation syndrome and multiple chronic medical issues consult PT OT patient is waiting for placement, plan discharge patient to rehab. patient is ready to be discharged, director critical care is working on placement. Subjective Date/time seen: 08/25/23 10:54 Interval history: patientFeeling well. Oxygen requirement is down to 5 L. sitting up in the chair family at bedside. Discussed with nursing staff. Review of Systems Review of Systems: All systems reviewed & are unremarkable except as noted in
[2023-08-25 11:32] LABS: Glucose Point of Care 291 mg/dl (65-105)
[2023-08-25 11:32] LABS: Hematocrit 51.7 % (42.0-52.0); Hemoglobin 16.2 g/dL (14.0-18.0); Mean Corpuscular HGB Conc 31.3 g/dl (32-36); Mean Corpuscular Hemoglobin 29.8 pg (26-34); Mean Platelet Volume 10.7 fl (7.4-10.4); Platelet Count Result 276 k/mm3 (150-375); Red Blood Count 5.44 M/mm3 (4.6-6.20); White Blood Count 7.3 K/mm3 (4.5-10.0)
[2023-08-25 11:43] LABS: Anion Gap 4 mmol/L (4-12); Blood Urea Nitrogen 20 mg/dL (9-20); Calcium 8.8 mg/dL (8.4-10.2); Carbon Dioxide 38 mmol/L (22-30); Chloride 94 mmol/L (98-107); Estimated CRCL calculation 120 ml/min; Estimated Glomerular Filt Rate > 60; Glucose 296 mg/dL (65-110); Potassium 3.5 mmol/L (3.4-5.0); Sodium 136 mmol/L (137-145)
[2023-08-25] MEDS: INSULIN ASPART (*BKC) 100 UNITS/ML SUB-Q ×3 (11:55→21:08)
[2023-08-25 16:30] LABS: Glucose Point of Care 285 mg/dl (65-105)
[2023-08-25 20:12] LABS: Glucose Point of Care 367 mg/dl (65-105)
[2023-08-25] MEDS: CYCLOBENZAPRINE HCL 10 MG TABLET PO (21:07)
[2023-08-26] VITALS (13 sets, daily range): BP systolic 110–120; BP diastolic 53–71; PULSE 74–89; RESP 16–18; TEMP 36–36.9; O2SAT 93–97
[2023-08-26 00:15] LABS: Glucose Point of Care 241 mg/dl (65-105)
[2023-08-26] MEDS: INSULIN ASPART (*BKC) 100 UNITS/ML SUB-Q ×5 (00:23→20:58)
[2023-08-26 07:54] LABS: Glucose Point of Care 210 mg/dl (65-105)
[2023-08-26] MEDS: FUROSEMIDE 20 MG TABLET 60 MG PO ×2 (09:08→17:08)
[2023-08-26] MEDS: ASPIRIN 81 MG CHEWABLE TABLET PO (09:08)
[2023-08-26] MEDS: GABAPENTIN 300 MG CAPSULE PO ×3 (09:08→17:08)
[2023-08-26] MEDS: POTASSIUM CHLORIDE 20 MEQ PACKET (FOR LIQUID) 40 MEQ PO ×2 (09:09→17:07)
[2023-08-26] MEDS: ATORVASTATIN 40 MG TABLET 80 MG PO (09:09)
[2023-08-26] MEDS: ENOXAPARIN 30 MG/0.3 ML SYRINGE SUB-Q ×2 (09:09→20:57)
[2023-08-26] MEDS: FLUTICASONE PROPIONATE 0.05% NA SPR 16 GM BTL (*BKC) 2 SPRAY NASAL ×2 (09:09→20:58)
[2023-08-26] MEDS: LORATADINE 10 MG TABLET PO (09:09)
--- NOTE | 2023-08-26 10:10 | PCOTNOTE ---
Attempted to see Patient this session. Patient having increased pain, waiting for MD. Patient states she can not do anything until he receives something for the pain all over his body.
[2023-08-26] MEDS: HYDROcodone/acetaminophen (*CRX) 10-325 MG TABLET 1 TAB PO ×2 (10:49→17:08)
--- NOTE | 2023-08-26 11:57 | PM.IMPN ---
Progress Note: A&P Assessment and Plan (1) Obesity hypoventilation syndrome: Code(s): E66.2 - Morbid (severe) obesity with alveolar hypoventilation Status: Acute (2) Diabetes mellitus: Code(s): E11.9 - Type 2 diabetes mellitus without complications Status: Acute (3) Elevated troponin: Code(s): R79.89 - Other specified abnormal findings of blood chemistry Status: Acute (4) NILDA (acute kidney injury): Code(s): N17.9 - Acute kidney failure, unspecified Status: Acute (5) Lung infiltrate: Code(s): R91.8 - Other nonspecific abnormal finding of lung field Status: Acute (6) Lactic acidosis: Code(s): E87.20 - Acidosis, unspecified Status: Acute (7) Morbid obesity with BMI of 45.0-49.9, adult: Code(s): E66.01 - Morbid (severe) obesity due to excess calories; Z68.42 - Body mass index [BMI] 45.0-49.9, adult Status: Acute (8) Acute hypercapnic respiratory failure: Code(s): J96.02 - Acute respiratory failure with hypercapnia Status: Acute Plan # Acute hypercapnic respiratory failure: initially requiring BiPAP Patient weaned off from continuous BiPAP ...? Now on high flow oxygen to be weaned off as tolerated keeping O2 sats around 94% Serial ABGs show slow improvement Pulmonary consult and recommendations reviewed, appreciated positive D-dimer, CTA chest shows no PE. But moderate atelectasis in the lungs, venous Doppler shows no DVT patient still on high-flow oxygen but continue improved, continue to taper down oxygen via nasal cannula # Lung infiltrate: ?patient started on antibiotics in the form of IV Rocephin and Zithromax ?cultures in progress ?Follow-up closely with Pulmonary, sales assoc considers less likely infection, discontinue antibiotics # Congestive heart failure: Continue with IV diuresis Daily intake and output Cardiology consult patient still has a significant fluid overload, patient is on 60 mg b.i.d., and Bumex 1 mg once a daily edema has improved significantly, changed to Lasix 60 mg b.i.d. p.o. follow-up input output: c/w current treatment #[facility] radiologist's reports cholelithiasis. Gallbladder distention may secondary to fasting. Correlate with physical exam for evidence of acute cholecystitis. general surgery consulted # Morbid obesity with BMI of 45.0-49.9, adult: ?lifestyle and diet modifications # Lactic acidosis: ?will hold metformin ?likely multifactorial Lactic acidosis Downtrending 5.5 > 2.1 > 1.3 ...? Resolved # NILDA (acute kidney injury): ?will hold meloxicam ?daily intake and output ?renal ultrasound shows normal kidneys with The renal functions are slowly improving and currently stable # Diabetes mellitus: Continue diabetic meds Hold metformin Accu-Cheks qAC and qHS ordered with low-dose insulin coverage as per protocol # Elevated troponin: Patient has elevated troponins secondary to likely myocardial demand ischemia versus NSTEMI Troponin peaked at 2.090, now slowly downtrending 2D echo ordered which showed preserved left ventricular function with EF 60-65 % Patient has the mild concentric increased left ventricular wall thickness consistent with LVH Continue with beta-randy and cardiac meds as per cardiology Cardiology evaluated the patient and want to monitor him closely He is not a candidate for aggressive workup and intervention given his obesity-hypoventilation syndrome and multiple chronic medical issues consult PT OT patient is waiting for placement, plan discharge patient to rehab. patient is ready to be discharged, childcare director is working on placement. Subjective Date/time seen: 08/26/23 11:57 Interval history: Reports chronic back pain, breathing is improved. Oxygen requirement is down to 2 liter/minute this a.m. no cough Review of Systems Review of Systems: All systems reviewed & are unremarkable except as noted in HPI and below
[2023-08-26 12:00] LABS: Glucose Point of Care 266 mg/dl (65-105)
--- NOTE | 2023-08-26 15:08 | PCOTNOTE ---
Attempted this P.M. for treatment session. Patient verbalized, I'm sleeping, not up for it now, come back tomorrow .
[2023-08-26 16:25] LABS: Glucose Point of Care 233 mg/dl (65-105)
[2023-08-26 20:28] LABS: Glucose Point of Care 282 mg/dl (65-105)
[2023-08-26] MEDS: CYCLOBENZAPRINE HCL 10 MG TABLET PO (20:57)
[2023-08-27] VITALS (12 sets, daily range): BP systolic 119–144; BP diastolic 50–64; PULSE 82–92; RESP 18–20; TEMP 35.9–36.6; O2SAT 91–98
[2023-08-27 07:51] LABS: Glucose Point of Care 182 mg/dl (65-105)
[2023-08-27] MEDS: GABAPENTIN 300 MG CAPSULE PO ×3 (08:02→16:49)
[2023-08-27] MEDS: LORATADINE 10 MG TABLET PO (08:02)
[2023-08-27] MEDS: ENOXAPARIN 30 MG/0.3 ML SYRINGE SUB-Q ×2 (08:02→20:57)
[2023-08-27] MEDS: ASPIRIN 81 MG CHEWABLE TABLET PO (08:02)
[2023-08-27] MEDS: FUROSEMIDE 20 MG TABLET 60 MG PO ×2 (08:02→16:47)
[2023-08-27] MEDS: ATORVASTATIN 40 MG TABLET 80 MG PO (08:02)
[2023-08-27] MEDS: POTASSIUM CHLORIDE 20 MEQ PACKET (FOR LIQUID) 40 MEQ PO ×2 (08:02→16:46)
[2023-08-27] MEDS: HYDROcodone/acetaminophen (*CRX) 10-325 MG TABLET 1 TAB PO ×3 (08:03→23:08)
[2023-08-27] MEDS: FLUTICASONE PROPIONATE 0.05% NA SPR 16 GM BTL (*BKC) 2 SPRAY NASAL ×2 (08:09→20:57)
--- NOTE | 2023-08-27 08:32 | PM.IMPN ---
Progress Note: A&P Assessment and Plan (1) Obesity hypoventilation syndrome: Code(s): E66.2 - Morbid (severe) obesity with alveolar hypoventilation Status: Acute (2) Diabetes mellitus: Code(s): E11.9 - Type 2 diabetes mellitus without complications Status: Acute (3) Elevated troponin: Code(s): R79.89 - Other specified abnormal findings of blood chemistry Status: Acute (4) NILDA (acute kidney injury): Code(s): N17.9 - Acute kidney failure, unspecified Status: Acute (5) Lung infiltrate: Code(s): R91.8 - Other nonspecific abnormal finding of lung field Status: Acute (6) Lactic acidosis: Code(s): E87.20 - Acidosis, unspecified Status: Acute (7) Morbid obesity with BMI of 45.0-49.9, adult: Code(s): E66.01 - Morbid (severe) obesity due to excess calories; Z68.42 - Body mass index [BMI] 45.0-49.9, adult Status: Acute (8) Acute hypercapnic respiratory failure: Code(s): J96.02 - Acute respiratory failure with hypercapnia Status: Acute Plan # Acute hypercapnic respiratory failure: initially requiring BiPAP Patient weaned off from continuous BiPAP ...? Now on high flow oxygen to be weaned off as tolerated keeping O2 sats around 94% Serial ABGs show slow improvement Pulmonary consult and recommendations reviewed, appreciated positive D-dimer, CTA chest shows no PE. But moderate atelectasis in the lungs, venous Doppler shows no DVT patient still on high-flow oxygen but continue improved, continue to taper down oxygen via nasal cannula Uses AVAPS night. # Lung infiltrate: ?patient started on antibiotics in the form of IV Rocephin and Zithromax ?cultures in progress ?Follow-up closely with Pulmonary, e commerce merchandising coordinator considers less likely infection, discontinue antibiotics # Congestive heart failure: Continue with IV diuresis Daily intake and output Cardiology consult patient still has a significant fluid overload, patient is on 60 mg b.i.d., and Bumex 1 mg once a daily edema has improved significantly, changed to Lasix 60 mg b.i.d. p.o. follow-up input output: c/w current treatment #[facility] radiologist's reports cholelithiasis. Gallbladder distention may secondary to fasting. Correlate with physical exam for evidence of acute cholecystitis. general surgery consulted # Morbid obesity with BMI of 45.0-49.9, adult: ?lifestyle and diet modifications # Lactic acidosis: ?will hold metformin ?likely multifactorial Lactic acidosis Downtrending 5.5 > 2.1 > 1.3 ...? Resolved # NILDA (acute kidney injury): ?will hold meloxicam ?daily intake and output ?renal ultrasound shows normal kidneys with The renal functions are slowly improving and currently stable # Diabetes mellitus: Continue diabetic meds Hold metformin Accu-Cheks qAC and qHS ordered with low-dose insulin coverage as per protocol # Elevated troponin: Patient has elevated troponins secondary to likely myocardial demand ischemia versus NSTEMI Troponin peaked at 2.090, now slowly downtrending 2D echo ordered which showed preserved left ventricular function with EF 60-65 % Patient has the mild concentric increased left ventricular wall thickness consistent with LVH Continue with beta-randy and cardiac meds as per cardiology Cardiology evaluated the patient and want to monitor him closely He is not a candidate for aggressive workup and intervention given his obesity-hypoventilation syndrome and multiple chronic medical issues consult PT OT patient is waiting for placement, plan discharge patient to rehab. patient is ready to be discharged, patient care manager is working on placement. Subjective Date/time seen: 08/27/23 08:32 Interval history: complains of on his chronic pain. When his pain medication. Breathing better. Uses AVAPS at night. Oxygen supplementation stable 2-3 liters/minute. awaiting insurance authorization for placement Review o
--- NOTE | 2023-08-27 08:42 | PM.DS ---
DS: Admitting Diagnosis Discharge Date 08/27/2023 Admitting Diagnosis shortness of breath DS: Discharge Diagnosis Discharge Diagnosis (1) Obesity hypoventilation syndrome: Code(s): E66.2 - Morbid (severe) obesity with alveolar hypoventilation Status: Acute (2) Diabetes mellitus: Code(s): E11.9 - Type 2 diabetes mellitus without complications Status: Acute (3) Elevated troponin: Code(s): R79.89 - Other specified abnormal findings of blood chemistry Status: Acute (4) NILDA (acute kidney injury): Code(s): N17.9 - Acute kidney failure, unspecified Status: Acute (5) Lung infiltrate: Code(s): R91.8 - Other nonspecific abnormal finding of lung field Status: Acute (6) Lactic acidosis: Code(s): E87.20 - Acidosis, unspecified Status: Acute (7) Morbid obesity with BMI of 45.0-49.9, adult: Code(s): E66.01 - Morbid (severe) obesity due to excess calories; Z68.42 - Body mass index [BMI] 45.0-49.9, adult Status: Acute (8) Acute hypercapnic respiratory failure: Code(s): J96.02 - Acute respiratory failure with hypercapnia Status: Acute DS: Summary Hospital Course Hospital Course: # Acute hypercapnic respiratory failure: initially requiring BiPAP Patient weaned off from continuous BiPAP ...? Now on high flow oxygen to be weaned off as tolerated keeping O2 sats around 94% Serial ABGs show slow improvement Pulmonary consult and recommendations reviewed, appreciated positive D-dimer, CTA chest shows no PE. But moderate atelectasis in the lungs, venous Doppler shows no DVT patient still on high-flow oxygen but continue improved, continue to taper down oxygen via nasal cannula Uses AVAPS night. # Lung infiltrate: ?patient started on antibiotics in the form of IV Rocephin and Zithromax ?cultures in progress ?Follow-up closely with Pulmonary, website designer considers less likely infection, discontinue antibiotics # Congestive heart failure: Continue with IV diuresis Daily intake and output Cardiology consult patient still has a significant fluid overload, patient is on 60 mg b.i.d., and Bumex 1 mg once a daily edema has improved significantly, changed to Lasix 60 mg b.i.d. p.o. follow-up input output: c/w current treatment #[facility] radiologist's reports cholelithiasis. Gallbladder distention may secondary to fasting. Correlate with physical exam for evidence of acute cholecystitis. general surgery consulted # Morbid obesity with BMI of 45.0-49.9, adult: ?lifestyle and diet modifications # Lactic acidosis: ?will hold metformin ?likely multifactorial Lactic acidosis Downtrending 5.5 > 2.1 > 1.3 ...? Resolved # NILDA (acute kidney injury): ?will hold meloxicam ?daily intake and output ?renal ultrasound shows normal kidneys with The renal functions are slowly improving and currently stable # Diabetes mellitus: Continue diabetic meds Hold metformin Accu-Cheks qAC and qHS ordered with low-dose insulin coverage as per protocol # Elevated troponin: Patient has elevated troponins secondary to likely myocardial demand ischemia versus NSTEMI Troponin peaked at 2.090, now slowly downtrending 2D echo ordered which showed preserved left ventricular function with EF 60-65 % Patient has the mild concentric increased left ventricular wall thickness consistent with LVH Continue with beta-randy and cardiac meds as per cardiology Cardiology evaluated the patient and want to monitor him closely He is not a candidate for aggressive workup and intervention given his obesity-hypoventilation syndrome and multiple chronic medical issues consult PT OT patient is waiting for placement, plan discharge patient to rehab. patient is ready to be discharged, cardiac care unit nurse is working on placement. Time Spent with Patient Time attestation: Total time spent providing and/or coordinating discharge services: 45 minutes Exam Rick
[2023-08-27 11:42] LABS: Glucose Point of Care 295 mg/dl (65-105)
[2023-08-27] MEDS: INSULIN ASPART (*BKC) 100 UNITS/ML SUB-Q ×3 (12:55→20:58)
[2023-08-27 16:41] LABS: Glucose Point of Care 237 mg/dl (65-105)
[2023-08-27] MEDS: CYCLOBENZAPRINE HCL 10 MG TABLET PO (20:57)
[2023-08-27 21:06] LABS: Glucose Point of Care 240 mg/dl (65-105)
[2023-08-28] VITALS (9 sets, daily range): BP systolic 126–139; BP diastolic 71–79; PULSE 78–110; RESP 18–22; TEMP 36.2–36.9; O2SAT 90–100
[2023-08-28 07:38] LABS: Glucose Point of Care 193 mg/dl (65-105)
[2023-08-28] MEDS: ASPIRIN 81 MG CHEWABLE TABLET PO (08:26)
[2023-08-28] MEDS: GABAPENTIN 300 MG CAPSULE PO ×3 (08:26→16:52)
[2023-08-28] MEDS: ATORVASTATIN 40 MG TABLET 80 MG PO (08:26)
[2023-08-28] MEDS: FLUTICASONE PROPIONATE 0.05% NA SPR 16 GM BTL (*BKC) 2 SPRAY NASAL ×2 (08:26→20:37)
[2023-08-28] MEDS: POTASSIUM CHLORIDE 20 MEQ PACKET (FOR LIQUID) 40 MEQ PO ×2 (08:26→16:52)
[2023-08-28] MEDS: FUROSEMIDE 20 MG TABLET 60 MG PO ×2 (08:26→16:52)
[2023-08-28] MEDS: LORATADINE 10 MG TABLET PO (08:26)
[2023-08-28] MEDS: HYDROcodone/acetaminophen (*CRX) 10-325 MG TABLET 1 TAB PO ×2 (08:32→16:52)
[2023-08-28] MEDS: ENOXAPARIN 30 MG/0.3 ML SYRINGE SUB-Q ×2 (08:33→20:37)
[2023-08-28 10:27] LABS: Hematocrit 52.8 % (42.0-52.0); Hemoglobin 16.9 g/dL (14.0-18.0); Mean Corpuscular Volume 93.6 fl (80-100); Mean Platelet Volume 10.1 fl (7.4-10.4); Platelet Count Result 311 k/mm3 (150-375); Red Blood Count 5.64 M/mm3 (4.6-6.20); Red Cell Distribution Width 13.7 % (11.5-14.5); White Blood Count 6.1 K/mm3 (4.5-10.0)
[2023-08-28 10:39] LABS: Alanine Aminotransferase 39 U/L (6-50); Albumin Level 3.9 g/dL (3.5-5.1); Alkaline Phosphatase 123 U/L (38-126); Anion Gap 4 mmol/L (4-12); Aspartate Amino Transferase 50 U/L (17-59); Bilirubin,Total 1.2 mg/dL (0.2-1.3); Blood Urea Nitrogen 20 mg/dL (9-20); Calcium 9.1 mg/dL (8.4-10.2); Carbon Dioxide 36 mmol/L (22-30); Chloride 96 mmol/L (98-107); Estimated CRCL calculation 107 ml/min; Estimated Glomerular Filt Rate > 60; Glucose 293 mg/dL (65-110); Potassium 3.9 mmol/L (3.4-5.0); Sodium 136 mmol/L (137-145)
[2023-08-28 11:33] LABS: Glucose Point of Care 268 mg/dl (65-105)
[2023-08-28] MEDS: INSULIN ASPART (*BKC) 100 UNITS/ML SUB-Q ×3 (11:46→21:54)
--- NOTE | 2023-08-28 12:52 | P.PNIM_ITS ---
Progress Note: A&P Assessment and Plan (1) Obesity hypoventilation syndrome: Code(s): E66.2 - Morbid (severe) obesity with alveolar hypoventilation Status: Acute (2) Diabetes mellitus: Code(s): E11.9 - Type 2 diabetes mellitus without complications Status: Acute (3) Elevated troponin: Code(s): R79.89 - Other specified abnormal findings of blood chemistry Status: Acute (4) NILDA (acute kidney injury): Code(s): N17.9 - Acute kidney failure, unspecified Status: Acute (5) Lung infiltrate: Code(s): R91.8 - Other nonspecific abnormal finding of lung field Status: Acute (6) Lactic acidosis: Code(s): E87.20 - Acidosis, unspecified Status: Acute (7) Morbid obesity with BMI of 45.0-49.9, adult: Code(s): E66.01 - Morbid (severe) obesity due to excess calories; Z68.42 - Body mass index [BMI] 45.0-49.9, adult Status: Acute (8) Acute hypercapnic respiratory failure: Code(s): J96.02 - Acute respiratory failure with hypercapnia Status: Acute Plan # Acute hypercapnic respiratory failure: initially requiring BiPAP Patient weaned off from continuous BiPAP ...? Now on high flow oxygen to be weaned off as tolerated keeping O2 sats around 94% Serial ABGs show slow improvement Pulmonary consult and recommendations reviewed, appreciated positive D-dimer, CTA chest shows no PE. But moderate atelectasis in the lungs, venous Doppler shows no DVT patient still on high-flow oxygen but continue improved, continue to taper down oxygen via nasal cannula Uses AVAPS night. * Remains at 3 L NC # Lung infiltrate: RESOLVED ?patient started on antibiotics in the form of IV Rocephin and Zithromax ?cultures in progress ?Follow-up closely with Pulmonary, stoneworking belt sander considers less likely infection, discontinue antibiotics # Congestive heart failure: Transition to PO Lasix from IV Daily intake and output Cardiology consult edema has improved significantly, changed to Lasix 60 mg b.i.d. p.o. follow-up input output: c/w current treatment * elevate BLE * Lino wrap BLE #[facility] * radiologist's reports cholelithiasis. Gallbladder distention may secondary to fasting. Correlate with physical exam for evidence of acute cholecystitis. * general surgery consulted * No surgical intervention at this time * advance diet as tolerated # Morbid obesity with BMI of 45.0-49.9, adult: * encourage increased on physical activity and lifestyle modifications * Stress monitoring and eating disorder evaluation. * encourage outpatient weight loss clinic * BMI . * Diet exercise counseling done. * consult to dietitian # Lactic acidosis: RESOLVED ?will hold metformin ?likely multifactorial Lactic acidosis Downtrending 5.5 > 2.1 > 1.3 ...? Resolved # NILDA (acute kidney injury): RESOLVED ?will hold meloxicam ?daily intake and output ?renal ultrasound shows normal kidneys with The renal functions are slowly improving and currently stable Diabetes * Accu-Cheks a.c. HS * sliding scale insulin * hold oral diabetic medications * resume patient's home long-acting * Hemoglobin A1c goal less than 7 pending * Diabetic diet * consult to dietitian * encourage lifestyle modifications and weight loss * Optimize Lino inhibitors and statins. * Watch for hypoglycemia/hypoglycemic protocol ordered # Elevated troponin: R/O ACS Patient has elevated troponins secondary to likely myocardial demand ischemia versus NSTEMI Troponin peaked at
--- NOTE | 2023-08-28 15:14 | PCNWS ---
Weekly nutritional screen. Patient is tolerating current diet with adequate intake 100% on heart healthy, diabetic diet. No weight loss reported. No nutritional needs at this time.
[2023-08-28 16:42] LABS: Glucose Point of Care 226 mg/dl (65-105)
[2023-08-28] MEDS: CYCLOBENZAPRINE HCL 10 MG TABLET PO (20:36)
[2023-08-28 21:25] LABS: Glucose Point of Care 265 mg/dl (65-105)
[2023-08-29] VITALS (12 sets, daily range): BP systolic 118–124; BP diastolic 51–68; PULSE 78–95; RESP 20–22; TEMP 36.3–36.4; O2SAT 91–100
[2023-08-29] MEDS: HYDROcodone/acetaminophen (*CRX) 10-325 MG TABLET 1 TAB PO ×2 (05:56→15:39)
[2023-08-29 07:41] LABS: Glucose Point of Care 188 mg/dl (65-105)
[2023-08-29] MEDS: LORATADINE 10 MG TABLET PO (09:46)
[2023-08-29] MEDS: FLUTICASONE PROPIONATE 0.05% NA SPR 16 GM BTL (*BKC) 2 SPRAY NASAL ×2 (09:46→20:44)
[2023-08-29] MEDS: ATORVASTATIN 40 MG TABLET 80 MG PO (09:46)
[2023-08-29] MEDS: GABAPENTIN 300 MG CAPSULE PO ×3 (09:46→18:00)
[2023-08-29] MEDS: POTASSIUM CHLORIDE 20 MEQ PACKET (FOR LIQUID) 40 MEQ PO ×2 (09:46→18:00)
[2023-08-29] MEDS: ASPIRIN 81 MG CHEWABLE TABLET PO (09:46)
[2023-08-29] MEDS: FUROSEMIDE 20 MG TABLET 60 MG PO ×2 (09:49→18:00)
[2023-08-29] MEDS: ENOXAPARIN 30 MG/0.3 ML SYRINGE SUB-Q ×2 (09:50→20:44)
--- NOTE | 2023-08-29 11:34 | PM.IMPN ---
Progress Note: A&P Assessment and Plan (1) Obesity hypoventilation syndrome: Code(s): E66.2 - Morbid (severe) obesity with alveolar hypoventilation Status: Acute (2) Diabetes mellitus: Code(s): E11.9 - Type 2 diabetes mellitus without complications Status: Acute (3) Elevated troponin: Code(s): R79.89 - Other specified abnormal findings of blood chemistry Status: Acute (4) NILDA (acute kidney injury): Code(s): N17.9 - Acute kidney failure, unspecified Status: Acute (5) Lung infiltrate: Code(s): R91.8 - Other nonspecific abnormal finding of lung field Status: Acute (6) Lactic acidosis: Code(s): E87.20 - Acidosis, unspecified Status: Acute (7) Morbid obesity with BMI of 45.0-49.9, adult: Code(s): E66.01 - Morbid (severe) obesity due to excess calories; Z68.42 - Body mass index [BMI] 45.0-49.9, adult Status: Acute (8) Acute hypercapnic respiratory failure: Code(s): J96.02 - Acute respiratory failure with hypercapnia Status: Acute Plan # Acute hypercapnic respiratory failure: initially requiring BiPAP Patient weaned off from continuous BiPAP ...? Now on high flow oxygen to be weaned off as tolerated keeping O2 sats around 94% Serial ABGs show slow improvement Pulmonary consult and recommendations reviewed, appreciated positive D-dimer, CTA chest shows no PE. But moderate atelectasis in the lungs, venous Doppler shows no DVT patient still on high-flow oxygen but continue improved, continue to taper down oxygen via nasal cannula Uses AVAPS night. Remains at 3 L NC # Lung infiltrate: RESOLVED ?patient started on antibiotics in the form of IV Rocephin and Zithromax ?cultures in progress ?Follow-up closely with Pulmonary, pharmacy clinical specialist considers less likely infection, discontinue antibiotics # Congestive heart failure: Transition to PO Lasix from IV Daily intake and output Cardiology consult edema has improved significantly, changed to Lasix 60 mg b.i.d. p.o. follow-up input output: c/w current treatment elevate BLE Lino wrap BLE #[facility] radiologist's reports cholelithiasis. Gallbladder distention may secondary to fasting. Correlate with physical exam for evidence of acute cholecystitis. general surgery consulted No surgical intervention at this time advance diet as tolerated # Morbid obesity with BMI of 45.0-49.9, adult: encourage increased on physical activity and lifestyle modifications Stress monitoring and eating disorder evaluation. encourage outpatient weight loss clinic BMI . Diet exercise counseling done. consult to dietitian # Lactic acidosis: RESOLVED ?will hold metformin ?likely multifactorial Lactic acidosis Downtrending 5.5 > 2.1 > 1.3 ...? Resolved # NILDA (acute kidney injury): RESOLVED ?will hold meloxicam ?daily intake and output ?renal ultrasound shows normal kidneys with The renal functions are slowly improving and currently stable Diabetes Accu-Cheks a.c. HS sliding scale insulin hold oral diabetic medications resume patient's home long-acting Hemoglobin A1c goal less than 7 pending Diabetic diet consult to dietitian encourage lifestyle modifications and weight loss Optimize Lino inhibitors and statins. Watch for hypoglycemia/hypoglycemic protocol ordered # Elevated troponin: R/O ACS Patient has elevated troponins secondary to likely myocardial demand ischemia versus NSTEMI Troponin peaked at 2.090, now slowly downtrending 2D echo ordered which showed preserved left ventricular function with EF 60-65 % Patient has the mild concentric increased left ventricular wall thickness consistent with LVH Continue with beta-randy and cardiac meds as per cardiology Cardiology evaluated the patient and want to monitor him closely He is not a candidate for aggressive workup and intervention given his obesity-hypoventilation syndrome and multiple chronic m
[2023-08-29 11:49] LABS: Glucose Point of Care 230 mg/dl (65-105)
[2023-08-29] MEDS: INSULIN ASPART (*BKC) 100 UNITS/ML SUB-Q ×3 (13:13→20:44)
[2023-08-29 16:32] LABS: Glucose Point of Care 250 mg/dl (65-105)
[2023-08-29 20:06] LABS: Glucose Point of Care 230 mg/dl (65-105)
[2023-08-29] MEDS: CYCLOBENZAPRINE HCL 10 MG TABLET PO (20:43)
[2023-08-30] VITALS (12 sets, daily range): BP systolic 121–127; BP diastolic 57–67; PULSE 76–103; RESP 16; TEMP 36.3–36.4; O2SAT 87–97
[2023-08-30] MEDS: HYDROcodone/acetaminophen (*CRX) 10-325 MG TABLET 1 TAB PO (06:09)
[2023-08-30 07:44] LABS: Glucose Point of Care 171 mg/dl (65-105)
[2023-08-30] MEDS: ATORVASTATIN 40 MG TABLET 80 MG PO (09:28)
[2023-08-30] MEDS: POTASSIUM CHLORIDE 20 MEQ PACKET (FOR LIQUID) 40 MEQ PO (09:28)
[2023-08-30] MEDS: ASPIRIN 81 MG CHEWABLE TABLET PO (09:29)
[2023-08-30] MEDS: ENOXAPARIN 30 MG/0.3 ML SYRINGE SUB-Q (09:29)
[2023-08-30] MEDS: LORATADINE 10 MG TABLET PO (09:29)
[2023-08-30] MEDS: GABAPENTIN 300 MG CAPSULE PO ×2 (09:29→12:03)
[2023-08-30] MEDS: FUROSEMIDE 20 MG TABLET 60 MG PO (09:29)
[2023-08-30] MEDS: FLUTICASONE PROPIONATE 0.05% NA SPR 16 GM BTL (*BKC) 2 SPRAY NASAL (09:30)
[2023-08-30] MEDS: ACETAMINOPHEN 325 MG TABLET 650 MG PO (09:31)
[2023-08-30 11:12] LABS: Glucose Point of Care 276 mg/dl (65-105)
[2023-08-30] MEDS: INSULIN ASPART (*BKC) 100 UNITS/ML SUB-Q (12:03)
--- NOTE | 2023-08-30 13:28 | PM.DS ---
DS: Admitting Diagnosis Discharge Date 08/30/2023 Admitting Diagnosis Acute respiratory failure with hypoxia and hypercapnia DS: Discharge Diagnosis Discharge Diagnosis (1) Obesity hypoventilation syndrome: Code(s): E66.2 - Morbid (severe) obesity with alveolar hypoventilation Status: Acute (2) Diabetes mellitus: Code(s): E11.9 - Type 2 diabetes mellitus without complications Status: Acute (3) Elevated troponin: Code(s): R79.89 - Other specified abnormal findings of blood chemistry Status: Acute (4) NILDA (acute kidney injury): Code(s): N17.9 - Acute kidney failure, unspecified Status: Acute (5) Lung infiltrate: Code(s): R91.8 - Other nonspecific abnormal finding of lung field Status: Acute (6) Lactic acidosis: Code(s): E87.20 - Acidosis, unspecified Status: Acute (7) Morbid obesity with BMI of 45.0-49.9, adult: Code(s): E66.01 - Morbid (severe) obesity due to excess calories; Z68.42 - Body mass index [BMI] 45.0-49.9, adult Status: Acute (8) Acute hypercapnic respiratory failure: Code(s): J96.02 - Acute respiratory failure with hypercapnia Status: Acute Plan # Acute hypercapnic respiratory failure: initially requiring BiPAP Patient weaned off from continuous BiPAP ...? Now on high flow oxygen to be weaned off as tolerated keeping O2 sats around 94% Serial ABGs show slow improvement Pulmonary consult and recommendations reviewed, appreciated positive D-dimer, CTA chest shows no PE. But moderate atelectasis in the lungs, venous Doppler shows no DVT patient still on high-flow oxygen but continue improved, continue to taper down oxygen via nasal cannula Uses AVAPS night. 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 p.o. follow-up input output: c/w current treatment elevate BLE Lino wrap BLE #[facility] radiologist's reports cholelithiasis. Gallbladder distention may secondary to fasting. Correlate with physical exam for evidence of acute cholecystitis. general surgery consulted No surgical intervention at this time advance diet as tolerated # Morbid obesity with BMI of 45.0-49.9, adult: encourage increased on physical activity and lifestyle modifications Stress monitoring and eating disorder evaluation. encourage outpatient weight loss clinic BMI . Diet exercise counseling done. consult to dietitian # Lactic acidosis: RESOLVED ?will hold metformin ?likely multifactorial Lactic acidosis Downtrending 5.5 > 2.1 > 1.3 ...? Resolved # NILDA (acute kidney injury): RESOLVED ?will hold meloxicam ?daily intake and output ?renal ultrasound shows normal kidneys with The renal functions are slowly improving and currently stable Diabetes Accu-Cheks a.c. HS sliding scale insulin hold oral diabetic medications resume patient's home long-acting Hemoglobin A1c goal less than 7 pending Diabetic diet consult to dietitian encourage lifestyle modifications and weight loss Optimize Lino inhibitors and statins. Watch for hypoglycemia/hypoglycemic protocol ordered # Elevated troponin: R/O ACS Patient has elevated troponins secondary to likely myocardial demand ischemia versus NSTEMI Troponin peaked at 2.090, now slowly downtrending 2D echo ordered which showed preserved left ventricular function with EF 60-65 % Patient has the mild concentric increased left ventricular wall thickness consistent with LVH Continue with beta-randy and cardiac meds as per cardiology Cardiology evaluated the patient and want to monitor
--- NOTE | 2023-08-30 14:08 | HOMEO2EVAL ---
Evaluation was performed at [facility] Home Oxygen Evaluation RC: Home Oxygen (O2) Evaluation Start: 08/30/23 11:34 Freq: ONCE Status: Active Protocol: RPE Activity Type Activity Date Activity User E-sign Co-sign Detail Recorded Client Recorded Date Recorded By Document 08/30/23 13:30 CECELIA [email or web address] 08/30/23 14:08 CECELIA Document 08/30/23 13:33 CECELIA [email or web address] 08/30/23 14:08 CECELIA Document 08/30/23 13:35 CECELIA [email or web address] 08/30/23 14:08 CECELIA Document 08/30/23 13:36 CECELIA [email or web address] 08/30/23 14:08 CECELIA Document 08/30/23 13:45 CECELIA [email or web address] 08/30/23 14:08 CECELIA 08/30/23 08/30/23 08/30/23 13:30 13:33 13:35 Home O2 Evaluation [Oxygen] -Test Phase Resting Exercise Exercise -Oxygen Delivery Room Air Room Air Nasal Cannula -Oxygen Flow Rate (L/min) 1 [Pulse Oximetry] -Pulse Oximetry (90-100 %) 95 87 L 87 L [Pulse Rate] -Pulse Rate (60-100 beats/min) 90 103 H [Comments] -Home Oxygen Evaluation Comments [Charges] -Evaluation Charges O2 Evaluation by Pulmonary 08/30/23 08/30/23 13:36 13:45 Home O2 Evaluation [Oxygen] -Test Phase Exercise Resting -Oxygen Delivery Nasal Cannula Room Air -Oxygen Flow Rate (L/min) 2 [Pulse Oximetry] -Pulse Oximetry (90-100 %) 93 95 [Pulse Rate] -Pulse Rate (60-100 beats/min) 93 [Comments] -Home Oxygen Evaluation Comments PT REQUIRES 2 LITERS HOME O2 WITH ACTIVITY [Charges] -Evaluation Charges
--- NOTE | 2023-08-30 14:32 | PCRCNOTE ---
Home o2 eval done today. Pt requires 2 l with activity, room air at rest. [employer] will deliver portable o2 concentrator to room prior to D/C kim. RN aware.
== END 2023-08-30 15:40 | disposition home health service (06) | DRG 189 ==
LOC: ANHED 21:25 → ANHIMU 21:53 → ANH3MEDSUR 08-27 08:42 → ANHIMU 09-02 09:03
PROVIDERS: Family Medicine; Hospitalist; Internal Medicine; Internal Medicine Pulmonary Disease; Admitting Provider Internal Medicine; Emergency Provider Emergency Medicine; PCP Nurse Practitioner; Visit Provider Nurse Practitioner Family
DX: J96.21 Acute and chronic respiratory failure with hypoxia (principal); E66.2 Morbid (severe) obesity with alveolar hypoventilation; Z68.42 Body mass index [BMI] 45.0-49.9, adult; E87.20 Acidosis, unspecified; N17.9 Acute kidney failure, unspecified; J96.22 Acute and chronic respiratory failure with hypercapnia; E78.5 Hyperlipidemia, unspecified; E11.42 Type 2 diabetes mellitus with diabetic polyneuropathy; G89.29 Other chronic pain; I50.9 Heart failure, unspecified; K80.20 Calculus of gallbladder without cholecystitis without obstruction; M54.9 Dorsalgia, unspecified; Z99.89 Dependence on other enabling machines and devices; Z87.891 Personal history of nicotine dependence; Z79.84 Long term (current) use of oral hypoglycemic drugs
CPT/HCPCS: 36415; 36600; 71045; 71250; 71275; 76775; 80048; 80053; 80061; 80307; 81001; 82805; 82948; 83036; 83605; 83690; 83735; 83880; 84100; 84145; 84439; 84443; 84480; 84484; 85025; 85027; 85380; 85610; 85730; 87040; 87637; 87641; 93005; 93308; 93970; 94003; 94618; 94762; 96374; 96375; 97110; 97116; 97161; 97166; 97530; 97535; 99285; A9270; C8929; J0456; J0696; J1650; J1815; J1939; J1940; J3480; J7040; Q9957; Q9967

== ENCOUNTER 2023-11-25 15:56 | Outpatient (CLI) | payer MEDICARE, SELFPAY ==
--- NOTE | ~2023-11-25 | MR_ITS ---
Procedure: MR lumbar spine wo con Ordering provider: Akash Whipple, [employer] History: . Lumbar radiculopathy . Comparison: March 15, 2021 Technique: MRI lumbar spine without contrast. FINDINGS: SPINAL CORD: Normal. The cord ends at the level of L1. VERTEBRAL BODIES: Spondylolisthesis seen at the level of L5-S1. Bilateral spondylolysis is also seen at the same level. Normal height and alignment. No compression fracture. Normal marrow signal. DISK SPACES: Narrowing of the disc L3-L4 and L5-S1. Endplate changes seen at the level of L3-L4.. T12-L1: slight thickening of the ligamenta flava. L1-L2: Mild stenosis Diffuse disc bulge. Thickening of the ligamenta flava. Bilateral narrowing of th e foramina with root compression more on the left side. L2-L3: Mild spinal canal stenosis. Diffuse disc bulge. Thickening of the ligamenta flava. Annulus fis sure. L3-L4: No spinal canal stenosis. Osteophyte is noted. Slight thickening of the ligamenta flava. Narro wing of the right foramen with root compression. L4-L5: Mild spinal canal stenosis. Central disc protrusion with a wide base diffuse disc bulge. Thick ening of the ligamenta flava. L5-S1: Diffuse disc bulge. Narrowing of the foramina with root compression bilaterally. PARASPINOUS SOFT TISSUES: Normal. IMPRESSION: No compression fracture or stenosis of the lumbar spine. Spondylolisthesis at the level of L5-S1. Bilateral spondylolysis. Multilevel spinal canal stenosis with variable degrees of intervertebral foraminal narrowing and root compression. Reviewed, dictated and finalized at location A. IMPRESSION: No compression fracture or stenosis of the lumbar spine. Spondylolisthesis at the level of L5-S1. Bilateral spondylolysis. Multilevel spinal canal stenosis with variable degrees of intervertebral forami nal narrowing and root compression.
== END 2023-11-25 15:57 | disposition home or self-care (01) ==
LOC: MICIMG 15:59
PROVIDERS: PCP Nurse Practitioner; Visit Provider Nurse Practitioner Family
DX: M47.26 Other spondylosis with radiculopathy, lumbar region (principal)
CPT/HCPCS: 72148

== ENCOUNTER 2024-03-04 09:55 | Outpatient (CLI) | payer MEDICARE, SELFPAY ==
--- NOTE | ~2024-03-04 | XR_ITS ---
XR chest 2V 03/04/2024 10:10 Indication: Shortness of breath Procedure: PA and lateral views of the chest Comparison: 08/22/2023 Findings: There are linear infiltrates of the midlungs bilaterally, consistent with atelectasis. Hear t size normal. No pleural effusion or pneumothorax. Impression: 1: Bilateral subsegmental atelectasis of the mid lungs. Reviewed, dictated and finalized at location B. BEATER Impression: 1: Bilateral subsegmental atelectasis of the mid lungs.
== END 2024-03-04 09:56 | disposition home or self-care (01) ==
PROVIDERS: PCP Nurse Practitioner; Visit Provider Nurse Practitioner
DX: R06.02 Shortness of breath (principal); R91.8 Other nonspecific abnormal finding of lung field
CPT/HCPCS: 71046

== ENCOUNTER 2024-05-05 12:25 | Outpatient (CLI) | payer MEDICARE, SELFPAY ==
--- OUTSIDE RECORDS SUMMARY | 2024-05-05 12:28 | XMS_ITS | Data Portability ---
Author Organization [facility] Address [address] [place] [address] Assessment No assessment recorded. Plan of Treatment Reminders Order Date Submit Date Provider Last Modified By Organization Details Last Modified Time Details Appointments None recorded . Lab HbA1c (hemoglo bin A1c), blood 2020 021 [facility] In-Office Order, Internal Use Only DO Not Attach Compendium DO Not Attach Compendium, Do Not Delete/merge, [id number] 14:54:45 Referral neurolog ist referral 2020 021 [email or web address] Not available 17:46:06 neurolog ist referral 2018 019 [email or web address] Not available 0 12:07:42 Procedures None recorded . Surgeries None recorded . Imaging None recorded . Medication Orders cycloben zaprine 10 mg tablet 2020 021 [facility] [address], [address], [place], [address], 13:08:33 glimepir brian 4 mg tablet 2020 021 [facility] [address], [address], [place], [address], 13:08:31 metformi n 1,000 mg tablet 2020 021 [facility] [address], [address], [place], [address], 13:08:36 pioglita zone 45 mg tablet 2020 [facility] [address], [address], [place], [address], 13:08:34 lovastat in 40 mg tablet 2020 [facility] [address], [address], [place], [address], 13:08:32 amlodipi ne 5 mg tablet 2020 [facility] [address], [address], [place], [address], 13:08:31 metoprol ol tartrate 50 mg tablet 2020 [facility] [address], [address], [place], [address], 13:08:35 cycloben zaprine 10 mg tablet 2020 021 [facility] [address], [address], [place], [address], 11:41:08 glimepir brian 4 mg tablet 2020 021 [facility] [address], [address], [place], [address], 11:41:10 metformi n 1,000 mg tablet 2020 [facility] [address], [address], [place], [address], 1 11:41:09 pioglita zone 45 mg tablet 2020 [facility] [address], [address], [place], [address], 1 11:41:11 lovastat in 40 mg tablet 2020 021 [facility] [address], [address], [place], [address], 1 11:41:12 amlodipi ne 5 mg tablet 2020 [facility] [address], [address], [place], [address], 1 11:41:13 metoprol ol tartrate 50 mg tablet 2020 021 [facility] [address], [address], [place], [address], 1 11:41:07 cycloben zaprine 10 mg tablet 2019 020 [facility] [address], [address], [place], [address], 0 11:40:40 gabapent in 300 mg capsule 2019 020 [facility] [address], [address], [place], [address], 0 11:40:35 glimepir brian 4 mg tablet 2019 [facility] [address], [address], [place], [address], 0 11:40:36 pioglita zone 45 mg tablet 2019 020 [facility] [address], [address], [place], [address], 0 11:40:36 metformi n 1,000 mg tablet 2019 020 [facility] [address], [address], [place], [address], 0 11:35:30 Jardianc e 10 mg tablet 2019 020 [email or web address]56196, [address] , [place], [place], [id number], 1 10:57:06 lovastat in 40 mg tablet 2019 020 [facility] [address], [address], [place], [address], 0 11:40:42 amlodipi ne 5 mg tablet 2019 020 [facility] [address], [address], [place], [address], 0 11:40:30 metoprol ol tartrate 50 mg tablet 2019 020 [facility] [address], [address], [place], [address], 0 11:35:16 Zithroma x Z-Telly 250 mg tablet 2019 020 [facility] #16954, [address] , [place], [place], [id number], 0 11:04:31 Antituss jaron DM 10 mg-100 mg/5 mL oral syrup 2019 020 [facility] #32988, [address], [place], [place], [id number], 0 11:32:54 ipratrop ium 0.5 mg-albut asael 3 mg (2.5 mg base)/3 mL nebuliza tion soln 2019 020 [facility] #03358, [address], [place], [place], [id number], 0 11:33:03 gabapent in 300 mg capsule 2018 019 [facility]38283, [address], [place], [place], [id number], 9 11:41:12 pioglita zone 45 mg tablet 2018 019 [facility] #04838, [address], [place], [place], [id number], 9 11:41:22 Jardianc e 10 mg tablet 2018 019 [email or web address] #57560, [address], [place], [place], [id number], 1 10:57:06 metformi n 1,000 mg tablet 2018 019 [facility] #91001, [address], [place], [place], [id number], 9 11:45:56 glimepir brian 4 mg tablet 2018 019 [facility] #69790, [address], [place], [place], [id number], 9 11:41:13 metoprol ol tartrate 50 mg tablet 2018 019 [facility] #75019, [address] [facility], [place], [place], [id number], 9 11:42:21 amlodipi ne 5 mg tablet 2018 019 [facility] #95227, [address] [facility], [place], [place], [id number], 9 11:42:23 lovastat in 40 mg tablet 2018 019 [facility] #97180, [address] [facility], [place], [place], [id number], 9 11:41:58 Patient TargetsNo targets recorded. Patient Instructions Encounter Date Encounter Id Patient Instructions Last Modified By Organization Details Last Modified Time 03/06/2019 [id number] deciding about using medicines to quit smoking [facility] Not available 03/06/2019 11:40:37 Quitting Tobacco : Care Instructions [facility] Not available 03/06/2019 11:40:37 When You Want to Lose Weight: Care Instructions [facility] Not available 03/06/2019 11:40:37 learning about high blood pressure [facility] Not available 03/06/2019 11:40:37 11/17/2019 [id number] deciding about using medicines to quit smoking [facility] Not available 11/17/2019 11:33:28 Quitting Tobacco : Care Instructions [facility] Not available 11/17/2019 11:33:28 When You Want to Lose Weight: Care Instructions [facility] Not available 11/17/2019 11:33:29 chronic obstructive pulmonary disease (COPD): care instructions [facility] Not available 11/17/2019 11:33:29 learning about copd and how to prevent lung infections [facility] Not available 11/17/2019 11:33:28 high cholesterol : care instructions [facility] Not available 11/17/2019 11:33:29 learning about high blood pressure [facility] Not available 11/17/2019 11:33:28 06/01/2020 [id number] deciding about using medicines to quit smoking [facility] Not available 06/01/2020 11:40:49 Quitting Tobacco : Care Instructions [facility] Not available 06/01/2020 11:40:50 When You Want to Lose Weight: Care Instructions [facility] Not available 06/01/2020 11:40:50 chronic obstructive pulmonary disease (COPD): care instructions [facility] Not available 06/01/2020 11:40:50 learning about copd and how to prevent lung infections [facility] Not available 06/01/2020 11:40:50 high cholesterol : care instructions [facility] Not available 06/01/2020 11:40:50 learning about high blood pressure [facility] Not available 06/01/2020 11:40:49 11/08/2020 [id number] deciding about using medicines to quit smoking [facility] Not available 11/08/2020 13:08:28 Quitting Tobacco : Care Instructions [facility] Not available 11/08/2020 13:08:27 When You Want to Lose Weight: Care Instructions si Not available 11/08/2020 13:08:28 chronic obstructive pulmonary disease (COPD): care instructions [facility] Not available 11/08/2020 13:08:27 learning about copd and how to prevent lung infections [facility] Not available 11/08/2020 13:08:27 high cholesterol : care instructions [facility] Not available 11/08/2020 13:08:27 learning about high blood pressure [facility] Not available 11/08/2020 13:08:28 Reason for Referral Neurologist Referral for Lum bar radiculopathy Referring Physician: Lee Rankin, Internal Medicine, Encounter Date: 03/06/2019 Neurologist Referral for Lum bar radiculopathy Referring Physician: Lee Rankin Internal Medicine, Encounter Date: 11/08/2020 Results Created Date Observation Date Name Description Value Unit Range Abnormal Flag Note LastModifiedBy Organization Detail LastModifiedTime 11/09/1911/08/2020 HbA1c (hemo globi n A1c), blood HbA1c 8.3% Not Available In-Office Order Internal Use Only DO Not Attach Compendium DO Not Attach Compendium, Do Not Delete/merge, [id number] 11/08/2020 13:06:22 Result Notes None recorded. Problems Name Problem SNOMED Code Status Onset Date Resolution Date Notes Provider Name and Address Organization Details Recorded Time Chronic obstructive pulmonary disease [id number] Geovanna Rankin MD Attn: Kendrick lalito,[address], [place], [address], [facility] 6 12:56:38 Tobacco dependence syndrome 70614856 Geovanna Rankin MD Attn: Arpitanikolas starkey,[address], [place], [address], [place] - [facility] 6 12:56:38 Chronic sciatica 763848651 Geovanna Rankin MD Attn: Kendrick lalito,[address], [place], [address], [place] - [facility] 6 12:56:38 Liver function tests outside reference range [id number] Geovanna Rankin MD Attn: Kendrick lalito,[address], [place], [address], [place] [facility] 6 12:56:38 Diabetes mellitus 08565636 Geovanna Rankin MD Attn: Kendrick lalito,[address], [place], [address], [place] - [facility] 6 12:56:38 Essential hypertension 76724320 Geovanna Rankin MD Attn: Kendrick lalito,[address], [place], [address], [place] - [facility] 6 12:56:38 Hyperlipidemia 33132321 Geovanna Rankin MD Attn: Kendrick g,[address], [place], [address], [place] - [facility] 6 12:56:38 Chronic low back pain [id number] Geovanna Rankin MD Attn: Kendrick starkey,[address], [place], [address], [place] - [facility] 6 12:56:38 Morbid obesity 124700097 Geovanna Rankin MD Attn: Kendrick starkey,[address], [place], [address], [facility] 6 12:56:38 Problem Notes None recorded. Medical Equipment None Reported. Allergies Allergen ID Allergen Name Allergen Category Reaction Reaction Severity Criticality Documentation Date Start Date Code Code System Note Provider Name and Address Organization Details Recorded Time 07669 shellfish derived food,medi cation Not available Not available Not available 03/29/2014 57083 UNK Not Available Not Available Not Available Medications Name Sig Start Date Stop Date Status Note LastModified by Organization Details LastModified Time cyclobenzap rine 10 mg tablet Take 1 tablet every day by oral route at bedtime for 90 days. active Not Available Not Available No t Available amoxicillin 500 mg capsule active Not Available Not Available Not Available gabapentin 600 mg tablet TAKE 1 TABLET BY MOUTH THREE TIMES DAILY 07/25 completed Not Available Not Available Not Available ipratropium 0.5 mg-albutero l 3 mg (2.5 mg base)/3 mL nebulizatio n soln Inhale 3 mL as needed by nebulizat ion route as directed for 1 day. 11/16 completed Not Available Not Available Not Available clindamycin HCl 300 mg capsule 01/20 completed Not Available Not Available Not Available azithromyci n 250 mg tablet TAKE 2 TABLETS BY MOUTH ON DAY 1, THEN TAKE 1 TABLET BY MOUTH DAILY FOR 4 DAYS 11/16 completed Not Available Not Available Not Available lovastatin 40 mg tablet TAKE 1 TABLET BY MOUTH EVERY DAY after dinner, active Not Available Not Available No t Available pioglitazon e 45 mg tablet TAKE 1 TABLET BY MOUTH EVERY DAY DIRECTED active Not Available Not Available No t Available amlodipine 5 mg tablet TAKE 1 TABLET BY MOUTH EVERY DAY DIRECTED active Not Available Not Available No t Available hydrocodone 10 mg-acetamin ophen 325 mg tablet TAKE 1 TABLET BY MOUTH EVERY 8 HOURS NEEDED FOR PAIN active Not Available Not Available No t Available Humalog U-100 Insulin 100 unit/mL subcutaneou s solution 07/25 completed Not Available Not Available Not Available metformin 1,000 mg tablet TAKE 1 TABLET BY MOUTH TWICE DAILY active Not Available Not Available No t Available lisinopril 10 mg tablet TAKE 1 TABLET BY MOUTH EVERY DAY 12/18 completed Not Available Not Available Not Available glimepiride 4 mg tablet TAKE 1 TABLET BY MOUTH EVERY DAY active Not Available Not Available No t Available metoprolol tartrate 50 mg tablet TAKE 1 TABLET 2 TIMES DAILYAS DIRECTED active Not Available Not Available No t Available gabapentin 300 mg capsule TAKE 1 CAPSULE 3 TIMES DAILY DIRECTED 2021 active Not Available Not Available Not Avai lable furosemide 20 mg tablet Take 1 tablet every day by oral route as directed for 10 days. 05/13 completed Not Available Not Available Not Available gabapentin 100 mg capsule active Not Available Not Available Not Available Ventolin HFA 90 mcg/actuati on aerosol inhaler Inhale 2 puffs every 4 hours by inhalatio n route as directed for 30 days. 12/18 completed Not Available Not Available Not Available Antitussive DM 10 mg-100 mg/5 mL oral syrup Take 10 mL every 4 hours by oral route as needed for 5 days. 11/16 completed Not Available Not Available Not Available TriLyte With Flavor Packets 420 gram oral solution active Not Available Not Available Not Available Januvia 100 mg tablet TAKE 1 TABLET BY MOUTH EVERY DAY active Not Available Not Available No t Available Jardiance 10 mg tablet TAKE 1 TABLET BY MOUTH EVERY DAY DIRECTED 06/01 completed Not Available Not Available Not Available Breo Ellipta 200 mcg-25 mcg/dose powder for inhalation Inhale 1 puff every day by inhalatio n route as directed for 30 days. 12/18 completed Not Available Not Available Not Available Vitals Date Recorded Body height Body mass index (BMI) Body weight Body temperature Oxygen saturation Oxygen saturation in Arterial blood by Pulse oximetry Heart rate Systolic blood pressure Diastolic blood pressure Provider Name and Address Organization Details Last Updated DateTime 9 177.8 cm 44 kg/m2 944395. 86 g 97.5 [degF] 97 % 97 % 90 /min 136 mm[Hg] 74 mm[Hg] Flako Ko [place] - [facility] 9 11:16:51 Date Recorded Body height Body mass index (BMI) Body weight Body temperature Oxygen saturation Oxygen saturation in Arterial blood by Pulse oximetry Heart rate Systolic blood pressure Diastolic blood pressure Provider Name and Address Organization Details Last Updated DateTime 0 177.8 cm 43.6 kg/m2 783841. 36 g 97.9 [degF] 95 % 95 % 83 /min 116 mm[Hg] 66 mm[Hg] Flako Ko [place] [facility] 0 15:33:12 Date Recorded Body height Body mass index (BMI) Body weight Body temperature Oxygen saturation Oxygen saturation in Arterial blood by Pulse oximetry Heart rate Systolic blood pressure Diastolic blood pressure Provider Name and Address Organization Details Last Updated DateTime 1 177.17 cm 46.1 kg/m2 632948. 25 g 98.2 [degF] 92 % 92 % 76 /min 132 mm[Hg] 72 mm[Hg] Flako Ko MA [facility] 1 12:51:30 Social History Question Answer Notes LastModified by Timehop ion Details LastModified Time Tobacco Smoking Status Current Some Day Smoker occasional cigar Petty Maldonado MA [facility] 03/29/2014 10:26:13 What Was The Date Of Your Most Recent Tobacco Screening? 01/20/2018 Information not available 10/09/2018 Sex: Unknown Functional Status None recorded. Mental Status None recorded. Family History Relationship Description Onset Age of this Age Resolved Age Notes LastModified by Organization Details LastModified Time Brother Malignant tumor of prostate [email or web address] Not available 2014 10:25:43 Brother Kidney disease [email or web address] Not available 2014 10:25:43 Medical History Condition Response High Blood Pressure Y Diabetes Y Past Encounters Encounter ID Performer Location Encounter Start Date Encounter Closed Date Diagnosis/Indication Diagnosis SNOMED-CT Code Diagnosis ICD10 Code Diagnosis Note [id number] KAMILA Hernandez (Adult Med) [address] [place] [address] 03/29/2014 09:59:51 03/29/2014 11:26:32 Diabetes mellitus 71990185 Essential hypertension 07108734 Hyperlipidemia 69611324 Chronic low back pain 807191403 Morbid obesity 023009649 [id number] KAMILA Hernandez (Adult Med) [address] [place] [address] 09/27/2014 10:13:36 09/27/2014 11:12:43 Diabetes mellitus 86595750 Essential hypertension 27125487 Morbid obesity 153816354 Chronic low back pain 831574801 Hyperlipidemia 49759698 Adult heal th examination 886969001 [id number] Ravi Pina Giovani (Adult Med) [address] [place] [address] 04/08/2015 16:34:35 04/08/2015 17:42:39 Diabetes mellitus 23036198 E13.65 Chronic low back pain 27 1977874 M54.5 Essential hypertension 07938070 I10 Hyperlipidemia 63373309 E78.5 Chronic ob structive pulmonary disease 03101450 J44.9 Tobacco de pendence syndrome 49511198 F17.290 [id number] MD Giovani Guevara (Adult Med) [address] [place] [address] 10/12/2015 11:58:12 10/12/2015 13:00:40 Diabetes mellitus 39125278 E13.65 Chronic low back pain 27 5500726 M54.5 Chronic ob structive pulmonary disease 96869784 J44.9 Essential hypertension 25189842 I10 Hyperlipidemia 60944036 E78.5 Morbid obesity 104802164 E66.01 Tobacco de pendence syndrome 90104600 F17.290 Chronic sciatica 5391448 01 M54.31 M54.32 Liver func tion tests outside reference range 253219615 R94.5 [id number] MD Giovani Guevara (Adult Med) [address] [place] [phone] 05/02/2016 12:19:15 05/02/2016 17:02:13 Diabetes mellitus 36522721 E13.65 Essential hypertension 37351351 I10 Hyperlipidemia 53830069 E78.5 Chronic sciatica 9534492 01 M54.31 M54.32 Chronic low back pain 27 7565544 M54.5 Morbid obesity 210444575 E66.01 Chronic ob structive pulmonary disease 81216064 J44.9 Tobacco de pendence syndrome 47117911 F17.442 [id number] MD Giovani Guevara (Adult Med) [address] [place] [address] 12/18/2016 11:55:13 12/18/2016 13:41:14 Diabetes mellitus 23694982 E13.65 Diabetic diet, can not afford to see a ophthalmol ogist. Due to high HgA1c , will add second drug fi=or his DM, and encourage him to continue exercise and diabetic diet. and keep the weight down. Essential hypertension 21067669 I10 Low salt diet. Chronic ob structive pulmonary disease 19759478 J44.9 Stable, he dose not use inhaler. Chronic low back pain 27 4498235 M54.5 Stable. Chronic sciatica 8292758 01 M54.31 M54.32 Stable. Hyperlipidemia 47184013 E78.5 Jose saturated fa diet. Hyperkalemia 17421942 E8 7.5 D/C lisinopril . amlodipine 5 mg/ day. and repeat BMP within few days. to monitor his potassium. [id number] [facility] [address] [place] [address] 07/25/2017 12:36:05 07/25/2017 15:04:25 Essential hypertension 33837463 I10 Low salt diet. Chronic low back pain 27 6675143 M54.5 Stable. Under the care of neurology for the pain management . Dyslipidem ia due to type 2 diabetes mellitus 9407192695 02 E78.5 Diabetes mellitus 288401 09 E13.65 Diabetic diet, can not afford to see a ophthalmol ogist. Due to high HgA1c , will add second drug for his DM, and encourage him to continue exercise and diabetic diet. and keep the weight down. Type 2 Hyperkalemia 36418191 E8 7.5 D/C lisinopril . amlodipine 5 mg/ day. and repeat BMP within few days. to monitor his potassium. He did not do the BMP as ordered, potassium has come down to 5.9, will check BMP after short course of furosemide , [id number] MD Giovani Guevara (Adult Med) [address] [place] [phone] 01/20/2018 15:35:00 01/21/2018 11:57:19 Type 2 diabetes mellitus 17307694 E11.65 Impotence 582431359 N52. 9 Due to the possible drug -drug interactio n with jardiance and hydrocodon e , there viagra / cialis /levetril can not prescribed , patient informed in office , advised to discuss with his neurologis t. Diabetes mellitus 786462 09 E13.65 Diabetic diet, can not afford to see a ophthalmol ogist. Due to high HgA1c , will add second drug for his DM, and encourage him to continue exercise and diabetic diet. and keep the weight down. Type 2 Essential hypertension 05847244 I10 Low salt diet. Dyslipidem ia due to type 2 diabetes mellitus 9754599470 02 E78.5 Jose saturated fat diet. [id number] MD Giovani Guevara (Adult Med) [address] [place] [address] 05/13/2018 11:55:47 05/15/2018 09:08:36 Type 2 diabetes mellitus 38591590 E11.65 Diabetic diet, exercise and keep the weight down. HgA1 c was 7.1% , he is informed in office today 05-13-2018 . Dyslipidem ia due to type 2 diabetes mellitus 4397538633 02 E78.5 Jose saturated fat diet. Essential hypertension 47519347 I10 Low salt diet. History of cerebrovascular accident 546003347 Z86.73 Stable. Right hemiparesis 515920 009 G81.90 Stable. Lumbar radiculopathy 128 680170 M54.16 He will have appointmen t with DR. Cardoso this Saturday. Diabetes mellitus 969300 09 E13.65 Diabetic diet, can not afford to see a ophthalmol ogist. Due to high HgA1c , will add second drug for his DM, and encourage him to continue exercise and diabetic diet. and keep the weight down. Type 2 [id number] MD Giovani Guevara (Adult Med) [address] [place] [phone] 11/26/2018 12:01:15 11/27/2018 10:59:04 Diabetes mellitus 69740789 E13.65 Diabetic diet, can not afford to see a ophthalmol ogist. Due to high HgA1c , will add second drug for his DM, and encourage him to continue exercise and diabetic diet. and keep the weight down. Type 2 Chronic ob structive pulmonary disease 03096935 J44.9 Stable, he dose not use inhaler. Liver func tion tests outside reference range 409839452 R94.5 Due to fatty liver. Morbid obesity 234123828 E66.01 Diet, exercise. Chronic sciatica 4949935 01 M54.31 M54.32 Stable. Hyperlipidemia 23609048 E78.5 Jose saturated fa diet. Essential hypertension 46692921 I10 Low salt diet. Tobacco de pendence syndrome 61291685 F17.290 Type 2 nasra betes mellitus 83671189 E11.65 Diabetic diet, exercise and keep the weight down. HgA1 c was 7.1% , he is informed in office today 05-13-2018 . Dyslipidem ia due to type 2 diabetes mellitus 0807244116 02 E78.5 Jose saturated fat diet. Lumbar radiculopathy 128 M54.16 He will have appointmen t with DR. Cardoso this Saturday. Diabetic p eripheral neuropathy 925572039 E11.40 Has seen his neurologis t for years for his neuropathy . [id number] Lee Rankin MD [place] (Adult Med) [address] [place] [address] 03/06/2019 10:30:13 03/09/2019 14:08:19 Chronic low back pain 811891936 M54.5 Stable. Under the care of neurology for the pain management . Diabetes mellitus 699755 09 E13.65 Diabetic diet, can not afford to see a ophthalmol ogist. Due to high HgA1c , will add second drug for his DM, and encourage him to continue exercise and diabetic diet. and keep the weight down. Type 2 Essential hypertension 73887406 I10 Low salt diet. Morbid obesity 452128971 E66.01 Diet, exercise. Lose weight. Tobacco de pendence syndrome 95096078 F17.290 Advised him to quit , he will try. Type 2 nasra betes mellitus 94005365 E11.65 Diabetic diet, exercise and keep the weight down. HgA1 c was 7.1% , he is informed in office today 05-13-2018 . Lumbar radiculopathy 128 M54.16 He will have appointmen t with DR. Cardoso this Saturday. Dyslipidem ia due to type 2 diabetes mellitus 0251065515 02 E78.5 Jose saturated fat diet. [id number] MD Giovani Guevara (Adult Med) [address] [place] [phone] 04/09/2019 14:46:29 04/10/2019 12:51:03 Acute respiratory infections 237983780 J22 He can breathe better , less heezing, more audible breathing sound after treament. [id number] MD Giovani Guevara (Adult Med) [address] [place] [phone] 11/17/2019 09:07:52 11/19/2019 14:49:24 Chronic low back pain [id number] M54.5 Stable. Under the care of neurology for the pain management . Chronic ob structive pulmonary disease 32533128 J44.9 Stable, he dose not use inhaler. Tobacco de pendence syndrome 81974208 F17.290 Advised him to quit , he will try. Chronic sciatica 6068301 01 M54.31 M54.32 Stable. Diabetes mellitus 835397 09 E13.65 Diabetic diet, can not afford to see a ophthalmol ogist. Due to high HgA1c , will add second drug for his DM, and encourage him to continue exercise and diabetic diet. and keep the weight down. Type 2 Essential hypertension 14159119 I10 Low salt diet. Hyperlipidemia 79311635 E78.5 Jose saturated fa diet. Morbid obesity 958872701 E66.01 Diet, exercise. Lose weight. Type 2 nasra betes mellitus 76792054 E11.65 Diabetic diet, exercise and keep the weight down. HgA1 c was 7.1% , he is informed in office today 05-13-2018 . Dyslipidem ia due to type 2 diabetes mellitus [id number] 02 E78.5 Jose saturated fat diet. Lumbar radiculopathy 128 626879 M54.16 He will have appointmen t with DR. Cardoso this Saturday. [id number] MD Giovani Guevara (Adult Med) [address] [place] [phone] 06/01/2020 08:29:50 06/02/2020 11:48:04 Chronic low back pain 010298768 M54.5 Stable. Under the care of neurology for the pain management . Chronic ob structive pulmonary disease 56168175 J44.9 Stable, he dose not use inhaler. Chronic sciatica 9728690 M54.31 M54.32 Stable. Diabetes mellitus 709783 09 E13.65 Diabetic diet, can not afford to see a ophthalmol ogist. Due to high HgA1c , will add second drug for his DM, and encourage him to continue exercise and diabetic diet. and keep the weight down. Type 2 Essential hypertension 08132454 I10 Low salt diet. Hyperlipidemia 98315642 E78.5 Low unsaturate d fat diet. Morbid obesity 552387991 E66.01 Diet, exercise. Lose weight. Tobacco de pendence syndrome 97520566 F17.290 Advised him to quit , he will try. Lumbar radiculopathy 128 662766 M54.16 He will have appointmen t with DR. Cardoso this Saturday. Type 2 nasra betes mellitus 64999578 E11.65 Diabetic diet, exercise and keep the weight down. HgA1 c was 7.1% , he is informed in office today 05-13-2018 . Dyslipidem ia due to type 2 diabetes mellitus 5601384162 02 E78.5 Low unsaturate d fat diet. Low animal fat diet. [id number] Lee Rankin MD [facility] (Adult Med) [address] [place] [phone] 11/08/2020 12:23:24 11/10/2020 11:29:25 Diabetes mellitus 11363323 E13.65 Diabetic diet, can not afford to see a ophthalmol ogist. Due to high HgA1c , will add second drug for his DM, and encourage him to continue exercise and diabetic diet. and keep the weight down. Type 2 Chronic low back pain 27 8473537 M54.5 Stable. Under the care of neurology for the pain management . Chronic ob structive pulmonary disease 80101470 J44.9 Stable, he dose not use inhaler. Chronic sciatica 8756019 M54.31 M54.32 Stable. Will see his neurologis t in the near future,. Essential hypertension 51247373 I10 Low salt diet. Avoid NSAID or OTC decongesta nt. Hyperlipidemia 83328891 E78.5 Low unsaturate d fat diet. Morbid obesity 922372248 E66.01 Diet, exercise. Lose weight. Tobacco de pendence syndrome 02228319 F17.290 Advised him to quit , he will try. Lumbar radiculopathy 128 614078 M54.16 He will have appointmen t with DR. Cardoso this Saturday. Type 2 nasra betes mellitus 63952933 E11.65 Diabetic diet, exercise and keep the weight down. HgA1 c was 7.1% , he is informed in office today 05-13-2018 . Dyslipidem ia due to type 2 diabetes mellitus 8186771770 02 E78.5 Low unsaturate d fat diet. Low animal fat diet. Health Concerns Section Related Observation LastModified by Organization Detai ls LastModified Time None Recorded Concern Status LastModified by Organization Details LastModified Time None Recorded Advance Directives Directive None Recorded Payers Encounter Date Sequence Insurance Name Policy Number Policy Escalera Covered Member ID Escalera Member ID Guarantor Name 03/06/2019 1 [facility] (MEDICARE REPLACEMENT HMO) [id number] Walter Provence [id number] Walter Provence 04/09/2019 1 [employer] (MEDICARE REPLACEMENT HMO) [id number] Walter D Provence [id number] Walter Provence 11/17/2019 1 [employer] (MEDICARE REPLACEMENT/A DVANTAGE - HMO) [id number] Walter D Provence [id number] Walter Provence 06/01/2020 1 [employer] (MEDICARE REPLACEMENT/A DVANTAGE - HMO) [id number] Walter D Provence [id number] Walter Provence 11/08/2020 1 [employer] (MEDICARE REPLACEMENT/A DVANTAGE - HMO) [id number] Walter D Provence [id number] Walter Provence Notes Date Note Type Note Provider Name and Address Organization Details Recorded Time 03/06/2019 text/html F/U for type 2 D M , hypertension. lumbar radiculopathy, dyslipidemia and obesity, wanting to be referred to his neurologist for his chronic pain, allergic to shellfish. Ran out metoprolol tartrate. Lee Rankin MD Attn: [address] [place], [address], [place] [facility] 03/06/2019 11:58:34 04/09/2019 text/html Congestion of sinus and chest for about one week, still smokes cigarettes, allergic to self fish. Walks with cane. Lee Rankin MD Attn: [employer], [place], [address], [place] [facility] 04/09/2019 16:34:04 11/17/2019 text/html This is phone visit, due to dee virus pandemic, he understood and agreed, allergic to shellfish derived, history of copd, tobacco dependence syndrome, dyslipidemia , type 2 DM, chronic back ppain with sciatica and hypertension. Lee Rankin MD Attn: Account[address], [place], [address], [facility] - [facility] 11/17/2019 11:33:49 06/01/2020 text/html This id phone visit, due to dee virus pandemic, he understood and agreed, allergic to shellfish derived, history of chronic back pain, COPD,Chronic sciatica, type 2 DM, hypertension, morbid obesity and tobacco dependence syndrome., Wants home delivery refills. Lee Rankin MD Attn: [address] [facility], [place], [address], [facility] - [facility] 06/01/2020 11:41:08 11/08/2020 text/html Office visit, walks with cane, due to chronic right sciatica from herniated disc, allergic to shellfish derived, history of hypertension, type 2 DM, COPD, obesity, dyslipidemia, wants refill all medications. Lee Rankin MD Attn: [address] [facility], [place], [address], [place] [facility] 11/08/2020 13:21:42
--- NOTE | 2024-05-05 12:30 | ECHO_ITS ---
Patient Info Name: Walter Chavez Age: 63 years : 1960 Gender: Male Ht: 78 in Wt: 350 lbs BSA: 3.01 m2 HR: 105 bpm BP: 163 / 86 mmHg Heart Rhythm: Sinus Rhythm Technical Quality: Fair Exam Date: 05/05/2024 12:52 PM Exam Location: Echo Lab Patient Status: Outpatient Admit Date: 05/05/2024 Staff Ordering Physician: Onesimo Pedraza DO Electric Meter Technician: Flori Jones RDCS Attending Provider: Onesimo Pedraza DO Referring Physician: Milo CANTU; Exam Type: CA echo dop color flow w con Study Info Indications R60.0 - Localized edema Complete two-dimensional, color flow and Doppler transthoracic echocardiogram is performed with contrast to opacify the left ventricle and to improve the deliniation of the left ventricle endocardial borders. Contrast/Agitated Saline Contrast/Ag. Saline: Definity Amount: 2.00 ml Administered By: Flori Jones RDCS Existing IV Access: Yes IV Access Condition: patent with no signs of infiltration Summary 1. Definity contrast administered improved wall motion interpretation. 2. Left ventricular chamber dimension is normal. 3. Left ventricular systolic function is normal, estimated at 60-65%. 4. The left ventricular diastolic function is grade I diastolic dysfunction. 5. E/e' 8 is minimally elevated. 6. Left atrial chamber dimension is mildly enlarged. 7. The mitral valve has mildly calcified leaflets. Left Ventricle E/e' 8 is minimally elevated. Definity contrast administered improved wall motion interpretation. Left ventricular chamber dimension is normal. Left ventricular systolic function is normal, estimated at 60-65%. The left ventricular diastolic function is grade I diastolic dysfunction. Right Ventricle Right ventricular systolic function is normal and with normal TAPSE 2.5 cm. Right ventricular chamber dimension is normal. Left Atria Left atrial chamber dimension is mildly enlarged. Right Atria Right atrial chamber dimension is normal. Aortic Valve The aortic valve is trileaflet. There is no aortic valve stenosis. There is no aortic valve regurgitation. Pulmonic Valve There is no pulmonic regurgitation. Mitral Valve The mitral valve has mildly calcified leaflets. There is no mitral valve stenosis. There is no mitral valve regurgitation. Tricuspid Valve There is no tricuspid valve regurgitation. Pericardium/Pleural There is no pericardial effusion. Inferior Vena Cava Normal inferior vena cava with >50% collapse upon inspiration consistent with normal right atrial pressure, 5 mmHg. Aorta The aortic root size at the sinus of Valsalva is normal. Left Ventricular Outflow Tract Name Value Normal LVOT 2D LVOT Diameter 2.14 cm LVOT Doppler LVOT Peak Gradient 6 mmHg LVOT Mean Gradient 3 mmHg LVOT VTI 18.71 cm LVOT VTI/AV VTI Ratio 0.82 LVOT Stroke Volume 67.09 ml LVOT CO 6.44 l/min LVOT CI 2.14 L/min/m2 Mitral Valve Name Value Normal MV Doppler MV Decel [place] 381.28 cm/s2 MV PHT 0 s MV Area (PHT) 4.67 cm2 4.00-5.00 MV Diastolic Function MV E Peak Velocity 61.91 cm/s MV A Peak Velocity 87.46 cm/s MV E/A 0.71 MV Decel Time 0 s MV Annular TDI MV E/e' (Septal) 7.23 <=8.00 MV E/e' (Lateral) 10.53 <=8.00 MV E/e' (Average) 8.88 Tricuspid Valve Name Value Normal Estimated PAP/RSVP RA Pressure 5 mmHg <=5 Aorta Name Value Normal Ascending Aorta Ao Root Diameter (MM) 3.73 cm Ao Root Diam Index (MM) 1.24 cm/m2 Aortic Valve Name Value Normal AV Doppler AV Peak Velocity 137.02 cm/s AV Peak Gradient 8 mmHg AV Mean Gradient 4 mmHg AV VTI 22.90 cm AV Area (Cont Eq VTI) 2.93 cm2 >=3.00 AV Area (Cont Eq Tulio) 3.12 cm2 AV Regurgitation 2D LVOT Area 3.59 cm2 Ventricles Name Value Normal LV Dimensions 2D/MM IVS Diastolic Thickness (2D) 1.14 cm 0.60-1.00 LVID Diastole (2D) 5.55 cm 4.20-5.80 LVIW Diastolic Thickness (2D) 1.13 cm 0.60-1.00 LVID Systole (2D) 3.89 cm 2.50-4.00 LVOT Diameter 2.14 cm LV Mass (2D Cubed) 256.05 g 88.00-224.00 LV Mass Index (2D Cubed) 0.01 g/cm2 0.00-0.01 Relative Wall Thickness (2D) 0.41 LV Fractional Shortening/Ejection Fraction 2D/MM LV Fractional Shortening (2D) 30 % 25-43 LV EF (2D Teicholz) 57 % 52-72 LV Diastolic Volume (4C MOD) 51.44 ml LV EF (4C MOD) 68 % LV Diastolic Volume (2C MOD) 44.71 ml LV EF (2C MOD) 76 % LV Diastolic Volume (BP MOD) 48.21 ml 62.00-150.00 LV Diastolic Volume Index (BP MOD) 0.02 l/m2 0.03-0.07 LV Systolic Volume (BP MOD) 13.68 ml 21.00-61.00 LV Systolic Volume Index (BP MOD) 0.00 l/m2 0.01-0.03 LV EF (BP MOD) 72 % 52-72 LV Diastolic Length (4C) 8.02 cm LV Systolic Length (4C) 6.20 cm LV Stroke Volume (4C MOD) 34.88 ml Atria Name Value Normal LA Dimensions LA Dimension (MM) 5.51 cm 3.00-4.10 LA Volume (4C A-L) 55.79 ml LA Volume (BP A-L) 57.14 ml RA Dimensions RA Area (4C) 17.47 cm2 <=18.00 Report Signatures
[2024-05-05] MEDS: PERFLUTREN LIPID MICROSPHERES 1.5 ML VIAL DILUTED TO 10 ML TOTAL VOLUME IV PUSH (13:30)
--- NOTE | 2024-05-05 13:59 | IVDEFINITY ---
Prior to administration of IV Definity the patient was educated on the risks and benefits of the imaging enhancing agent including potential adverse side effects. The patient verbalized understanding. Allergies were verified. No exclusion criteria were identified and at least one of the following inclusion criteria were met: 1) physician request, 2) patient technically difficult to image (per the [place] [employer]chocardi[employer] guidelines of two or more segments not discernable within the apical view), or 3) questionable left ventricular function. ?
== END 2024-05-05 12:26 | disposition home or self-care (01) ==
PROVIDERS: PCP Nurse Practitioner; Visit Provider Internal Medicine Cardiovascular Disease
DX: R60.0 Localized edema (principal)
CPT/HCPCS: C8929; Q9957

== ENCOUNTER 2024-09-04 08:01 | Outpatient (CLI) | payer MEDICARE, SELFPAY ==
--- NOTE | ~2024-09-04 | XR_ITS ---
XR chest 2V Ordering provider: Christopher Kirk APRN History: 63 years Male with . R06.02 - Shortness of breath . Comparison: March 04, 2024 FINDINGS: MEDIASTINUM: The cardiac silhouette is slightly enlarged. Congestive mae. LUNGS: No infiltrates, effusions or pneumothorax. Subsegmental atelectasis in the right and left mid zones. OTHER: No free air under the diaphragm. Degenerative changes of the spine. IMPRESSION: No definite acute cardiopulmonary pathology. Reviewed, dictated and finalized at location A.
== END 2024-09-04 08:02 | disposition home or self-care (01) ==
LOC: MICIMG 08:01
PROVIDERS: PCP Nurse Practitioner; Visit Provider Nurse Practitioner
DX: R06.02 Shortness of breath (principal)
CPT/HCPCS: 71046

== ENCOUNTER 2025-02-01 14:29 | Outpatient (CLI) | payer MEDICARE, SELFPAY ==
--- NOTE | ~2025-02-01 | CT_ITS ---
EXAMINATION:CT lung screening DATE: 02/01/2025 14:51 INDICATION: Personal smoking history. TECHNIQUE: Computed tomography (CT) of the chest was performed without intravenous contrast. Automated exposure control and iterative reconstruction technique were employed. The dose-length product (DLP) was 565.73 mGy-cm. COMPARISON: CT chest dated 08/22/2023. FINDINGS: No evidence of pulmonary mass or nodule are seen. Mild centrilobular pattern of emphysema. Minimum linear fibrosis in the right upper lobe. No hilar, mediastinal lymphadenopathy or effusion. Calcified pleural plaque is noted over the diaphragmatic pleura in the left chest. Multiple calcified gallstones in the gallbladder in the upper abdomen. IMPRESSION: 1. Mild emphysematous lungs. No focal pulmonary mass or nodule are seen. 2. Calcified pleural plaque over the diaphragmatic pleura of the left chest. Suggestion of possible asbestos exposure and pleural disease. Please correlate with occupational history. 3. Continue annual low-dose CT screening. LUNG-RADS Category 2 Reviewed, dictated and finalized at location T. ECT MANAGEMENT PROFESSIONAL IMPRESSION: 1. Mild emphysematous lungs. No focal pulmonary mass or nodule are seen. 2. Calcified pleural plaque over the diaphragmatic pleura of the left chest. Uribe ggestion of possible asbestos exposure and pleural disease. Please correlate wi th occupational history. 3. Continue annual low-dose CT screening. LUNG-RADS Category 2
== END 2025-02-01 14:30 | disposition home or self-care (01) ==
PROVIDERS: PCP Nurse Practitioner; Visit Provider Nurse Practitioner Family
DX: Z12.2 Encounter for screening for malignant neoplasm of respiratory organs (principal); Z87.891 Personal history of nicotine dependence
CPT/HCPCS: 71271